=== PATIENT | male | born 1960 | race Caucasian/White ===

== ENCOUNTER → 2019-10-23 14:36 | Outpatient (BNVA) | payer MEDICARE, MEDICAID, SELFPAY | PROVIDERS: Family Provider Internal Medicine; PCP Internal Medicine; Visit Provider Specialist | DX: G40.409 Other generalized epilepsy and epileptic syndromes, not intractable, without status epilepticus (principal); G80.9 Cerebral palsy, unspecified | CPT/HCPCS: 99213 ==

== ENCOUNTER → 2020-04-22 14:15 | Outpatient (BNVA) | payer MEDICARE, MEDICAID, SELFPAY | PROVIDERS: Family Provider Internal Medicine; PCP Internal Medicine; Visit Provider Specialist | DX: G40.909 Epilepsy, unspecified, not intractable, without status epilepticus (principal); G80.9 Cerebral palsy, unspecified; F31.9 Bipolar disorder, unspecified | CPT/HCPCS: 99213 ==

== ENCOUNTER → 2020-11-18 14:13 | Outpatient (BNVA) | payer MEDICARE, MEDICAID, SELFPAY | PROVIDERS: Family Provider Internal Medicine; PCP Internal Medicine; Visit Provider Specialist | DX: G40.909 Epilepsy, unspecified, not intractable, without status epilepticus (principal); G80.9 Cerebral palsy, unspecified; F31.9 Bipolar disorder, unspecified | CPT/HCPCS: 99213 ==

== ENCOUNTER → 2020-12-25 13:10 | Outpatient (BNVA) | payer MEDICARE, MEDICAID, SELFPAY | PROVIDERS: Family Provider Internal Medicine; PCP Internal Medicine; Visit Provider Nurse Practitioner | DX: M79.642 Pain in left hand (principal) | CPT/HCPCS: 73130 ==

== ENCOUNTER → 2021-05-31 09:26 | Outpatient (BNVA) | payer MEDICARE, MEDICAID, SELFPAY | PROVIDERS: Family Provider Internal Medicine; PCP Internal Medicine; Visit Provider Specialist | DX: G40.409 Other generalized epilepsy and epileptic syndromes, not intractable, without status epilepticus (principal); F31.9 Bipolar disorder, unspecified; G80.9 Cerebral palsy, unspecified | CPT/HCPCS: 99213; 99214 ==

== ENCOUNTER → 2021-11-23 09:31 | Outpatient (BNVA) | payer MEDICARE, MEDICAID, SELFPAY | PROVIDERS: Family Provider Internal Medicine; PCP Internal Medicine; Visit Provider Specialist | DX: G40.909 Epilepsy, unspecified, not intractable, without status epilepticus (principal); G80.9 Cerebral palsy, unspecified; F31.9 Bipolar disorder, unspecified | CPT/HCPCS: 99213; 99214 ==

== ENCOUNTER → 2022-05-16 09:51 | Outpatient (BNVA) | payer MEDICARE, MEDICAID, SELFPAY | PROVIDERS: Family Provider Internal Medicine; Visit Provider Specialist | DX: G40.109 Localization-related (focal) (partial) symptomatic epilepsy and epileptic syndromes with simple partial seizures, not intractable, without status epilepticus (principal); G80.9 Cerebral palsy, unspecified; F31.9 Bipolar disorder, unspecified; F42.9 Obsessive-compulsive disorder, unspecified | CPT/HCPCS: 99214 ==

== ENCOUNTER 2022-05-24 08:29 | Outpatient (CLI) | payer MEDICARE, MEDICAID, SELFPAY ==
[2022-05-24 08:38] VITALS: BP 116/74; PULSE 94; RESP 16; TEMP 37.7; O2SAT 99
--- NOTE | 2022-05-24 08:44 | ECG_ITS ---
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 [id number]
[2022-05-24 09:13] LABS: Glucose Point of Care 194 mg/dL (70-110)
--- NOTE | 2022-05-24 09:23 | W.ED.SEIZURE ---
HPI - Seizure General: Chief Complaint: Seizure Stated Complaint: Seizure low blood sugar Time Seen by Provider: 05/24/22 08:44 Source: patient Mode of arrival: ambulatory History of Present Illness: HPI Narrative: 62-year-old male presents emergency room he has a history of seizures. He was given Ativan after a witnessed seizure this morning that lasted a couple of minutes. He was lethargic initially but improved by the time he arrived here he is nearly back to his baseline. Caregiver tried to get a blood sugar on him but they could not obtain 1 they are concerned his blood sugar may have been low he is diabetic he is on Amaryl 4 mg twice a day. Blood glucose here was 194 patient awake alert, at his baseline. No recent medication changes been over a year since he has had a breakthrough seizure. MD complaint: seizure Onset (ago): hour(s) Description of Episode: tonic-clonic movement Witnessed: Yes - by Bystander Trauma: No Seizure History: Yes Place: Home Associated symptoms: Reports confusion (Transient resolved); Deny chest pain, chills, cough, diaphoresis, fever(s), anorexia, malaise, rash, short of breath, syncope or weakness Treatments prior to arrival: benzodiazepines and other (Glucose) Review of Systems Const: Denies: fever(s), chills, fatigue, malaise or diaphoresis ENMT: Denies: throat pain, ear or mastoid pain, nasal discharge or nasal congestion Card: Denies: chest pain, palpitations, irregular heart rhythm or syncope Resp: Denies: dyspnea, productive cough or non-productive cough GI: Denies: abdominal pain, nausea, vomiting, hematemesis, coffee ground emesis, diarrhea, constipation, bloating, hematochezia or melena : Denies: flank pain, dysuria, urinary frequency or urinary urgency Skin/Breast: Denies: rash or pruritus Neuro: Reports: confusion (Transient resolved) PFS ED PFSH: Medical History (Updated 05/24/22 @ 10:54 by Morgan Beach DO) ADD (attention deficit disorder) Bipolar affective disorder Cerebral palsy Diabetes Seizures Social History Smoking and tobacco status: never smoked Alcohol intake: never Physical Exam Const: COMMON NORMALS: no acute distress GENERAL APPEARANCE: cooperative and comfortable ORIENTATION/CONSCIOUSNESS: Yes awake HENMT: COMMON NORMALS: normocephalic, atraumatic and hearing grossly normal bilaterally HEAD & SCALP: normocephalic and atraumatic Resp: COMMON NORMALS: normal respiratory effort, No retractions, No use of accessory muscles and clear to auscultation bilaterally AUSCULTATION: clear to auscultation bilaterally Cardio: COMMON NORMALS: regular rate, regular rhythm and No murmurs present (Cardio) RATE: regular rate RHYTHM: regular rhythm GI: COMMON NORMALS: Soft to palpation and No hepatosplenomegaly present AUSCULTATION: Yes normoactive bowel sounds PALPATION: Yes Soft to palpation, No Tenderness to palpation present (GI), No Guarding due to palpation present (GI) and Yes No hepatosplenomegaly present Extremity: COMMON NORMALS: normal to inspection, capillary refill normal, no clubbing, cyanosis or edema, no calf tenderness and no pedal edema Skin: COMMON NORMALS: no rashes or lesions noted GENERAL SKIN EXAM: no rashes or lesions noted Course Vital Signs: Vital signs: Vital Signs Temperature 99.8 F H 05/24/22 08:38 Pulse Rate 79 05/24/22 10:45 Respiratory Rate 16 05/24/22 08:38 Blood Pressure 116/74 05/24/22 08:38 Pulse Oximetry 95 05/24/22 10:45 Oxygen Delivery Me thod 05/24/22 10:45 MDM - Seizure MDM Narrative Medical decision making narrative: Breakthrough seizure in patient with known history of seizure disorder. No recent medication changes. Lacosamide level done. Refer back to neurology no changes at this time patient initially postictal he recovered from that and is doing well. Additionally did report hypoglycemia prior to EMS arriving. His blood sugars been stable here usually with a sulfonylurea but they have we have extended hypoglycemic episode with recurrent lows. He has not had that here. Because the risk of triggering another seizure would recommend that he cut down to the Amaryl once daily. Follow-up with his primary care doctor regarding continuing at that dose. Lab Data 05/24/22 09:35 05/24/22 09:35 Labs: Laboratory Results WBC 8.7 10^3/uL (4.0-10.0) 05/24/22 09:35 RBC 4.53 10^6/uL (4.1-5.3) 05/24/22 09:35 Hgb 13.1 g/dL (11.7-16.6) 05/24/22 09:35 Hct 39.5 % (42.0-52.0) L 05/24/22 09:35 MCV 87.2 fl (80-94) 05/24/22 09:35 MCH 28.9 pg (28.0-34.0) 05/24/22 09:35 MCHC 33.2 g/dL (30.0-36.0) 05/24/22 09:35 RDW 13.1 % (12.1-15.1) 05/24/22 09:35 Plt Count 192 10^3/cmm (130-400) 05/24/22 09:35 MPV 10.0 fL (7.4-10.4) 05/24/22 09:35 Neut % (Auto) 87.1 % 05/24/22 09:35 Lymph % (Auto) 4.6 % 05/24/22 09:35 Morrison % (Auto) 7.2 % 05/24/22 09:35 Eos % (Auto) 0.3 % 05/24/22 09:35 Baso % (Auto) 0.5 % 05/24/22 09:35 Neut # (Auto) 7.57 10^3/uL (1.8-7.7) 05/24/22 09:35 Lymph # (Auto) 0.4 10^3/uL (0.8-4.8) L 05/24/22 09:35 Morrison # (Auto) 0.6 10^3/uL (0.2-0.9) 05/24/22 09:35 Eos # (Auto) 0.0 10^3/uL (0.0-0.8) 05/24/22 09:35 Baso # (Auto) 0.0 10^3/uL (0.0-0.1) 05/24/22 09:35 Nucleated RBC % (auto) 0 % 05/24/22 09:35 Nucleated RBCs # 0.0 /100WBC 05/24/22 09:35 Sodium 140 mmol/L (136-145) 05/24/22 09:35 Potassium 4.0 mmol/L (3.5-5.1) 05/24/22 09:35 Chloride 100 mmol/L (98-107) 05/24/22 09:35 Carbon Dioxide 28 mmol/L (22-29) 05/24/22 09:35 Anion Gap 16.0 (5-19) 05/24/22 09:35 BUN 12 mg/dL (8-23) 05/24/22 09:35 Creatinine 0.7 mg/dL (0.7-1.2) 05/24/22 09:35 GFR Calculation 113.9 mL/min (90-130) 05/24/22 09:35 Glucose 184 mg/dL (65-115) H 05/24/22 09:35 POC Glucose 157 mg/dL (70-110) H 05/24/22 10:40 Calculated Osmolality 295 mOsm/kg (285-295) 05/24/22 09:35 Calcium 9.5 mg/dL (8.5-10.5) 05/24/22 09:35 Urine Color Yellow (Yellow) 05/24/22 10:10 Urine Appearance Clear (CLEAR) 05/24/22 10:10 Urine pH 8 (5-7) H 05/24/22 10:10 Ur Specific [place] 1.010 (1.005-1.030) 05/24/22 10:10 Urine Protein Neg (Negative) 05/24/22 10:10 Urine Glucose (UA) Norm (Normal) 05/24/22 10:10 Urine Ketones Negative (Negative) 05/24/22 10:10 Urine Blood Neg (Negative) 05/24/22 10:10 Urine Nitrate Negative (Negative) 05/24/22 10:10 Urine Bilirubin Neg (Negative) 05/24/22 10:10 Prot Sulfosalicylic Acd Negative (Negative) 05/24/22 10:10 Urine Urobilinogen Norm mg/dL (Negative) 05/24/22 10:10 Ur Leukocyte Esterase Negative (Negative) 05/24/22 10:10 Discharge Plan Discharge Patient Disposition: Home Clinical Impression: Seizures Condition: Stable Prescriptions: Changed glimepiride 4 mg tablet 4 mg PO DAILY Qty: 30 0RF Rx Instructions: 4 mg orally; No Action multivitamin Capsule 1 cap PO DAILY acetaminophen [Tylenol] 325 mg capsule 650 mg PO QID PRN (Reason: Pain) diphenhydramine HCl [Benadryl] 25 mg capsule 25 mg PO TID PRN (Reason: Allergy Symptoms) calcium carbonate [Oyster Shell Calcium] 500 mg calcium (1,250 mg) tablet 500 mg PO DAILY paroxetine HCl [Paxil] 30 mg tablet 30 mg PO DAILY Qty: 30 5RF omeprazole 20 mg capsule,delayed release(DR/EC) 20 mg PO DAILY Qty: 30 5RF ondansetron HCl [Zofran] 4 mg tablet 4 mg PO Q8H PRN (Reason: nausea and vomiting) Qty: 30 3RF alum-mag hydroxide-simeth [Giana-Lanta] 200-200-20 mg/5 mL suspension 10 ml PO Q6H PRN (Reason: indigestion) Qty: 3000 3RF guaifenesin [Adult Tussin Chest Congestion] 100 mg/5 mL liquid 200 mg PO Q4H PRN (Reason: cough) Qty: 473 0RF Nizoral A-D 1 % shampoo 1 applic topical .four times weekly Qty: 200 3RF loratadine 10 mg tablet 10 mg PO DAILY Qty: 90 3RF magnesium hydroxide [Milk of Magnesia] 400 mg/5 mL suspension See Rx Instructions PO .COMPLEX PRN (Reason: constipation) Qty: 473 5RF Rx Instructions: 30ML PO on 4th day if no BM in 3 days. Call nurse on 5th day. carbamide peroxide [Debrox] 6.5 % drops See Rx Instructions EAR-BOTH .COMPLEX Qty: 15 5RF Rx Instructions: Fill each ear canal daily x 4 days per month; (DME) True Metrix Glucose Test Strip Strip See Rx Instructions .ROUTE .MEDSUPPLY Qty: 100 3RF Rx Instructions: As directed to test blood sugar daily (DME) lancets [TRUEplus Lancets] 30 gauge misc See Rx Instructions .ROUTE .MEDSUPPLY Qty: 100 5RF Rx Instructions: As directed to test blood sugar daily lorazepam [Ativan] 1 mg tablet 1 mg PO Q4H PRN (Reason: agitation) Qty: 20 3RF Vimpat 200 mg tablet 200 mg PO BID Qty: 60 5RF lorazepam [Ativan] 0.5 mg tablet 0.5 mg PO DAILY PRN (Reason: seizure activity) Qty: 90 0RF trazodone 50 mg tablet See Rx Instructions .ROUTE .COMPLEX Qty: 30 5RF Dose Instruction: TAKE 1/2 TABLET BY MOUTH AT BEDTIME Rx Instructions: TAKE 1/2 TABLET BY MOUTH AT BEDTIME polyethylene glycol 3350 [Miralax] 17 gram/dose powder 17 g PO DAILY Qty: 510 3RF Januvia 100 mg tablet See Rx Instructions .ROUTE .COMPLEX Qty: 30 5RF Dose Instruction: TAKE ONE TABLET BY MOUTH EVERY DAY Rx Instructions: TAKE ONE TABLET BY MOUTH EVERY DAY olanzapine 10 mg tablet See Rx Instructions .ROUTE .COMPLEX Qty: 30 5RF Dose Instruction: TAKE 1/2 TABLET BY MOUTH TWICE DAILY Rx Instructions: TAKE 1/2 TABLET BY MOUTH TWICE DAILY Depakote 250 mg Tablet,Delayed Release (Dr/Ec) 250 mg PO BID Discharge Orders: Discharge ED (Routine); Ordered 05/24/22 Ordered By: Morgan Beach Referrals: Eduin Elias MD [Primary Care Provider] - Patient Instructions: Opioid Safety, Pain Management Activity Restrictions/Additional Instructions: You were seen for a seizure this morning. The report was that your blood sugar was low in outpatient setting was normal while here and remained stable. Recommend that you decrease your Amaryl to 1 tablet daily. Follow-up with your primary care doc within the next 2 to 3 weeks to reevaluate. Follow-up with Dr. Shepard regarding her seizures. A lacosamide level was done here in the emergency room. No recommendation for change in medications Dr. Shepard will address this issue. 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
[2022-05-24 09:53] LABS: Basophils % 0.5 %; Eosinophils % 0.3 %; Hematocrit 39.5 % (42.0-52.0); Hemoglobin 13.1 g/dL (11.7-16.6); Lymphocytes # 0.4 10^3/uL (0.8-4.8); Lymphocytes % 4.6 %; Mean Corpuscular HGB Conc 33.2 g/dL (30.0-36.0); Mean Corpuscular Hemoglobin 28.9 pg (28.0-34.0); Mean Corpuscular Volume 87.2 fl (80-94); Monocytes # 0.6 10^3/uL (0.2-0.9); Monocytes % 7.2 %; Neutrophils # 7.57 10^3/uL (1.8-7.7); Neutrophils % 87.1 %; Nucleated Red Blood Cells % 0 %; Platelet Count 192 10^3/cmm (130-400); Red Blood Count 4.53 10^6/uL (4.1-5.3); Red Cell Distribution Width 13.1 % (12.1-15.1); White Blood Count 8.7 10^3/uL (4.0-10.0)
[2022-05-24 10:13] LABS: Add Urine Microscopic? NO; Charge for UA Resulting for Rev
[2022-05-24 10:21] LABS: Blood Urea Nitrogen 12 mg/dL (8-23); Calcium 9.5 mg/dL (8.5-10.5); Carbon Dioxide 28 mmol/L (22-29); Chloride 100 mmol/L (98-107); Glomerular Filtration Rate 113.9 mL/min (90-130); Glucose 184 mg/dL (65-115); Osmolality Calculated 295 mOsm/kg (285-295); Sodium 140 mmol/L (136-145)
[2022-05-24 10:24] VITALS: PULSE 77; O2SAT 97
[2022-05-24 10:31] LABS: Bilirubin Urine Neg (Negative); Blood Urine Neg (Negative); Glucose Urine UA Norm (Normal); Ketones Urine Negative (Negative); Leukocyte Esterase Urine Negative (Negative); Nitrate Urine Negative (Negative); Protein Urine Neg (Negative); Sulfosalicylic Acid Urine Negative (Negative); Urine Appearance Clear (CLEAR); Urine Color Yellow (Yellow); Urobilinogen Urine Norm (Negative); pH Urine 8 (5-7)
[2022-05-24 10:42] LABS: Glucose Point of Care 157 mg/dL (70-110)
[2022-05-24 10:45] VITALS: PULSE 79; O2SAT 95
[2022-05-27 09:14] LABS: Lacosamie (Vimpat) 7.6 mcg/mL
--- NOTE | 2022-07-24 13:57 | XRR_ITS ---
PROCEDURE INFORMATION: Exam: XR Right Hip Exam date and time: 07/24/2022 1:59 PM Age: 62 years old Clinical indication: Injury or trauma; Fall; Blunt trauma (contusions or hematomas); Right; Hip; Additional info: Ground level fall and pain TECHNIQUE: Imaging protocol: Radiologic exam of the Right hip. Views: 1 view hip with pelvis when performed. COMPARISON: No relevant prior studies available. FINDINGS: Bones/joints: Intertrochanteric right hip fracture with foreshortening. Soft tissues: Unremarkable. XR/XR hip RT 2-3V wo/w pel* [id number] IMPRESSION: Intertrochanteric right hip fracture with foreshortening.
--- NOTE | 2022-07-24 13:57 | XRR_ITS ---
PROCEDURE INFORMATION: Exam: XR Right Femur Exam date and time: 07/24/2022 1:59 PM Age: 62 years old Clinical indication: Injury or trauma; Fall; Blunt trauma; Thigh or upper leg; Right; Additional info: Ground level fall and pain TECHNIQUE: Imaging protocol: Radiologic exam of the Right femur. Views: 2 views. COMPARISON: No relevant prior studies available. FINDINGS: Bones/joints: Intertrochanteric right hip fracture with foreshortening. The rest of the femur is intact. Soft tissues: Unremarkable. XR/XR femur RT min 2V* [id number] IMPRESSION: Intertrochanteric right hip fracture with foreshortening.
--- NOTE | 2022-07-24 13:57 | XRR_ITS ---
PROCEDURE INFORMATION: Exam: XR Right Tibia and Fibula Exam date and time: 07/24/2022 1:59 PM Age: 62 years old Clinical indication: Injury or trauma; Fall; Blunt trauma; Lower leg; Right; Additional info: Ground level fall and pain TECHNIQUE: Imaging protocol: Radiologic exam of the Right tibia and fibula. Views: 2 views. COMPARISON: No relevant prior studies available. FINDINGS: Bones/joints: Tibia and fibula are intact. Negative for fracture. Soft tissues: Normal. XR/XR tibia fibula RT 2V [id number] IMPRESSION: No acute findings.
== END 2022-07-24 13:24 | disposition home or self-care (01) ==
LOC: ER 10:54 → RAD 07-24 13:31
PROVIDERS: Emergency Provider Family Medicine; PCP Internal Medicine; Visit Provider Nurse Practitioner Family
DX: R56.9 Unspecified convulsions (principal); G80.9 Cerebral palsy, unspecified; E11.9 Type 2 diabetes mellitus without complications; W19.XXXA Unspecified fall, initial encounter; S72.091A Other fracture of head and neck of right femur, initial encounter for closed fracture
CPT/HCPCS: 36415; 36416; 73502; 73552; 73590; 80048; 80299; 81003; 82962; 85025; 93005; 99284

== ENCOUNTER 2022-07-24 15:45 | Inpatient (IN) | payer MEDICARE, MEDICAID, SELFPAY ==
--- NOTE | 2022-07-24 15:47 | XRR_ITS ---
PROCEDURE INFORMATION: Exam: XR Chest Exam date and time: 07/24/2022 4:24 PM Age: 62 years old Clinical indication: Injury or trauma; Fall; Blunt trauma (contusions or hematomas) TECHNIQUE: Imaging protocol: Radiologic exam of the chest. Views: 1 view. COMPARISON: No relevant prior studies available. FINDINGS: Lungs: Lungs are clear. Pleural spaces: There is no pleural effusion or pneumothorax. Heart/Mediastinum: Cardiomediastinal contours are unremarkable. Bones/joints: Bones are unremarkable. XR/XR chest 1V portable [id number] IMPRESSION: No acute findings.
[2022-07-24 15:48] VITALS: BMI 19.2
--- NOTE | 2022-07-24 16:00 | ED_ITS ---
HPI - Extremity Problem General: Chief complaint: Extremity Injury, Lower Stated complaint: Right hip pain Time Seen by Provider: 07/24/22 15:48 Source: family Mode of arrival: wheelchair Limitations: physical limitation History of Present Illness: 62-year-old male has a history of intellectual delay he lives in a prison he states that he was standing up from the bathroom and tripped on his pants and fell onto his right side he had right hip pain they took him to urgent care they had x-rays done that showed a right hip fracture. Denies any other injuries at this time. Review of Systems General: Reports: ROS unobtainable due to mental status PFS ED PFSH: Medical History (Updated 07/24/22 @ 16:04 by Caren Norman MD) ADD (attention deficit disorder) Bipolar affective disorder Cerebral palsy Diabetes Seizures Social History Smoking and tobacco status: never smoked Alcohol intake: never Physical Exam Const: COMMON NORMALS: negative for patient oriented x3 GENERAL APPEARANCE: patient mechanically ventilated HENMT: COMMON NORMALS: normocephalic and atraumatic HEAD & SCALP: normocephalic and atraumatic Eye: COMMON NORMALS: conjunctivae normal CONJUNCTIVA: Yes conjunctivae normal Neck/C-Spine: COMMON NORMALS: supple Chest: COMMONS NORMALS: normal inspection of the chest and normal palpation of entire chest wall Resp: COMMON NORMALS: normal respiratory effort Cardio: COMMON NORMALS: regular rate RATE: regular rate GI: INSPECTION: Yes normal to inspection Extremity: NARRATIVE EXTREMITY EXAM: Tenderness over right hip distal pulses intact Neuro: COMMON NORMALS: negative for patient oriented x3 Psych: COMMON NORMALS: cooperative Skin: COMMON NORMALS: no rashes or lesions noted GENERAL SKIN EXAM: no rashes or lesions noted MDM - Extremity (Nontraumatic) Medical Decision Making Patient presents here with right hip fracture from a fall he had no other known injuries he is at his baseline here spoke to hospitalist along with orthopedist and will admit. Discharge Plan Discharge Patient Disposition: Admitted As Inpatient Clinical Impression: Fracture of hip Condition: Stable Prescriptions: No Action multivitamin Capsule 1 cap PO DAILY acetaminophen [Tylenol] 325 mg capsule 650 mg PO QID PRN (Reason: Pain) omeprazole 20 mg capsule,delayed release(DR/EC) 20 mg PO DAILY Qty: 30 5RF glimepiride 4 mg tablet 4 mg PO DAILY Qty: 30 5RF Rx Instructions: 4 mg orally; alum-mag hydroxide-simeth [Giana-Lanta] 200-200-20 mg/5 mL suspension 10 ml PO Q6H PRN (Reason: indigestion) Qty: 3000 3RF guaifenesin [Adult Tussin Chest Congestion] 100 mg/5 mL liquid 200 mg PO Q4H PRN (Reason: cough) Qty: 473 0RF magnesium hydroxide [Milk of Magnesia] 400 mg/5 mL suspension See Rx Instructions PO .COMPLEX PRN (Reason: constipation) Qty: 473 5RF Rx Instructions: 30ML PO on 4th day if no BM in 3 days. Call nurse on 5th day. trazodone 50 mg tablet See Rx Instructions .ROUTE .COMPLEX Qty: 30 5RF Dose Instruction: TAKE 1/2 TABLET BY MOUTH AT BEDTIME Rx Instructions: TAKE 1/2 TABLET BY MOUTH AT BEDTIME Januvia 100 mg tablet See Rx Instructions .ROUTE .COMPLEX Qty: 30 5RF Dose Instruction: TAKE ONE TABLET BY MOUTH EVERY DAY Rx Instructions: TAKE ONE TABLET BY MOUTH EVERY DAY olanzapine 10 mg tablet See Rx Instructions .ROUTE .COMPLEX Qty: 30 5RF Dose Instruction: TAKE 1/2 TABLET BY MOUTH TWICE DAILY Rx Instructions: TAKE 1/2 TABLET BY MOUTH TWICE DAILY paroxetine HCl 30 mg tablet See Rx Instructions .ROUTE .COMPLEX Qty: 30 5RF Dose Instruction: TAKE ONE TABLET BY MOUTH DAILY Rx Instructions: TAKE ONE TABLET BY MOUTH DAILY Depakote 250 mg tablet,delayed release (DR/EC) 250 mg PO BID Qty: 60 11RF (DME) True Metrix Glucose Test Strip Strip See Rx Instructions .ROUTE .COMPLEX Qty: 100 5RF Dose Instruction: USE TO test blood sugar ONCE DAILY DIRECTED Rx Instructions: USE TO test blood sugar ONCE DAILY DIRECTED (DME) lancets [TRUEplus Lancets] 30 gauge misc See Rx Instructions .ROUTE .COMPLEX Qty: 100 5RF Dose Instruction: USE TO test blood sugar ONCE DAILY Rx Instructions: USE TO test blood sugar ONCE DAILY polyethylene glycol 3350 17 gram/dose powder See Rx Instructions .ROUTE .COMPLEX Qty: 510 5RF Dose Instruction: FILL CAP TO LINE (17 GRAMS), MIX IN 8 OUNCES OF LIQUID AND DRINK BY MOUTH ONCE DAILY Rx Instructions: FILL CAP TO LINE (17 GRAMS), MIX IN 8 OUNCES OF LIQUID AND DRINK BY MOUTH ONCE DAILY loratadine 10 mg tablet See Rx Instructions .ROUTE .COMPLEX Qty: 90 3RF Dose Instruction: TAKE ONE TABLET BY MOUTH EVERY DAY Rx Instructions: TAKE ONE TABLET BY MOUTH EVERY DAY Ear Wax Removal Drops 6.5 % drops See Rx Instructions .ROUTE .COMPLEX Qty: 15 5RF Dose Instruction: Fill each ear canal daily for 4 days per month; Rx Instructions: Fill each ear canal daily for 4 days per month; diphenhydramine HCl [Allergy Relief(diphenhydramin)] 25 mg tablet See Rx Instructions .ROUTE .COMPLEX Qty: 90 5RF Dose Instruction: TAKE ONE TABLET BY MOUTH EVERY 8 HOURS NEEDED FOR CONGESTION Rx Instructions: TAKE ONE TABLET BY MOUTH EVERY 8 HOURS NEEDED FOR CONGESTION ketoconazole 2 % shampoo See Rx Instructions .ROUTE .COMPLEX Qty: 200 3RF Dose Instruction: APPLY topically four times WEEKLY Rx Instructions: APPLY topically four times WEEKLY ondansetron 4 mg tablet,disintegrating See Rx Instructions .ROUTE .COMPLEX Qty: 30 5RF Dose Instruction: DISSOLVE ONE TABLET BY MOUTH NEEDED FOR NAUSEA AND VOMITING Rx Instructions: DISSOLVE ONE TABLET BY MOUTH NEEDED FOR NAUSEA AND VOMITING alcohol swabs Pads, Medicated See Rx Instructions .ROUTE .COMPLEX Qty: 100 5RF Dose Instruction: USE ONE pad topically daily DIRECTED Rx Instructions: USE ONE pad topically daily DIRECTED glucose 4 gram tablet,chewable See Rx Instructions .ROUTE .COMPLEX Qty: 50 0RF Dose Instruction: USE DIRECTED PER package directions Rx Instructions: USE DIRECTED PER package directions Vimpat 200 mg tablet 200 mg PO BID Qty: 60 5RF lorazepam 0.5 mg tablet 0.5 mg PO BID PRN (Reason: seizures) Qty: 40 3RF calcium carbonate-vitamin D3 [Oyster Shell Calcium-Vit D3] 500 mg-5 mcg (200 unit) tablet See Rx Instructions .ROUTE .COMPLEX Qty: 30 5RF Dose Instruction: TAKE ONE TABLET BY MOUTH EVERY DAY FOR SUPPLEMENT Rx Instructions: TAKE ONE TABLET BY MOUTH EVERY DAY FOR SUPPLEMENT fluticasone propionate 50 mcg/actuation spray,suspension See Rx Instructions .ROUTE .COMPLEX Qty: 16 0RF Dose Instruction: USE ONE SPRAY IN EACH NOSTRIL EVERY DAY NEEDED FOR nasal congestion Rx Instructions: USE ONE SPRAY IN EACH NOSTRIL EVERY DAY NEEDED FOR nasal congestion Sentry 18-400 mg-mcg tablet See Rx Instructions .ROUTE .COMPLEX Qty: 30 0RF Dose Instruction: TAKE ONE TABLET BY MOUTH EVERY DAY FOR supplement Rx Instructions: TAKE ONE TABLET BY MOUTH EVERY DAY FOR supplement Referrals: Bernard Gonzalez DO [Primary Care Provider] - Coding Level of Care Code ED Broadcast Maintenance Engineer for g Dorothy
--- NOTE | 2022-07-24 16:02 | ECG_ITS ---
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 Measurements Intervals [place] Rate: 97 P: 84 WI: 202 QRS: 77 QRSD: 100 T: 70 QT: 316 QTc: 402 Interpretive Statements SINUS RHYTHM INCOMPLETE RIGHT BUNDLE BRANCH BLOCK [90+ ms QRS DURATION, TERMINAL R IN V1/V2, 40+ ms S IN I/aVL/V4/V5/V6] Compared to ECG 05/24/2022 10:06:23 First degree AV block no longer present Electronically Signed On 07-25-2022 8:53:26 SEED CORN MANAGER PRODUCTION by Carlos Escalera M.D. [id number]
[2022-07-24] MEDS: morphine 4 mg/mL SDV 1 mL IVP (16:07)
[2022-07-24] MEDS: ondansetron 2 mg/ML SDV 2 mL 4 MG IVP (16:07)
[2022-07-24 16:12] LABS: Basophils % 0.3 %; Hematocrit 33.6 % (42.0-52.0); Hemoglobin 11.1 g/dL (11.7-16.6); Lymphocytes # 0.4 10^3/uL (0.8-4.8); Lymphocytes % 2.5 %; Mean Corpuscular Hemoglobin 28.5 pg (28.0-34.0); Mean Corpuscular Volume 86.2 fl (80-94); Mean Platelet Volume 10.2 fL (7.4-10.4); Monocytes # 0.6 10^3/uL (0.2-0.9); Monocytes % 4.3 %; Neutrophils # 13.54 10^3/uL (1.8-7.7); Neutrophils % 92.5 %; Nucleated Red Blood Cells % 0 %; Platelet Count 284 10^3/cmm (130-400); Red Cell Distribution Width 13.7 % (12.1-15.1); White Blood Count 14.6 10^3/uL (4.0-10.0)
[2022-07-24 16:25] LABS: INR 1.01 (0.8-1.2)
[2022-07-24 16:34] LABS: Alanine Aminotransferase 13 U/L (0-41); Albumin Level 4.3 g/dL (3.5-5.2); Alkaline Phosphatase 71 U/L (40-130); Aspartate Amino Transferase 17 U/L (0-40); Blood Urea Nitrogen 15 mg/dL (8-23); Calcium 9.1 mg/dL (8.5-10.5); Carbon Dioxide 26 mmol/L (22-29); Chloride 89 mmol/L (98-107); Glomerular Filtration Rate 97.6 mL/min (90-130); Glucose 302 mg/dL (65-115); Osmolality Calculated 276 mOsm/kg (285-295); Sodium 127 mmol/L (136-145); Total Bilirubin 0.2 mg/dL (0.15-1.2); Total Protein 7.3 g/dL (6.6-8.7)
--- NOTE | 2022-07-24 16:34 | P.HP_ITS ---
Providers/Chief Complaint Primary Care Provider: Bernard Gonzalez DO Chief Complaint: Right hip pain History of Present Illness Leandra Sorto is a 62 year old male with history of intellectual disability, seizures, diabetes, presented to the hospital after sustaining a fall. As per the caregiver patient soiled himself in the asked him to change his pants, patient wanted to stay independent and get up on his own in order to change his pants however he lost his balance and landed on his hips He did not lose consciousness, no chest pain, nausea, vomiting no recent fever. He eats mechanical soft diet, diabetic diet. He is on oral antihyperglycemic agents, he takes Vimpat and Depakote daily and antipsychotics. I have reviewed medications he is full code Sister is at the bedside I have reviewed his home medications, caregiver is also present in the room who provided me the history Sister also present in the room to assist me I will add Vimpat, Depakote, antipsychotics, patient also takes Xanax 1 mg every 4 hours on as-needed basis Review of Systems General: Reports: ROS unobtainable due to medical condition Medications/Allergies Home Medications Medication Instructions Recorded Confirmed Last Taken Type acetaminophen 325 mg capsule 650 mg PO QID PRN Pain 10/02/19 07/24/22 Unknown History (Tylenol) multivitamin 1 cap PO DAILY 10/02/19 07/24/22 05/23/22 History aluminum-mag hydroxide-simethicone 10 ml PO Q6H PRN indigestion 06/21/21 07/24/22 Unknown Rx 200 mg-200 mg-20 mg/5 mL oral susp #3,000 mL (Giana-Lanta) guaifenesin 100 mg/5 mL oral 200 mg (10 mL) PO Q4H PRN cough 06/21/21 07/24/22 Unknown Rx liquid (Adult Tussin Chest #473 mL Congestion) magnesium hydroxide 400 mg/5 mL See Rx Instructions PO .COMPLEX 07/29/21 07/24/22 Unknown Rx oral suspension (Milk of Magnesia) PRN constipation #473 mL omeprazole 20 mg capsule,delayed 20 mg PO DAILY #30 caps 11/23/21 07/24/22 05/23/22 Rx release trazodone 50 mg tablet See Rx Instructions .Route 02/07/22 07/24/22 05/23/22 Rx .COMPLEX #30 tabs olanzapine 10 mg tablet See Rx Instructions .Route 05/17/22 07/24/22 05/23/22 Rx .COMPLEX #30 tabs sitagliptin phosphate 100 mg See Rx Instructions .Route 05/17/22 07/24/22 05/23/22 Rx tablet (Januvia) .COMPLEX #30 tabs paroxetine HCl 30 mg tablet See Rx Instructions .Route 05/24/22 07/24/22 Unknown Rx .COMPLEX #30 tabs glimepiride 4 mg tablet 4 mg PO DAILY #30 tabs 05/25/22 07/24/22 Unknown Rx divalproex 250 mg tablet,delayed 250 mg PO BID #60 tabs 06/14/22 07/24/22 Unknown Rx release (Depakote) alcohol swabs See Rx Instructions .Route 06/16/22 07/24/22 Unknown Rx .COMPLEX #100 ea blood sugar diagnostic (True #100 ea 06/16/22 07/24/22 Unknown Rx Metrix Glucose Test Strip) carbamide peroxide 6.5 % ear drops See Rx Instructions .Route 06/16/22 07/24/22 Unknown Rx (Ear Wax Removal Drops) .COMPLEX #15 mL diphenhydramine HCl 25 mg tablet See Rx Instructions .Route 06/16/22 07/24/22 Unknown Rx (Allergy Relief (diphenhydramine)) .COMPLEX #90 tabs ketoconazole 2 % shampoo See Rx Instructions .Route 06/16/22 07/24/22 Unknown Rx .COMPLEX #200 mL lancets 30 gauge (TRUEplus Lancets) ##100 06/16/22 07/24/22 Unknown Rx loratadine 10 mg tablet See Rx Instructions .Route 06/16/22 07/24/22 Unknown Rx .COMPLEX #90 tabs ondansetron 4 mg disintegrating See Rx Instructions .Route 06/16/22 07/24/22 Unknown Rx tablet .COMPLEX #30 tabs polyethylene glycol 3350 17 See Rx Instructions .Route 06/16/22 07/24/22 Unknown Rx gram/dose oral powder .COMPLEX #510 grams glucose 4 gram chewable tablet See Rx Instructions .Route 06/28/22 07/24/22 Unknown Rx .COMPLEX #50 ea lacosamide 200 mg tablet (Vimpat) 200 mg PO BID #60 tabs 06/29/22 07/24/22 Unknown Rx lorazepam 0.5 mg tablet 0.5 mg PO BID PRN seizures #40 tabs 06/30/22 07/24/22 Unknown Rx calcium carbonate 500 mg-vitamin See Rx Instructions .Route 07/05/22 07/24/22 Unknown Rx D3 5 mcg (200 unit) tablet (Oyster .COMPLEX #30 tabs Shell Calcium-Vitamin D3) fluticasone propionate 50 See Rx Instructions .Route 07/07/22 07/24/22 Unknown Rx mcg/actuation nasal .COMPLEX #16 grams spray,suspension multivitamin-ferrous See Rx Instructions .Route 07/20/22 07/24/22 Unknown Rx fumarate-folic acid 18 mg-400 mcg .COMPLEX #30 tabs tablet (Sentry) Allergies Allergy/AdvReac Type Severity Reaction Status Date / Time carbamazepine [From Tegretol] Allergy Unknown Verified 06/16/22 11:12 gabapentin [From Neurontin] Allergy Unknown Verified 06/16/22 11:12 haloperidol [From Haldol] Allergy Unknown Verified 06/16/22 11:12 levothyroxine sodium Allergy Unknown Verified 06/16/22 11:12 [From Levoxyl] Penicillins Allergy Unknown Verified 06/16/22 11:12 PFSH Acute PFSH: Medical History ADD (attention deficit disorder) Bipolar affective disorder Cerebral palsy Diabetes Seizures TBI (traumatic brain injury) Surgical History History of colonoscopy 12/11/2012 - NORMAL Social History Smoking and tobacco status: never smoked Alcohol intake: never Vitals/I&O/Wt Weight last 48 hrs Weight 57.425 kg Physical Exam Narrative: Patient is euvolemic Awake and alert A only oriented to himself Intellectually challenged Family at the bedside Abdomen soft Patient is complaining of pain to the family Doing well on room air No we will try to wheezing No active chest pain Neuro exam is limited Spastic paresis of extremities Data 07/24/22 16:00 07/24/22 16:00 A&P Assessment and plan (1) Fracture of hip: Qualifiers: Encounter type: initial encounter Fracture type: closed Laterality: right Qualified Code(s): S72.001A - Fracture of unspecified part of neck of right femur, initial encounter for closed fracture (2) Diabetes type 2, uncontrolled: Qualifiers: Glycemic state: with hyperglycemia Qualified Code(s): E11.65 - Type 2 diabetes mellitus with hyperglycemia (3) Temporal lobe epilepsy: (4) Cerebral palsy: Qualifiers: Cerebral palsy type: unspecified type Qualified Code(s): G80.9 - Cerebral palsy, unspecified (5) ADD (attention deficit disorder): (6) Bipolar affective disorder: (7) Seizures: (8) Diabetes: Qualifiers: Diabetes mellitus type: type 2 Diabetes mellitus [facility] insulin use: without [facility] use Diabetes mellitus complication status: without complication Qualified Code(s): E11.9 - Type 2 diabetes mellitus without complications Plan Hip fracture Surgery in the morning N.p.o. after midnight No need of cardiac work-up He ambulates on his own however does have gait assist He eats mechanical soft diet, diabetic diet He is full code History of seizures take Vimpat and Depakote He also takes antipsychotics Full code N.p.o. after midnight Continue IV fluid hydration Place Ocampo catheter Dilaudid for analgesia Attestations Medical Necessity Statement*: Anticipating more than 2 midnights Coding Level of Care Code 53215 Diagnoses Fracture of hip S72.001A Encounter type: initial encounter Fracture type: closed Laterality: right Diabetes type 2, uncontrolled E11.65 Glycemic state: with hyperglycemia Temporal lobe epilepsy G40.109 Cerebral palsy G80.9 Cerebral palsy type: unspecified type ADD (attention deficit disorder) F98.8 Bipolar affective disorder F31.9 Seizures R56.9 Diabetes E11.9 Diabetes mellitus type: type 2 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
[2022-07-24 16:41] LABS: Anion Gap 16.1 (5-19)
[2022-07-24 16:42] LABS: Potassium 4.1 mmol/L (3.5-5.1)
[2022-07-24 17:07] VITALS: BP 124/68; PULSE 99; O2SAT 96
[2022-07-24 18:20] VITALS: BMI 19.8
[2022-07-24 18:50] LABS: Vitamin B12 970 pg/mL (232-1245)
[2022-07-24 20:00] VITALS: BP 101/64; PULSE 91; RESP 16; TEMP 36.9; O2SAT 94
--- NOTE | 2022-07-24 20:18 | PC.NURSE ---
173 Patient recieved from ED accompained per his niece and Staff from [facility] in [place]
[2022-07-24 20:50] VITALS: RESP 16
[2022-07-24] MEDS: quetiapine 25 mg Tablet PO (20:50)
[2022-07-24] MEDS: OLANZapine 10 mg TABLET 5 MG PO (20:50)
[2022-07-24] MEDS: morphine IR 15 mg Tablet PO (20:50)
[2022-07-24] MEDS: sodium chloride 0.9% 1,000 ML 75 ML IV (20:51)
[2022-07-24 23:20] VITALS: O2SAT 95
[2022-07-25] VITALS (93 sets, daily range): BP systolic 65–124; BP diastolic 43–78; PULSE 90–145; RESP 7–27; TEMP 36.4–39; O2SAT 82–100
[2022-07-25 04:13] LABS: Basophils % 0.3 %; Eosinophils % 0.5 %; Hematocrit 25.2 % (42.0-52.0); Hemoglobin 8.4 g/dL (11.7-16.6); Lymphocytes # 0.9 10^3/uL (0.8-4.8); Lymphocytes % 13.8 %; Mean Corpuscular HGB Conc 33.3 g/dL (30.0-36.0); Mean Corpuscular Hemoglobin 28.4 pg (28.0-34.0); Mean Corpuscular Volume 85.1 fl (80-94); Mean Platelet Volume 10.1 fL (7.4-10.4); Monocytes % 14.4 %; Neutrophils # 4.71 10^3/uL (1.8-7.7); Neutrophils % 70.7 %; Nucleated Red Blood Cells % 0 %; Platelet Count 212 10^3/cmm (130-400); Red Blood Count 2.96 10^6/uL (4.1-5.3); Red Cell Distribution Width 13.5 % (12.1-15.1); White Blood Count 6.7 10^3/uL (4.0-10.0)
[2022-07-25 04:35] LABS: Blood Urea Nitrogen 15 mg/dL (8-23); Calcium 8.9 mg/dL (8.5-10.5); Carbon Dioxide 28 mmol/L (22-29); Chloride 91 mmol/L (98-107); Glomerular Filtration Rate 113.9 mL/min (90-130); Glucose 201 mg/dL (65-115); Magnesium 1.7 mg/dL (1.7-2.3); Osmolality Calculated 271 mOsm/kg (285-295); Phosphorus 3.1 mg/dL (2.5-4.5); Sodium 127 mmol/L (136-145)
[2022-07-25] MEDS: HYDROmorphone 1 mg/mL INJ 1 mL 0.4 MG IVP ×2 (05:13→21:00)
[2022-07-25] MEDS: ondansetron 2 mg/ML SDV 2 mL 4 MG IVP (05:13)
--- NOTE | 2022-07-25 06:46 | PM.CONSULT ---
Providers/Reason For Consult Consulting Physician/Specialty*: Orthopedics Reason for Consult*: Right hip pain Attending Physician: June Severino MD Primary Care Provider: Bernard Gonzalez DO History of Present Illness History of Present Illness Leandra Sorto is a 62 year old male with history of cerebral palsy, history of seizures, diabetes. Caregiver, who was present in the room during examination states that he soiled himself and in the attempts to clean himself became tangled in his pants fell sustained injury to his right hip. Presented to the emergency room where x-rays confirmed a right hip fracture. He was admitted for more definitive care. Denies any loss of consciousness. Reports right hip pain movement making it much worse is constant sharp stabbing in nature. Has not found much to help relieve his symptoms other than medication and rest. Denies any back or neck pain denies any arm or shoulder or elbow pain denies any wrist pain. An extensive review of the patient's past medical history, surgical history, allergies, medications, family history, social history, and review of systems was completed Review of Systems General: Reports: ROS unobtainable due to medical condition Medications/Allergies Home Medications Medication Instructions Recorded Confirmed Last Taken Type acetaminophen 325 mg capsule 650 mg PO Q6H PRN Pain 10/02/19 07/24/22 Unknown History (Tylenol) multivitamin 1 cap PO DAILY 10/02/19 07/24/22 07/24/22 08:00 History aluminum-mag hydroxide-simethicone 10 ml PO Q6H PRN indigestion 06/21/21 07/24/22 Unknown Rx 200 mg-200 mg-20 mg/5 mL oral susp #3,000 mL (Giana-Lanta) guaifenesin 100 mg/5 mL oral 200 mg (10 mL) PO Q4H PRN cough 06/21/21 07/24/22 Unknown Rx liquid (Adult Tussin Chest #473 mL Congestion) magnesium hydroxide 400 mg/5 mL See Rx Instructions PO .COMPLEX 07/29/21 07/24/22 Unknown Rx oral suspension (Milk of Magnesia) PRN constipation #473 mL omeprazole 20 mg capsule,delayed 20 mg PO DAILY #30 caps 11/23/21 07/24/22 07/24/22 08:00 Rx release trazodone 50 mg tablet See Rx Instructions .Route 02/07/22 07/24/22 07/23/22 21:00 Rx .COMPLEX #30 tabs sitagliptin phosphate 100 mg See Rx Instructions .Route 05/17/22 07/24/22 07/24/22 08:00 Rx tablet (Januvia) .COMPLEX #30 tabs paroxetine HCl 30 mg tablet See Rx Instructions .Route 05/24/22 07/24/22 07/24/22 08:00 Rx .COMPLEX #30 tabs glimepiride 4 mg tablet 4 mg PO DAILY #30 tabs 05/25/22 07/24/22 07/24/22 08:00 Rx divalproex 250 mg tablet,delayed 250 mg PO BID #60 tabs 06/14/22 07/24/22 07/24/22 08:00 Rx release (Depakote) alcohol swabs See Rx Instructions .Route 06/16/22 07/24/22 Unknown Rx .COMPLEX #100 ea blood sugar diagnostic (True #100 ea 06/16/22 07/24/22 Unknown Rx Metrix Glucose Test Strip) diphenhydramine HCl 25 mg tablet See Rx Instructions .Route 06/16/22 07/24/22 Unknown Rx (Allergy Relief (diphenhydramine)) .COMPLEX #90 tabs ketoconazole 2 % shampoo See Rx Instructions .Route 06/16/22 07/24/22 07/24/22 08:00 Rx .COMPLEX #200 mL lancets 30 gauge (TRUEplus Lancets) ##100 06/16/22 07/24/22 Unknown Rx loratadine 10 mg tablet See Rx Instructions .Route 06/16/22 07/24/22 07/24/22 08:00 Rx .COMPLEX #90 tabs polyethylene glycol 3350 17 See Rx Instructions .Route 06/16/22 07/24/22 07/24/22 08:00 Rx gram/dose oral powder .COMPLEX #510 grams glucose 4 gram chewable tablet See Rx Instructions .Route 06/28/22 07/24/22 Unknown Rx .COMPLEX #50 ea lacosamide 200 mg tablet (Vimpat) 200 mg PO BID #60 tabs 06/29/22 07/24/22 07/24/22 08:00 Rx calcium carbonate 500 mg-vitamin See Rx Instructions .Route 07/05/22 07/24/22 07/24/22 08:00 Rx D3 5 mcg (200 unit) tablet (Oyster .COMPLEX #30 tabs Shell Calcium-Vitamin D3) multivitamin-ferrous See Rx Instructions .Route 07/20/22 07/24/22 07/24/22 08:00 Rx fumarate-folic acid 18 mg-400 mcg .COMPLEX #30 tabs tablet (Sentry) lorazepam 1 mg tablet 1 mg PO DAILY PRN Seizures 07/24/22 07/24/22 Unknown History lorazepam 1 mg tablet 1 mg PO Q4H PRN Agitation 07/24/22 07/24/22 Unknown History olanzapine 5 mg tablet (Zyprexa) 5 mg PO BID 07/24/22 07/24/22 07/24/22 08:00 History sitagliptin phosphate 100 mg 100 mg PO DAILY 07/24/22 07/24/22 07/24/22 08:00 History tablet (Januvia) Allergies Allergy/AdvReac Type Severity Reaction Status Date / Time carbamazepine [From Tegretol] Allergy Unknown Verified 06/16/22 11:12 gabapentin [From Neurontin] Allergy Unknown Verified 06/16/22 11:12 haloperidol [From Haldol] Allergy Unknown Verified 06/16/22 11:12 levothyroxine sodium Allergy Unknown Verified 06/16/22 11:12 [From Levoxyl] Penicillins Allergy Unknown Verified 06/16/22 11:12 Current Medications Generic Name Dose Route Start Last Admin Trade Name Freq PRN Reason Stop Dose Admin Hydromorphone HCl 0.4 mg 07/24/22 17:38 07/25/22 05:13 Hydromorphone 1 Mg/Ml Inj 1 Ml IVP 0.4 mg Q4H PRN Administration pain Sodium Chloride 1,000 mls @ 75 mls/hr 07/24/22 17:38 07/24/22 20:51 Sodium Chloride 0.9% IV 75 mls/hr .[id number] PAULO Administration Morphine Sulfate 15 mg 07/24/22 17:38 07/24/22 20:50 Morphine Ir 15 Mg Tablet PO 15 mg Q6H PRN Administration pAIN Olanzapine 5 mg 07/24/22 20:00 07/24/22 20:50 Olanzapine 10 Mg Tablet PO 5 mg BID PAULO Administration Ondansetron HCl 4 mg 07/24/22 17:38 07/25/22 05:13 Ondansetron 2 Mg/Ml Sdv 2 Ml IVP 4 mg Q6H PRN Administration NAUSEA AND VOMITING PFSH Acute PFSH: Medical History ADD (attention deficit disorder) Bipolar affective disorder Cerebral palsy Diabetes Seizures TBI (traumatic brain injury) Surgical History History of colonoscopy 12/11/2012 - NORMAL Social History Smoking and tobacco status: never smoked Alcohol intake: never Vitals/I&O/Wt Last Vital Signs Temp 99.4 F 07/25/22 04:00 Pulse 93 07/25/22 04:00 Resp 15 07/25/22 05:13 BP 93/58 07/25/22 04:00 Pulse Ox 93 07/25/22 04:00 O2 Del Method 07/25/22 04:00 07/24/22 07/24/22 07/25/22 14:59 22:59 06:59 Output Total 800 / 800 Balance -800 / -800 Weight last 48 hrs Weight 126 lb 6 oz Weight 126 lb 9.6 oz Physical Exam Narrative: Patient is alert oriented no apparent distress. Makes eye contact. Is able to communicate. Has palpable pain over the right hip he is in the left lateral recumbent position has a positive logroll on the right. He is able to wiggle his toes are warm to the touch with good cap refill. Dorsalis pedis posterior tibial pulses are palpable. Calves are supple. No palpable left hip pain about the knee or ankle. No palpable low low back thoracic or neck pain. No palpable shoulder elbow or wrist pain bilaterally. Good sensation light touch in both upper extremities hands warm good cap refill radial pulses are palpable. HENMT: COMMON NORMALS: normocephalic and atraumatic HEAD & SCALP: normocephalic and atraumatic Resp: COMMON NORMALS: normal respiratory effort Cardio: COMMON NORMALS: regular rate and regular rhythm RATE: regular rate RHYTHM: regular rhythm GI: COMMON NORMALS: Soft to palpation and non-tender PALPATION: Yes Soft to palpation : COMMON NORMALS: Yes no CVA tenderness BLADDER/KIDNEY EXAM: Yes no CVA tenderness Back/Pelvis: COMMON NORMALS: no CVA tenderness Psych: COMMON NORMALS: mental status grossly normal and cooperative Urinary Catheter Management: Ocampo: Cath Placed During This Visit: yes Reason for Continuing Indwelling Catheter: Perioperative Use in Selected Surgeries Urinary Catheter Date of Insertion: 07/24/22 Urinary Catheter Time of Insertion: 21:00 Data 07/25/22 03:59 07/25/22 03:59 A&P Assessment and plan (1) Intertrochanteric fracture of right hip: Discussed the operative procedure with the patient and the caregiver present. The sister who is power of laser beam trim operator is told that she was going to be here at some point today. I encouraged the caregiver to call her to get her to the hospital to help with signing of the consent. We will keep him n.p.o. Discussed with the nurses that to he will be going to surgery at some point today for intertrochanteric hip nailing to the right hip. Discussed this with Dr. Ponce agrees above-stated plan. More than 50% of the time spent with the patient today involved coordination of care, counseling and discussion of conservative versus surgical treatment options. Total amount of time spent with the patient was 35 minutes. (2) Cerebral palsy: Qualifiers: Cerebral palsy type: unspecified type Qualified Code(s): G80.9 - Cerebral palsy, unspecified Coding Level of Care Code Acute Code for [facility] Fwd Diagnoses Intertrochanteric fracture of right hip S72.141A Cerebral palsy G80.9 Cerebral palsy type: unspecified type Time Spent (min) 35
[2022-07-25] MEDS: OLANZapine 10 mg TABLET 5 MG PO (08:54)
[2022-07-25] MEDS: HYDROmorphone 1 mg/mL INJ 1 mL 0.5 MG IVP (10:32)
[2022-07-25 10:33] LABS: Glucose Point of Care 257 mg/dL (70-110)
[2022-07-25] MEDS: sodium chloride 0.9% 1,000 ML 30 ML IV (10:33)
--- NOTE | 2022-07-25 10:39 | W.PM.OPSUD ---
Surgery/Procedure H&P Update DATE OF PROCEDURE: July 25, 2022 DATE H&P PERFORMED: 07/25/22 H&P UPDATE INFORMATION: I have reviewed H&P completed within last 30 days, I have examined patient prior to procedure and No changes to prior documentation PREOP DIAGNOSIS: Right intertrochanteric hip fracture, cerebral palsy PLANNED PROCEDURE: Operation Date: 07/25/22 15:30 Proposed Procedures p Trochanteric Femoral Nail(Right) - Glen Ponce DO
--- NOTE | 2022-07-25 11:30 | ANES.PREANE2 ---
Pre-Anesthetic Assessment Height/Weight: Height 1.7 m Weight 57.323 kg Temp Pulse Resp BP Pulse Ox O2 Del Method 98.9 F 100 16 109/59 91 07/25/22 10:09 07/25/22 10:09 07/25/22 10:32 07/25/22 10:09 07/25/22 10:09 07/25/22 10:09 Preop Diagnosis: Right intertrochanteric hip fracture, cerebral palsy Operation Date: 07/25/22 15:30 Proposed Procedures p Trochanteric Femoral Nail(Right) - Glen Ponce, DO Familial anesthetic complications: none Was Beta Maggie taken within 24 hours: N/A Was Clonidine taken within 24 hours: N/A Last intake: Intake Last Liquid Date 07/24/22 Last Liquid Time 21:00 Last Solid Date 07/24/22 Last Solid Time 21:00 Social No alcohol and No tobacco Exam alert, oriented x 3, clear to auscultation bilaterally and regular rate & rhythm Airway Submandibular: within normal limits Cervical ROM: within normal limits Mallampati: Class II Dentition: chipped Comments: Comments: poor dentition GI Gastroesophageal Reflux Disease Metabolic Diabetes Mellitus Neuropsych Anxiety, Bipolar, Depression and Seizure CP, developmental delay Anesthetic Plan ASA status: 3 Anesthesia: General Medications/Allergies Home Medications Medication Instructions Recorded Confirmed Last Taken Type acetaminophen 325 mg capsule 650 mg PO Q6H PRN Pain 10/02/19 07/24/22 Unknown History (Tylenol) multivitamin 1 cap PO DAILY 10/02/19 07/24/22 07/24/22 08:00 History aluminum-mag hydroxide-simethicone 10 ml PO Q6H PRN indigestion 06/21/21 07/24/22 Unknown Rx 200 mg-200 mg-20 mg/5 mL oral susp #3,000 mL (Giana-Lanta) guaifenesin 100 mg/5 mL oral 200 mg (10 mL) PO Q4H PRN cough 06/21/21 07/24/22 Unknown Rx liquid (Adult Tussin Chest #473 mL Congestion) magnesium hydroxide 400 mg/5 mL See Rx Instructions PO .COMPLEX 07/29/21 07/24/22 Unknown Rx oral suspension (Milk of Magnesia) PRN constipation #473 mL omeprazole 20 mg capsule,delayed 20 mg PO DAILY #30 caps 11/23/21 07/24/22 07/24/22 08:00 Rx release trazodone 50 mg tablet See Rx Instructions .Route 02/07/22 07/24/22 07/23/22 21:00 Rx .COMPLEX #30 tabs sitagliptin phosphate 100 mg See Rx Instructions .Route 05/17/22 07/24/22 07/24/22 08:00 Rx tablet (Januvia) .COMPLEX #30 tabs paroxetine HCl 30 mg tablet See Rx Instructions .Route 05/24/22 07/24/22 07/24/22 08:00 Rx .COMPLEX #30 tabs glimepiride 4 mg tablet 4 mg PO DAILY #30 tabs 05/25/22 07/24/22 07/24/22 08:00 Rx divalproex 250 mg tablet,delayed 250 mg PO BID #60 tabs 06/14/22 07/24/22 07/24/22 08:00 Rx release (Depakote) alcohol swabs See Rx Instructions .Route 06/16/22 07/24/22 Unknown Rx .COMPLEX #100 ea blood sugar diagnostic (True #100 ea 06/16/22 07/24/22 Unknown Rx Metrix Glucose Test Strip) diphenhydramine HCl 25 mg tablet See Rx Instructions .Route 06/16/22 07/24/22 Unknown Rx (Allergy Relief (diphenhydramine)) .COMPLEX #90 tabs ketoconazole 2 % shampoo See Rx Instructions .Route 06/16/22 07/24/22 07/24/22 08:00 Rx .COMPLEX #200 mL lancets 30 gauge (TRUEplus Lancets) ##100 06/16/22 07/24/22 Unknown Rx loratadine 10 mg tablet See Rx Instructions .Route 06/16/22 07/24/22 07/24/22 08:00 Rx .COMPLEX #90 tabs polyethylene glycol 3350 17 See Rx Instructions .Route 06/16/22 07/24/22 07/24/22 08:00 Rx gram/dose oral powder .COMPLEX #510 grams glucose 4 gram chewable tablet See Rx Instructions .Route 06/28/22 07/24/22 Unknown Rx .COMPLEX #50 ea lacosamide 200 mg tablet (Vimpat) 200 mg PO BID #60 tabs 06/29/22 07/24/22 07/24/22 08:00 Rx calcium carbonate 500 mg-vitamin See Rx Instructions .Route 07/05/22 07/24/22 07/24/22 08:00 Rx D3 5 mcg (200 unit) tablet (Oyster .COMPLEX #30 tabs Shell Calcium-Vitamin D3) multivitamin-ferrous See Rx Instructions .Route 07/20/22 07/24/22 07/24/22 08:00 Rx fumarate-folic acid 18 mg-400 mcg .COMPLEX #30 tabs tablet (Sentry) lorazepam 1 mg tablet 1 mg PO DAILY PRN Seizures 07/24/22 07/24/22 Unknown History lorazepam 1 mg tablet 1 mg PO Q4H PRN Agitation 07/24/22 07/24/22 Unknown History olanzapine 5 mg tablet (Zyprexa) 5 mg PO BID 07/24/22 07/24/22 07/24/22 08:00 History sitagliptin phosphate 100 mg 100 mg PO DAILY 07/24/22 07/24/22 07/24/22 08:00 History tablet (Januvia) Allergies Allergy/AdvReac Type Severity Reaction Status Date / Time carbamazepine [From Tegretol] Allergy Unknown Verified 06/16/22 11:12 gabapentin [From Neurontin] Allergy Unknown Verified 06/16/22 11:12 haloperidol [From Haldol] Allergy Unknown Verified 06/16/22 11:12 levothyroxine sodium Allergy Unknown Verified 06/16/22 11:12 [From Levoxyl] Penicillins Allergy Unknown Verified 06/16/22 11:12 Current Medications Generic Name Dose Route Start Last Admin Trade Name Freq PRN Reason Stop Dose Admin Divalproex Sodium 250 mg 07/25/22 09:00 07/25/22 08:[address] 250 Mg Tablet PO Not Given BID PAULO Hydromorphone HCl 0.4 mg 07/24/22 17:38 07/25/22 05:13 Hydromorphone 1 Mg/Ml Inj 1 Ml IVP 0.4 mg Q4H PRN Administration pain Hydromorphone HCl 0.5 mg 07/25/22 10:09 07/25/22 10:32 Hydromorphone 1 Mg/Ml Inj 1 Ml IVP 0.5 mg ONCE PRN Administration For preop pain/anxiety Sodium Chloride 1,000 mls @ 75 mls/hr 07/24/22 17:38 07/24/22 20:51 Sodium Chloride 0.9% IV 75 mls/hr .[id number] PAULO Administration Sodium Chloride 1,000 mls @ 30 mls/hr 07/25/22 10:15 07/25/22 10:33 Sodium Chloride 0.9% IV 07/26/22 10:14 30 mls/hr .Q24H PAULO Administration Lacosamide 200 mg 07/25/22 09:00 07/25/22 08:52 Lacosamide 50 Mg Tablet PO Not Given BID PAULO Morphine Sulfate 15 mg 07/24/22 17:38 07/24/22 20:50 Morphine Ir 15 Mg Tablet PO 15 mg Q6H PRN Administration pAIN Olanzapine 5 mg 07/24/22 20:00 07/25/22 08:54 Olanzapine 10 Mg Tablet PO 5 mg BID PAULO Administration Ondansetron HCl 4 mg 07/24/22 17:38 07/25/22 05:13 Ondansetron 2 Mg/Ml Sdv 2 Ml IVP 4 mg Q6H PRN Administration NAUSEA AND VOMITING Senna/Docusate Sodium 1 tab 07/25/22 09:00 07/25/22 08:52 Sennosides-Docusate Tablet PO Not Given DAILY PAULO PFSH Anesthesia Medical History ADD (attention deficit disorder) Bipolar affective disorder Cerebral palsy Diabetes Seizures TBI (traumatic brain injury) Surgical History History of colonoscopy 12/11/2012 - NORMAL Social History Smoking and tobacco status: never smoked Alcohol intake: never Data Anesthesia 07/25/22 03:59 07/25/22 03:59 Short CBC 07/24/22 07/25/22 Range/Units 16:00 03:59 WBC 14.6 H 6.7 (4.0-10.0) 10^3/uL Hgb 11.1 L 8.4 L (11.7-16.6) g/dL Hct 33.6 L 25.2 L (42.0-52.0) % MCV 86.2 85.1 (80-94) fl Plt Count 284 212 (130-400) 10^3/cmm Neut % (Auto) 92.5 70.7 % Neut # (Auto) 13.54 H 4.71 (1.8-7.7) 10^3/uL BMP 07/24/22 07/25/22 16:00 03:59 Sodium 127 L 127 L Potassium 4.1 4.0 Chloride 89 L 91 L Carbon Dioxide 26 28 BUN 15 15 Creatinine 0.8 0.7 Glucose 302 H 201 H Calcium 9.1 8.9 Liver Function 07/24/22 Range/Units 16:00 Total Bilirubin 0.2 (0.15-1.2) mg/dL AST 17 (0-40) U/L ALT 13 (0-41) U/L Alkaline Phosphatase 71 (40-130) U/L Albumin 4.3 (3.5-5.2) g/dL Coags 07/24/22 16:00 PT 13.60 INR 1.01 Cardiac Studies: No Data to Display
--- NOTE | 2022-07-25 11:56 | PC.CHAP ---
Pastoral Care Encounter/Spiritual Assessment Type of Contact [] Declined personal property appraiser visit [] Patient/Family/Request visit [] Outpatient visit [] Follow-up visit [] Physician referral [] Code/Alert [x] Routine visit [] Staff referral [] Actively dying [] Patient sleeping [] Family support [] [x] Out of room [] Palliative care [] [] Receiving care in room [] Pre-surgical visit [] Trauma [] Long length of stay [] ICU visit [] Other: Relational/Emotional Strength [] Patient feels connected with others/family/visitors/staff [] Distress [] Loneliness/isolation [] Abandonment Spirituality of Patient [] Person of Camille [] Attends Latter-Day of their Camille [] Believes in Prayer [] Reads Bible or Restorationist materials [] There are Spiritual issues to be addressed Cephalometric Analyst Interventions [] Prayer [] Active listening [] Non-anxious presence [] Spiritual/emotional support [] Crisis/trauma care [] Spiritual counseling [] Bereavement support [] Provided bereavement packet [] Provided Bible/devotional materials [] Provided toy/stuffed animal, coloring book to patient or family member [] Provided Communion [] Anointing/[place] [] Salvation [] Completed spiritual assessment [] Other: Impact on Illness or Injury [] Angry [] Fearful [] Anxious [] Often cries [] Exhaustion [] Unable to work [] Unable to attend scientology [] Unable to walk/stand [] Unable to read [] Unable to drive [] Unable to eat/drink [] Unable to sleep [] Unable to be with family [] Patient intubated [] Other: Summary Time spent with patient
[2022-07-25] MEDS: clindamycin 900 MG/50 ML PREMIX 100 MG IV (12:02)
--- NOTE | 2022-07-25 12:09 | PM.PN ---
Subjective Subjective: This morning patient is going for surgical intervention No overnight events Patient is calm Ocampo cath draining clear urine Vitals/I&O/Wt Last Vital Signs Temp 98.9 F 07/25/22 10:09 Pulse 100 07/25/22 10:09 Resp 16 07/25/22 10:32 BP 109/59 07/25/22 10:09 Pulse Ox 91 07/25/22 10:09 O2 Del Method 07/25/22 10:09 07/24/22 07/25/22 07/25/22 22:59 06:59 14:59 Output Total 800 / 800 Balance -800 / -800 Weight last 48 hrs Weight 57.323 kg Weight 57.425 kg Physical Exam Narrative: Patient is laying supine Active distress Ocampo cath draining dilute urine Abdomen soft S1, S2 Currently on room air Neuro exam is limited Family is at the bedside Urinary Catheter Management: Ocampo: Cath Placed During This Visit: yes Reason for Continuing Indwelling Catheter: Perioperative Use in Selected Surgeries Urinary Catheter Date of Insertion: 07/24/22 Urinary Catheter Time of Insertion: 21:00 Data 07/25/22 03:59 07/25/22 03:59 A&P Assessment and plan (1) Intertrochanteric fracture of right hip: (2) Fracture of hip: Qualifiers: Encounter type: initial encounter Fracture type: closed Laterality: right Qualified Code(s): S72.001A - Fracture of unspecified part of neck of right femur, initial encounter for closed fracture (3) Diabetes type 2, uncontrolled: Qualifiers: Glycemic state: with hyperglycemia Qualified Code(s): E11.65 - Type 2 diabetes mellitus with hyperglycemia (4) Secondarily generalized seizures: (5) Cerebral palsy: Qualifiers: Cerebral palsy type: unspecified type Qualified Code(s): G80.9 - Cerebral palsy, unspecified (6) Bipolar affective disorder: (7) Seizures: Plan Intertrochanteric hip fracture Going for surgical intervention Patient might need rehab depending on his physical therapy assessment after the surgery We will put him on mechanical soft consistent carb diet after surgery Start DVT prophylaxis 4 hours after the procedure Continue on seizure medications No overnight events Pain control with opioids Ocampo catheter will stay in for now Family at the bedside Full code Updated machine adjuster leader case trim, spoke with the family at the bedside Attestations Medical Necessity Statement*: Continue medical management Coding Level of Care Code 22117 Diagnoses Intertrochanteric fracture of right hip S72.141A Fracture of hip S72.001A Encounter type: initial encounter Fracture type: closed Laterality: right Diabetes type 2, uncontrolled E11.65 Glycemic state: with hyperglycemia Secondarily generalized seizures Cerebral palsy G80.9 Cerebral palsy type: unspecified type Bipolar affective disorder F31.9 Seizures R56.9
--- NOTE | 2022-07-25 12:54 | P.OP_ITS ---
Operative Report Date of procedure: July 25, 2022 Pre-op diagnosis: Preop Diagnosis Right intertrochanteric hip fracture, cerebral palsy Post-op diagnosis: same Procedure done: 1. Right intramedullary hip nail Surgeon: Glen Ponce Air Traffic Controller: Duke Lopes Air Traffic Controller: The surgical services asst, Duke Lopes, PAC was needed for his expertise with fracture care. He was important and necessary throughout the procedure to complete in a safe and timely manner. He assisted with patient positioning prepping and draping tissue retraction suctioning of the operative field protection of the critical structures and tissue closure Estimated blood loss (mL): 25 Procedure: 1. Right intramedullary hip nail Patient was brought to the operative suite after undergoing anesthesia all areas impingement were well-padded. Patient was placed on the Seney table fracture was reduced with traction and internal rotation. C-arm imaging confirmed this. Patient was then prepped and draped normal sterile fashion. Skin incision made at the tip the greater trochanter. The starting pin was inserted open reamer was inserted and then the gamma nail was inserted. The wire was passed up into the center center position of the femoral head through the nail. The screw path was drilled. And 105 mm screw was placed up into the femoral head. And locked into position. And then the distal locking screw of the nail was locked into position. AP lateral fluoroscopy ensured the fracture and hardware in appropriate position. Wounds were irrigated closed with Vicryl and seb. Sterile dressings were applied and patient was transferred to the PACU in stable condition.
--- NOTE | 2022-07-25 12:55 | XR_ITS ---
WS: [id number] Right hip, C-arm fluoroscopy views, 07/25/2022 Clinical Data: OR PICS Comparison: Right hip, 07/24/2022 Findings: Internal fixation of the intertrochanteric fracture right hip with an oblique femoral neck screw and a proximal right intramedullary tracey is seen. Dr. Ponce performed the internal fixation XR/XR hip RT 1V wo/w pel [id number] Impression: Internal fixation of intertrochanteric fracture of the right hip.
[2022-07-25 14:44] LABS: Glucose Point of Care 237 mg/dL (70-110)
[2022-07-25] MEDS: sodium chloride 0.9% 1,000 ML 100 ML IV (14:49)
--- NOTE | 2022-07-25 15:14 | XRR_ITS ---
PROCEDURE INFORMATION: Exam: XR Chest Exam date and time: 07/25/2022 3:17 PM Age: 62 years old Clinical indication: Other: Hypoxia TECHNIQUE: Imaging protocol: Radiologic exam of the chest. Views: 1 view. COMPARISON: CR XR chest 1V portable [id number] 07/24/2022 4:24 PM FINDINGS: Lungs: Curvilinear right basilar scarring. Retrocardiac opacity noted. Pleural spaces: Unremarkable. No pleural effusion. No pneumothorax. Heart/Mediastinum: Unremarkable. No cardiomegaly. Bones/joints: Unremarkable. XR/XR chest 1V portable [id number] IMPRESSION: Retrocardiac opacity which may reflect infiltrate/pneumonia or atelectasis.
--- NOTE | 2022-07-25 16:33 | ECG_ITS ---
[facility] Test Date: 2022-07-25 Pat Name: Leandra Sorto Department: Room: 256 Gender: Male Transfer Driver: : 1960 Requested By: June Severino Order Number: [id number] Wilkinson MD: Carlos Escalera M.D. Measurements Intervals [place] Rate: 141 P: -71 WI: 146 QRS: 46 QRSD: 94 T: 61 QT: 289 QTc: 443 Interpretive Statements SINUS TACHYCARDIA MODERATE ST DEPRESSION [0.05+ mV ST DEPRESSION] Compared to ECG 07/24/2022 16:02:27 ST (T wave) deviation now present Sinus rhythm no longer present Incomplete right bundle-branch block no longer present Electronically Signed On 07-25-2022 17:45:58 MARINE MACHINIST by Carlos Escalera M.D. [id number]
[2022-07-25] MEDS: ketorolac 30 mg/mL INJ IVP (16:44)
[2022-07-25] MEDS: dilTIAZem 5 mg/mL SDV 5 mL IVP (17:04)
[2022-07-25] MEDS: FUROsemide 10 mg/mL SDV 2mL 20 MG IVP (17:05)
[2022-07-25] MEDS: acetaminophen 500 mg Tablet PO ×2 (17:28→21:01)
[2022-07-25] MEDS: divalproex DR 250 mg Tablet PO (17:29)
[2022-07-25] MEDS: lacosamide 50 mg Tablet 200 MG PO (17:29)
[2022-07-25] MEDS: piperacillin-tazobactam 3.375 GM in sodium chloride 0.9% (plus) 50 ML IV (17:33)
[2022-07-25 17:46] LABS: Glucose Point of Care 299 mg/dL (70-110)
[2022-07-25] MEDS: insulin lispro 100 unit/1 mL SUBCUT (17:49)
[2022-07-25 18:13] LABS: D Dimer 5.43 ug/mIFEU (0-0.59)
--- NOTE | 2022-07-25 18:31 | PC.NURSE ---
Patient returned from surgery in the late afternoon, bp soft and on 2LNC with remaining VSS. About an hour later patients respiratory needs changed, patient awake and alert and this nurse educated patient to cough and deep breath and use IS. Patient sang Justin Capellan for us to help decrease oxygen needs and increase pulse ox, HR elevated as well. Patient then placed on non-rebreather as physician placed orders. At which point patient became hypotensive and remained tachycardic and developed a fever. See chart for VS. Caregivers at bedside and updated guardian via phone. Physician then placed orders for ICU transfer.
--- NOTE | 2022-07-25 18:32 | USCV_ITS ---
Leandra Sorto Age: 62 Gender: M : 1960 Exam Date: 07/25/2022 19:11 Ordering Phys: June Severino MD Technologist: BARBARA Exam Location: [facility] Indication: hypoxia s/p RIGHT hip surgery. No history of DVT. HISTORY: hypoxia s/p RIGHT hip surgery. No history of DVT. PROCEDURES: Venous duplex imaging was performed in bilateral lower extremities. The following venous structures were evaluated: common femoral vein, profunda vein, proximal portion of the greater saphenous vein, superficial femoral vein, and the popliteal vein. In addition, the posterior tibial veins were evaluated. FINDINGS: Normal 2-D Doppler and augmentation and compressibility throughout the lower extremity venous structures. Additional imaging through the proximal calf veins also reveals no thrombus. Limited evaluation of the greater saphenous vein is patent with no thrombus. CONCLUSIONS No DVT bilateral lower extremities. Dr. Viry Rivera DO (Electronically Signed) Final Date: 26 July 2022 07:46 S
--- NOTE | 2022-07-25 18:32 | CTR_ITS ---
PROCEDURE INFORMATION: Exam: CTA Chest With Contrast Exam date and time: 07/25/2022 11:22 PM Age: 62 years old Clinical indication: Abnormal findings; Abnormal lab test; Other: Na; Abnormal diagnostic tests; Elevated d-dimer; Shortness of breath; Prior surgery; Surgery type: RT hip; Patient HX: SOB with d dimer of 5.43. Prominent bowel gas pattern on kub xray. ; Additional info: Hypoxia/abd pain TECHNIQUE: Imaging protocol: Computed tomographic angiography of the chest with contrast. 3D rendering (Not supervised by radiologist): MIP and/or 3D reconstructed images were created by the technologist. Radiation optimization: All CT scans at this facility use at least one of these dose optimization techniques: automated exposure control; mA and/or kV adjustment per patient size (includes targeted exams where dose is matched to clinical indication); or iterative reconstruction. Contrast material: OMNI 350; Contrast volume: 125 ml; Contrast route: INTRAVENOUS (IV); Other protocol: This patient has received 0 known CTs and 0 known cardiac nuclear medicine studies in the 12 months prior to the current study. COMPARISON: CR XR chest 1V portable [id number] 07/25/2022 3:17 PM RADIATION DOSE METRICS: Total DLP (mGy-cm): 1003.19 COMPARISON MORE: CTA Chest-Pulmonary Em 02/01/2013 10:39 PM FINDINGS: Pulmonary arteries: There is no evidence of filling defects within the pulmonary arterial circulation to suggest pulmonary embolism. Aorta: There is no thoracic aortic aneurysm or dissection. Lungs: There is consolidation with air bronchograms in the dependent portions of the left lower lobe and also posterior medially in the right lower lobe worrisome for bilateral pneumonia. There are calcified granulomas in both lungs. 6 mm nodule right upper lobe image number 107 of series 16.For patients at low risk (minimal or absent history of smoking and of other known risk factors), recommend CT Chest at 6-12 months, then consider CT Chest at 18-24 months. For patients at high risk (history of smoking or of other known risk factors), recommend CT Chest at 6-12 months, then CT Chest at 18-24 months. (Reference: Juan David) Pleural spaces: Unremarkable. No pneumothorax. No pleural effusion. Heart: Unremarkable. No cardiomegaly. No pericardial effusion. Lymph nodes: There is some calcified hilar lymph nodes in keeping with old granulomatous disease. There is no evidence of lymphadenopathy. Bones/joints: Unremarkable. No acute fracture. Soft tissues: Unremarkable. REFERENCES: Juan David Schofield et al. Guidelines for Management of Incidental Pulmonary Nodules Detected on CT Images: From the Fleischner Society 2017. Radiology. 2017;284(1):228-243. PROCEDURE INFORMATION: Exam: CT Abdomen And Pelvis With Contrast Exam date and time: 07/25/2022 11:22 PM Age: 62 years old Clinical indication: Abnormal findings; Abnormal lab test; Other: Na; Abnormal diagnostic tests; Elevated d-dimer; Shortness of breath; Prior surgery; Surgery type: RT hip; Patient HX: SOB with d dimer of 5.43. Prominent bowel gas pattern on kub xray. ; Additional info: Hypoxia/abd pain TECHNIQUE: Imaging protocol: Computed tomography of the abdomen and pelvis with contrast. Radiation optimization: All CT scans at this facility use at least one of these dose optimization techniques: automated exposure control; mA and/or kV adjustment per patient size (includes targeted exams where dose is matched to clinical indication); or iterative reconstruction. Contrast material: OMNI 350; Contrast volume: 125 ml; Contrast route: INTRAVENOUS (IV); Other protocol: This patient has received 0 known CTs and 0 known cardiac nuclear medicine studies in the 12 months prior to the current study. COMPARISON: CR (ABDOMEN, ) 07/25/2022 10:32 PM RADIATION DOSE METRICS: Total DLP (mGy-cm): 1003.19 FINDINGS: Limitations: Study somewhat limited due to streak artifact created by the patient being scanned with the arms at the sides. Liver: There is a tiny fatty lesion in the liver such as a small lipoma on image 13 series 10 and 4 mm hypodensity inferior right lobe of the liver likely benign cyst but too small to definitively characterize by this CT scan. Gallbladder and bile ducts: Multiple calcified gallstones are present. Pancreas: The pancreas is normal. Spleen: The spleen is normal. Adrenal glands: The adrenal glands are normal. Kidneys and ureters: 4.7 cm benign simple cyst upper pole left kidney. There is a 5 mm cortical hypodensity in each kidney most likely small benign simple cysts but too small to definitively characterize by this CT scan. Stomach and bowel: There is no evidence of intestinal obstruction. Appendix: A normal appendix is identified. Intraperitoneal space: There is no evidence of free intraperitoneal fluid. Vasculature: The aorta is normal. There is no evidence of an abdominal aortic aneurysm. Lymph nodes: There is no evidence of lymphadenopathy. Urinary bladder: There is diffuse thickening of the urinary bladder wall which could be due to a combination of limited distention of the bladder and muscular hypertrophy of the bladder wall. Please correlate for any clinical signs or symptoms of urinary tract infection. There is a Ocampo catheter within the urinary bladder. Reproductive: The prostate demonstrates moderate nonspecific enlargement. The seminal vesicles are normal. Bones/joints: There is recent right femoral neck fracture post internal fixation with metallic hardware. Soft tissues: Unremarkable. CT/CT angio chest w abd pel w con IMPRESSION: 1. Bilateral lower lobe pneumonia. 2. No evidence of pulmonary embolism. IMPRESSION: 1. No acute findings in the abdomen or pelvis. 2. Thickened urinary bladder wall. Please correlate for any clinical signs or symptoms of urinary tract infection. COMMENTS: Consistent with the [place] [employer]'s Incidental Findings Committee white paper (J Am Lashawn Radiol 2018): Any incidental renal lesion less than 1 cm or classified as too small to characterize, or any incidental cystic renal lesion characterized as simple-appearing, is likely benign. No follow-up imaging is recommended for these lesions per consensus recommendations based on imaging criteria.
[2022-07-25 18:40] LABS: Basophils % 0.2 %; Hematocrit 23.1 % (42.0-52.0); Hemoglobin 7.7 g/dL (11.7-16.6); Lymphocytes # 0.3 10^3/uL (0.8-4.8); Lymphocytes % 5.6 %; Mean Corpuscular HGB Conc 33.3 g/dL (30.0-36.0); Mean Corpuscular Hemoglobin 28.3 pg (28.0-34.0); Mean Corpuscular Volume 84.9 fl (80-94); Mean Platelet Volume 9.8 fL (7.4-10.4); Monocytes # 0.3 10^3/uL (0.2-0.9); Monocytes % 7.1 %; Neutrophils # 4.01 10^3/uL (1.8-7.7); Neutrophils % 86.9 %; Nucleated Red Blood Cells % 0 %; Platelet Count 173 10^3/cmm (130-400); Red Blood Count 2.72 10^6/uL (4.1-5.3); Red Cell Distribution Width 13.7 % (12.1-15.1); White Blood Count 4.6 10^3/uL (4.0-10.0)
[2022-07-25 18:54] LABS: Lactic Sepsis W/Reflex 2.2 mmol/L (0.5-2.2)
[2022-07-25 19:05] LABS: Slide Review Slide Review Perform
[2022-07-25] MEDS: aztreonam 2,000 MG in sodium chloride 0.9% (plus) 100 ML 200 MG IV (19:30)
[2022-07-25] MEDS: sodium chloride 0.9% 1,000 ML 75 ML IV (19:45)
[2022-07-25 20:15] LABS: Reflex Lactate Order REFLEX LACTIC ORDERD
[2022-07-25] MEDS: vancomycin 1,000 MG in sodium chloride 0.9% 250 ML 250 MG IV (20:58)
[2022-07-25] MEDS: enoxaparin 60 mg/0.6 mL Syringe SUBCUT (20:58)
--- NOTE | 2022-07-25 22:24 | XRR_ITS ---
PROCEDURE INFORMATION: Exam: XR Abdomen Exam date and time: 07/25/2022 10:32 PM Age: 62 years old Clinical indication: Abdominal pain; Additional info: Vomiting, abnormal chest xray revealing stomach air TECHNIQUE: Imaging protocol: Radiologic exam of the abdomen. Views: Frontal supine view of the abdomen. 1 View. COMPARISON: CR XR chest 1V portable [id number] 07/25/2022 3:17 PM FINDINGS: Limitations: Study is limited by portable technique. Gastrointestinal tract: There is nonspecific bowel gas pattern with increased large and small bowel gas in a nonobstructive pattern. Postsurgical changes in the right hip are partly included on this exam. Bones/joints: See Gastrointestinal tract finding. XR/XR KUB portable [id number] IMPRESSION: Nonspecific bowel gas pattern
[2022-07-25] MEDS: iohexol 350 mg/mL 500 mL Btl (per mL) IV (23:33)
[2022-07-26] VITALS (274 sets, daily range): BP systolic 69–138; BP diastolic 41–86; PULSE 83–126; RESP 7–33; TEMP 37.4–38.9; O2SAT 87–100
[2022-07-26 01:18] LABS: Hematocrit 23.9 % (42.0-52.0); Hemoglobin 7.9 g/dL (11.7-16.6); Mean Corpuscular HGB Conc 33.1 g/dL (30.0-36.0); Mean Corpuscular Hemoglobin 28.5 pg (28.0-34.0); Mean Corpuscular Volume 86.3 fl (80-94); Mean Platelet Volume 9.9 fL (7.4-10.4); Platelet Count 205 10^3/cmm (130-400); Red Blood Count 2.77 10^6/uL (4.1-5.3); Red Cell Distribution Width 13.7 % (12.1-15.1); White Blood Count 8.1 10^3/uL (4.0-10.0)
[2022-07-26 01:35] LABS: Anion Gap 13.5 (5-19); Blood Urea Nitrogen 20 mg/dL (8-23); Calcium 8.2 mg/dL (8.5-10.5); Carbon Dioxide 25 mmol/L (22-29); Chloride 95 mmol/L (98-107); Glomerular Filtration Rate 85.2 mL/min (90-130); Glucose 160 mg/dL (65-115); Osmolality Calculated 274 mOsm/kg (285-295); Potassium 4.5 mmol/L (3.5-5.1); Sodium 129 mmol/L (136-145)
[2022-07-26 02:18] LABS: Absolute Segmented Neutrophil 3.8 10/cmm (1.6-7.1); Band Neutrophils Absolute 1.9 10^3/cmm (0.0-1.2); Lymphocytes 21 %; Monocytes Absolute 0.7 10^3/cmm (0.1-0.6); Segmented Neutrophils 47 %; Total Cells Counted 100 (0-100)
[2022-07-26 02:20] LABS: Eosinophils 0 %
[2022-07-26 02:43] LABS: Absolute Neutrophil 5.7 10^3/cmm (1.4-6.5); Lymphocytes Absolute 1.7 10^3/cmm (1.2-3.4); Platelet Estimate Normal (Normal)
[2022-07-26] MEDS: HYDROcodone-acetaminophen 5-325 mg Tablet PO ×2 (02:51→19:29)
[2022-07-26] MEDS: aztreonam 2,000 MG in sodium chloride 0.9% (plus) 100 ML 200 MG IV ×2 (05:17→17:15)
--- NOTE | 2022-07-26 05:58 | P.PN_ITS ---
Subjective Subjective: Bilateral pneumonia evident on the imaging Febrile events noted overnight No leukocytosis, lactic acid is normal Urine output 1 L Positive fluid balance No signs of PE Concern for cystitis request UA Patient on 6 L nasal cannula Levophed being titrated off Chest x-ray showing bilateral pneumonia CT abdomen pelvis report showing pneumonia as well no signs of PE Vitals/I&O/Wt Last Vital Signs Temp 99.4 F 07/26/22 02:10 Pulse 86 07/26/22 05:54 Resp 17 07/26/22 05:05 BP 105/61 07/26/22 05:05 Pulse Ox 100 07/26/22 05:05 O2 Del Method 07/25/22 18:37 O2 Flow Rate 6 07/25/22 18:37 07/25/22 07/25/22 07/26/22 14:59 22:59 06:59 Intake Total 1100 / 1100 1040.875 / 2140.875 274.32 / 2415.195 Output Total 260 / 260 Balance 840 / 840 1040.875 / 1880.875 274.32 / 2155.195 Weight last 48 hrs Weight 57.323 kg Weight 57.425 kg Physical Exam Narrative: Patient on 6 L Bilateral breath sounds with rhonchi and physical breathing Abdomen soft Ocampo catheter draining urine Neuro exam is limited S1, S2 Sinus rhythm Sinus tachycardia improving Abdomen soft Surgical site without any active oozing Urinary Catheter Management: Ocampo: Cath Placed During This Visit: yes Reason for Continuing Indwelling Catheter: Perioperative Use in Selected Surgeries Urinary Catheter Date of Insertion: 07/24/22 Urinary Catheter Time of Insertion: 21:00 Data 07/26/22 01:12 07/26/22 01:12 Micro: Microbiology 07/25/22 18:27 Blood Culture - Preliminary Blood SPECIMEN COLLECTED 07/25/22 18:20 Blood Culture - Preliminary Blood SPECIMEN COLLECTED A&P Assessment and plan (1) Intertrochanteric fracture of right hip: (2) Diabetes type 2, uncontrolled: Qualifiers: Glycemic state: with hyperglycemia Qualified Code(s): E11.65 - Type 2 diabetes mellitus with hyperglycemia (3) Temporal lobe epilepsy: (4) Cerebral palsy: Qualifiers: Cerebral palsy type: unspecified type Qualified Code(s): G80.9 - Cerebral palsy, unspecified (5) Seizures: (6) Diabetes: Qualifiers: Diabetes mellitus complication status: without complication Diabetes mellitus senior care insulin use: without senior care use Diabetes mellitus type: type 2 Qualified Code(s): E11.9 - Type 2 diabetes mellitus without complications (7) Postoperative sepsis: (8) Hospital-acquired pneumonia: Plan Postop sepsis Septic shock required vasopressors and IV fluids Patient: Broad-spectrum antibiotics Request UA Imaging of lungs showing bilateral pneumonia Levo running at 8 mics High D-dimer most likely related to severe sepsis No signs of PE Sepsis induced atrial flutter currently in sinus rhythm on amiodarone, discontinue amiodarone Currently in sinus tachycardia Postop day 1 Continue IV fluids DVT prophylaxis on board Full code Mechanical soft diet consistent carb We will request another speech therapy Lactic acid is normal Sodium and chloride low No leukocytosis Fever subsided Levophed being weaned off Aggressive bowel regimen Opioids Attestations Medical Necessity Statement*: Continue ICU management Coding Level of Care Code 61436 Diagnoses Intertrochanteric fracture of right hip S72.141A Diabetes type 2, uncontrolled E11.65 Glycemic state: with hyperglycemia Temporal lobe epilepsy G40.109 Cerebral palsy G80.9 Cerebral palsy type: unspecified type Seizures R56.9 Diabetes E11.9 Diabetes mellitus complication status: without complication 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
[2022-07-26] MEDS: clindamycin 600 MG/50 ML PREMIX 100 MG IV (06:00)
--- NOTE | 2022-07-26 07:23 | P.PN_ITS ---
Subjective Subjective: POD 1 Patient evaluated in ICU bed 8. Patient denies any hip pain. Vitals/I&O/Wt Last Vital Signs Temp 99.4 F 07/26/22 02:10 Pulse 89 07/26/22 07:00 Resp 19 H 07/26/22 07:00 BP 94/52 07/26/22 07:00 Pulse Ox 98 07/26/22 07:00 O2 Del Method 07/25/22 18:37 O2 Flow Rate 6 07/25/22 18:37 07/25/22 07/26/22 07/26/22 22:59 06:59 14:59 Intake Total 2810.565 / 3910.565 529.73 / 4440.295 36.068 / 36.068 Output Total 1000 / 1260 Balance 2810.565 / 3650.565 -470.27 / 3180.295 36.068 / 36.068 Weight last 48 hrs Weight 126 lb 6 oz Weight 126 lb 9.6 oz Physical Exam Narrative: Patient is alert and good general appearance. Right Hip incision is clean and dry. There is no signs of erythema or drainage no signs of infection. Good motor strength throughout both lower extremities. Fires in all motor groups. Skin is clear warm, feet are warm with good cap refill in all digits. Normal sensation to light touch. Calves are supple, no medial thigh tenderness, negative Homans' sign. No palpable edema peripherally. Urinary Catheter Management: Ocampo: Cath Placed During This Visit: yes Reason for Continuing Indwelling Catheter: Perioperative Use in Selected Surgeries Urinary Catheter Date of Insertion: 07/24/22 Urinary Catheter Time of Insertion: 21:00 Data 07/26/22 01:12 07/26/22 01:12 Micro: Microbiology 07/25/22 18:27 Blood Culture - Preliminary Blood SPECIMEN COLLECTED 07/25/22 18:20 Blood Culture - Preliminary Blood SPECIMEN COLLECTED A&P Assessment and plan (1) Intertrochanteric fracture of right hip: Hip incision is clean and dry free of any signs of infection. Appears to be lung related due to pneumonia or atelectasis. Physical therapy to evaluate and treat with partial weightbearing to right lower extremity. (2) Hospital-acquired pneumonia: Attestations Medical Necessity Statement*: Defer to medical team Coding Level of Care Code Acute Code for [facility] Fwd Diagnoses Intertrochanteric fracture of right hip S72.141A Hospital-acquired pneumonia J18.9; Y95
[2022-07-26 07:49] LABS: Glucose Point of Care 202 mg/dL (70-110)
[2022-07-26] MEDS: insulin lispro 100 unit/1 mL SUBCUT ×2 (07:51→17:21)
[2022-07-26] MEDS: vancomycin 1,000 MG in sodium chloride 0.9% 250 ML 250 MG IV ×2 (07:52→19:30)
[2022-07-26] MEDS: lacosamide 50 mg Tablet 200 MG PO ×2 (08:07→17:17)
[2022-07-26] MEDS: sennosides-docusate Tablet 1 TAB PO (08:08)
[2022-07-26] MEDS: OLANZapine 10 mg TABLET 5 MG PO ×2 (08:08→17:16)
[2022-07-26] MEDS: divalproex DR 250 mg Tablet PO ×2 (09:45→17:15)
[2022-07-26 09:53] LABS: Bilirubin Urine Neg (Negative); Blood Urine Trace (Negative); Glucose Urine UA 1+ (Normal); Ketones Urine 1+ (Negative); Leukocyte Esterase Urine Negative (Negative); Nitrate Urine Negative (Negative); Protein Urine Trace (Negative); Urine Appearance Clear (CLEAR); Urine Color Yellow (Yellow); Urobilinogen Urine Norm (Negative); pH Urine 5 (5-7)
[2022-07-26 09:54] LABS: Add Urine Culture? No; Add Urine Microscopic? YES; Bacteria Urine TRACE /hpf; Mucus Urine TRACE /hpf; RBC Urine 0-4 /hpf (0-2); WBC Urine 0-4 /hpf (0-5)
[2022-07-26 09:55] LABS: Uric Acid Crystals Urine 0-4 /hpf
[2022-07-26 10:56] LABS: Adenovirus Not Detected (NOT DETECT); Chlamydia Pneumoniae Not Detected (NOT DETECT); Coronavirus 229E,HKU1,NL63,OC4 Not Detected (NOT DETECT); Human Metapneumovirus Not Detected (NOT DETECT); Human Rhinovirus/Enterovirus Detected (NOT DETECT); Influenza A Not Detected (NOT DETECT); Influenza A H1 Not Detected (NOT DETECT); Influenza A H1-2009 Not Detected (NOT DETECT); Influenza A H3 Not Detected (NOT DETECT); Influenza B Not Detected (NOT DETECT); Mycoplasma Pneumoniae Not Detected (NOT DETECT); Parainfluenza Virus Type 1 Not Detected (NOT DETECT); Parainfluenza Virus Type 2 Not Detected (NOT DETECT); Parainfluenza Virus Type 3 Not Detected (NOT DETECT); Parainfluenza Virus Type 4 Not Detected (NOT DETECT); Respiratory Syncytial Virus A Not Detected (NOT DETECT); Respiratory Syncytial Virus B Not Detected (NOT DETECT); SARS-COV-2 Not Detected (NOT DETECT)
[2022-07-26 11:07] LABS: Human Metapneumovirus Not Detected (NOT DETECT); Human Rhinovirus/Enterovirus Detected (NOT DETECT); Results from Genmark
[2022-07-26 11:48] LABS: Glucose Point of Care 128 mg/dL (70-110)
[2022-07-26] MEDS: HYDROmorphone 1 mg/mL INJ 1 mL 0.4 MG IVP (15:42)
[2022-07-26 17:22] LABS: Glucose Point of Care 205 mg/dL (70-110)
[2022-07-26] MEDS: enoxaparin 40 mg/0.4 mL Syringe SUBCUT (18:09)
--- NOTE | 2022-07-26 18:54 | PC.NURSE ---
No acute changes this shift. Levo titrated down to 2 mcg. Continue care
[2022-07-26] MEDS: acetaminophen 500 mg Tablet PO (19:29)
[2022-07-26] MEDS: sodium chloride 0.9% 1,000 ML 75 ML IV (19:47)
[2022-07-27] VITALS (261 sets, daily range): BP systolic 83–141; BP diastolic 39–92; PULSE 76–110; RESP 5–41; TEMP 36.6–38.4; O2SAT 87–100
[2022-07-27 00:14] LABS: Glucose Point of Care 165 mg/dL (70-110)
[2022-07-27] MEDS: HYDROmorphone 1 mg/mL INJ 1 mL 0.4 MG IVP ×2 (01:30→14:12)
[2022-07-27] MEDS: acetaminophen 500 mg Tablet PO ×2 (01:30→19:25)
[2022-07-27] MEDS: aztreonam 2,000 MG in sodium chloride 0.9% (plus) 100 ML 200 MG IV ×2 (04:49→17:50)
[2022-07-27 06:43] LABS: Basophils % 0.4 %; Eosinophils # 0.1 10^3/uL (0.0-0.8); Eosinophils % 0.8 %; Lymphocytes # 1.1 10^3/uL (0.8-4.8); Lymphocytes % 15.3 %; Mean Corpuscular Hemoglobin 28.6 pg (28.0-34.0); Mean Corpuscular Volume 86.7 fl (80-94); Mean Platelet Volume 9.9 fL (7.4-10.4); Monocytes # 0.7 10^3/uL (0.2-0.9); Monocytes % 9.3 %; Neutrophils # 5.39 10^3/uL (1.8-7.7); Neutrophils % 73.7 %; Nucleated Red Blood Cells % 0 %; Platelet Count 144 10^3/cmm (130-400); Red Blood Count 2.03 10^6/uL (4.1-5.3); Red Cell Distribution Width 13.9 % (12.1-15.1); White Blood Count 7.3 10^3/uL (4.0-10.0)
[2022-07-27 07:15] LABS: Blood Urea Nitrogen 11 mg/dL (8-23); Carbon Dioxide 29 mmol/L (22-29); Chloride 100 mmol/L (98-107); Glomerular Filtration Rate 136.1 mL/min (90-130); Glucose 132 mg/dL (65-115); Osmolality Calculated 283 mOsm/kg (285-295); Sodium 136 mmol/L (136-145); Vancomycin Trough 10.4 ug/mL (10-15)
[2022-07-27 07:23] LABS: Hematocrit 17.6 % (42.0-52.0); Hemoglobin 5.8 g/dL (11.7-16.6); Slide Review Slide Review Perform
[2022-07-27] MEDS: vancomycin 1,000 MG in sodium chloride 0.9% 250 ML 250 MG IV (08:07)
[2022-07-27 08:14] LABS: Glucose Point of Care 149 mg/dL (70-110)
[2022-07-27] MEDS: insulin lispro 100 unit/1 mL SUBCUT ×3 (08:22→19:25)
[2022-07-27] MEDS: sennosides-docusate Tablet 1 TAB PO (08:22)
[2022-07-27] MEDS: OLANZapine 10 mg TABLET 5 MG PO ×2 (08:22→17:50)
[2022-07-27] MEDS: divalproex DR 250 mg Tablet PO ×2 (08:22→17:49)
[2022-07-27] MEDS: lacosamide 50 mg Tablet 200 MG PO ×2 (08:23→17:49)
[2022-07-27 08:25] LABS: Iron 13 ug/dL (59-158); Percent Saturation 9.6 % (20-50); Total Iron Binding Capacity 135 mcg/dl; Unsaturated Iron Binding 122 ug/dL (112-347)
[2022-07-27 09:01] LABS: Hematocrit 18.2 % (42.0-52.0); Hemoglobin 5.9 g/dL (11.7-16.6)
--- NOTE | 2022-07-27 09:09 | PC.NURSE ---
Education provided to patient family and roll grinder at bedside regarding roll grinder turning off IV pumps. Particular attention to Levophed drip. Verbalized understanding of teachings.
[2022-07-27] MEDS: sodium chloride 0.9% (100 ml) 100 ML (11:05)
--- NOTE | 2022-07-27 11:17 | P.PN_ITS ---
Subjective Subjective: Patient was eating breakfast Hemoglobin of 5.9 No bowel movement yet Requested FOBT We will give 2 unit PRBC Hemoglobin 5.9 hemodynamically stable on Levophed at 6 mics No overnight events Family is at the bedside Currently on 2 L nasal cannula Vitals/I&O/Wt Last Vital Signs Temp 98.6 F 07/27/22 10:48 Pulse 93 07/27/22 10:48 Resp 16 07/27/22 10:48 BP 112/53 07/27/22 10:48 Pulse Ox 100 07/27/22 10:48 O2 Del Method 07/27/22 09:17 O2 Flow Rate 2 07/27/22 09:17 07/26/22 07/27/22 07/27/22 22:59 06:59 14:59 Intake Total 844 / 2130.068 71.374 / 2201.442 1772.626 / 1772.626 Output Total 1400 / 1400 1750 / 3150 Balance -556 / 730.068 -1678.626 / -770.695 0774.626 / 1772.626 Physical Exam Narrative: Patient is able to answer to some of the questions Much more energetic today as compared to yesterday Abdomen soft No active rhonchi or crackles No signs of edema Right hip area dressing does not seem soaked with blood No active significant swelling Bilateral lower extremities are warm no sign of vascular compromise Currently on 2 L Urinary Catheter Management: Ocampo: Cath Placed During This Visit: yes Reason for Continuing Indwelling Catheter: Accurate Measurement of Urinary Output in Critically Ill Patients Urinary Catheter Date of Insertion: 07/24/22 Urinary Catheter Time of Insertion: 21:00 Data 07/27/22 07:58 07/27/22 06:24 Micro: Microbiology 07/25/22 18:27 Blood Culture - Preliminary Blood NEGATIVE TO DATE 07/25/22 18:20 Blood Culture - Preliminary Blood NEGATIVE TO DATE A&P Assessment and plan (1) Hospital-acquired pneumonia: (2) Postoperative sepsis: (3) Intertrochanteric fracture of right hip: (4) Fracture of hip: Qualifiers: Encounter type: initial encounter Fracture type: closed Laterality: right Qualified Code(s): S72.001A - Fracture of unspecified part of neck of right femur, initial encounter for closed fracture (5) Diabetes type 2, uncontrolled: Qualifiers: Glycemic state: with hyperglycemia Qualified Code(s): E11.65 - Type 2 diabetes mellitus with hyperglycemia (6) Establishing care with new doctor, encounter for: (7) Temporal lobe epilepsy: (8) Secondarily generalized seizures: (9) Cerebral palsy: Qualifiers: Cerebral palsy type: unspecified type Qualified Code(s): G80.9 - Cerebral palsy, unspecified (10) Diabetes: Qualifiers: Diabetes mellitus type: type 2 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 use: without equipment operator intermodal yard use Diabetes mellitus complication status: without complication Qualified Code(s): E11.9 - Type 2 diabetes mellitus without complications (11) Acute on chronic anemia: (12) Iron deficiency anemia: Plan Acute on chronic normocytic anemia Check FOBT Severe iron deficiency anemia We will give 2 unit PRBC start iron supplements Hospital-acquired pneumonia De-escalate antibiotics by tomorrow if cultures remain negative and he remains afebrile Sepsis postoperative: Septic shock: Patient still requiring Levophed which could be secondary to drop in hemoglobin as well Wean off Levophed Hip fracture status post surgical intervention Constipation continue bowel regimen Check FOBT DVT prophylaxis with Lovenox Seizure, anxiety/continue anxiolytics and antipsychotics Continue Vimpat and Depakote DisContinue IV fluids, patient tolerating his soft mechanical diet Most likely he will need rehab at a detention, he still has to work with physical therapy, Attestations Medical Necessity Statement*: Can be transferred to [facility] once we are able to turn off the Levophed Coding Level of Care Code 32320 Diagnoses Hospital-acquired pneumonia J18.9; Y95 Postoperative sepsis T81.44XA Intertrochanteric fracture of right hip S72.141A Fracture of hip S72.001A Encounter type: initial encounter Fracture type: closed Laterality: right Diabetes type 2, uncontrolled E11.65 Glycemic state: with hyperglycemia Establishing care with new doctor, encounter for Z76.89 Temporal lobe epilepsy G40.109 Secondarily generalized seizures Cerebral palsy G80.9 Cerebral palsy type: unspecified type Diabetes E11.9 Diabetes mellitus type: type 2 Diabetes mellitus assisted insulin use: without equipment operator intermodal yard use Diabetes mellitus complication status: without complication Acute on chronic anemia D64.9 Iron deficiency anemia D50.9
[2022-07-27 12:11] LABS: Glucose Point of Care 201 mg/dL (70-110)
--- NOTE | 2022-07-27 14:21 | PC.SOCIAL ---
IMM UPDATED IMM initialed and dated, copy placed in chart and given to patient
--- NOTE | 2022-07-27 15:04 | PM.PN ---
Subjective Subjective: POD 2 Pt resting comfortably. Denies Hip Pain Vitals/I&O/Wt Last Vital Signs Temp 98.7 F 07/27/22 13:48 Pulse 93 07/27/22 13:48 Resp 14 07/27/22 14:12 BP 112/61 07/27/22 13:48 Pulse Ox 96 07/27/22 14:12 O2 Del Method 07/27/22 13:00 O2 Flow Rate 2 07/27/22 09:17 07/27/22 07/27/22 07/27/22 06:59 14:59 22:59 Intake Total 71.374 / 2201.442 2116.626 / 2116.626 Output Total 1750 / 3150 1350 / 1350 Balance -1678.626 / -948.558 766.626 / 766.626 Physical Exam Narrative: Patient is alert and good general appearance.? Right Hip incision is clean and dry.? ? There is no signs of erythema or drainage no signs of infection.? Good motor strength throughout both lower extremities.? Fires in all motor groups.? Skin is clear warm, feet are warm with good cap refill in all digits.? Normal sensation to light touch.? Calves are supple,? no medial thigh tenderness, negative Homans' sign.? No palpable edema peripherally Urinary Catheter Management: Ocampo: Cath Placed During This Visit: yes Reason for Continuing Indwelling Catheter: Accurate Measurement of Urinary Output in Critically Ill Patients Urinary Catheter Date of Insertion: 07/24/22 Urinary Catheter Time of Insertion: 21:00 Data 07/27/22 07:58 07/27/22 06:24 Micro: Microbiology 07/25/22 18:27 Blood Culture - Preliminary Blood NEGATIVE TO DATE 07/25/22 18:20 Blood Culture - Preliminary Blood NEGATIVE TO DATE A&P Assessment and plan (1) Intertrochanteric fracture of right hip: Physical Therapy to Eval. Drsg Change Right Hip. RTC in 2 wks for staple removal. Attestations Medical Necessity Statement*: defer to medical team Coding Level of Care Code Acute Code for Chg Fwd Diagnoses Intertrochanteric fracture of right hip S72.141A
[2022-07-27] MEDS: vancomycin 750 MG in sodium chloride 0.9% 250 ML 250 MG IV ×2 (16:29→23:36)
[2022-07-27 16:54] LABS: Hemoglobin 7.1 g/dL (11.7-16.6)
[2022-07-27 17:07] LABS: Glucose Point of Care 156 mg/dL (70-110)
[2022-07-27] MEDS: FUROsemide 10 mg/mL SDV 2mL 20 MG IVP (17:20)
[2022-07-27] MEDS: sodium chloride 0.9% (100 ml) 100 ML 10 ML (17:30)
[2022-07-27] MEDS: ondansetron 2 mg/ML SDV 2 mL 4 MG IVP (17:47)
--- NOTE | 2022-07-27 18:45 | XRR_ITS ---
PROCEDURE INFORMATION: Exam: XR Chest Exam date and time: 07/27/2022 7:36 PM Age: 62 years old Clinical indication: Fever and other: Increased oxygen; Additional info: Increased oxygen demand and increased temperature TECHNIQUE: Imaging protocol: Radiologic exam of the chest. Views: 1 view. COMPARISON: CR XR chest 1V portable [id number] 07/25/2022 3:17 PM FINDINGS: Tubes, catheters and devices: EKG monitoring leads overlie the thoracic wall. Lungs: There are bibasilar atelectatic changes. There is right lower lobe subsegmental consolidation, worse than on the comparison study. Pleural spaces: No pleural effusion or pneumothorax. Heart/Mediastinum: Normal in size. Bones/joints: No acute fracture is identified. XR/XR chest 1V portable [id number] IMPRESSION: Worsening right lower lobe subsegmental consolidation that may be secondary to atelectasis or in the appropriate clinical setting, pneumonia.
[2022-07-27] MEDS: diphenhydrAMINE 50 mg/mL SDV 1mL 25 MG IVP (18:52)
[2022-07-27] MEDS: dexamethasone 10 mg/mL INJ IVP (18:53)
[2022-07-27] MEDS: enoxaparin 40 mg/0.4 mL Syringe SUBCUT (18:54)
--- NOTE | 2022-07-27 20:04 | PC.NURSE ---
Patient receiving second unit of blood, See TAR for administration documentation. At approximately 1840 patient temperature resulted 101.1. Blood infusion stopped and flushed, Dr. Severino notified and orders received to stop infusion, administer Benadryl, decadron, and obtain a chest x ray. See MAR for administration. Temperature checked again after administration of medications and temperature resulted 101.2. Patient provided with a fan and Tylenol. See MAR. Patient denies any symptoms or discomfort. Charge nurse notified, lab notified, electronic controls repairer supervisor contacted for further assistance with protocol. Protocol followed for potential transfusion reaction. See documentation in TAR.
[2022-07-27] MEDS: HYDROcodone-acetaminophen 5-325 mg Tablet PO (21:08)
[2022-07-27 21:40] LABS: Add Urine Microscopic? NO; Charge for UA Resulting for Rev
[2022-07-27 21:49] LABS: Bilirubin Urine Neg (Negative); Blood Urine Neg (Negative); Glucose Urine UA 2+ (Normal); Ketones Urine 1+ (Negative); Leukocyte Esterase Urine Negative (Negative); Nitrate Urine Negative (Negative); Protein Urine Neg (Negative); Urine Appearance Clear (CLEAR); Urine Color Yellow (Yellow); Urobilinogen Urine Norm (Negative); pH Urine 5 (5-7)
[2022-07-27 22:00] LABS: Glucose Point of Care 272 mg/dL (70-110)
[2022-07-27] MEDS: ALPRAZolam 0.5 mg Tablet 1 MG PO (23:34)
[2022-07-28] VITALS (26 sets, daily range): BP systolic 98–112; BP diastolic 48–67; PULSE 69–100; RESP 7–26; TEMP 36.4–37.3; O2SAT 90–97
[2022-07-28 03:33] LABS: Basophils % 0.2 %; Hemoglobin 6.8 g/dL (11.7-16.6); Lymphocytes # 0.3 10^3/uL (0.8-4.8); Lymphocytes % 5.9 %; Mean Corpuscular HGB Conc 33.8 g/dL (30.0-36.0); Mean Corpuscular Hemoglobin 28.8 pg (28.0-34.0); Mean Corpuscular Volume 85.2 fl (80-94); Mean Platelet Volume 10.1 fL (7.4-10.4); Monocytes # 0.1 10^3/uL (0.2-0.9); Monocytes % 2.6 %; Neutrophils # 4.97 10^3/uL (1.8-7.7); Neutrophils % 90.8 %; Nucleated Red Blood Cells % 0 %; Platelet Count 161 10^3/cmm (130-400); Red Blood Count 2.36 10^6/uL (4.1-5.3); Red Cell Distribution Width 14.2 % (12.1-15.1); White Blood Count 5.5 10^3/uL (4.0-10.0)
[2022-07-28 04:01] LABS: Hematocrit 20.1 % (42.0-52.0)
[2022-07-28 04:07] LABS: Slide Review Slide Review Perform
[2022-07-28] MEDS: aztreonam 2,000 MG in sodium chloride 0.9% (plus) 100 ML 200 MG IV ×2 (05:27→21:44)
[2022-07-28 06:23] LABS: Glucose Point of Care 256 mg/dL (70-110)
[2022-07-28 08:32] LABS: Bilirubin Indirect 0; Ferritin 300 ng/mL (30-400); Lactate Dehydrogenase 179 U/L (135-225); Total Bilirubin 0.2 mg/dL (0.15-1.2)
[2022-07-28] MEDS: insulin lispro 100 unit/1 mL SUBCUT ×3 (09:31→21:43)
[2022-07-28] MEDS: vancomycin 750 MG in sodium chloride 0.9% 250 ML 250 MG IV ×2 (09:32→18:11)
--- NOTE | 2022-07-28 09:40 | PC.NURSE ---
New Orders Received Patient sister reported patient was coughing and turning red upon eating breakfast, informed Dr. Severino who gave orders for speech path eval. Patient made NPO and morning medications held at this time.
[2022-07-28 12:10] LABS: Glucose Point of Care 210 mg/dL (70-110)
--- NOTE | 2022-07-28 16:00 | PC.NURSE ---
Transfer Note Patient transferred to [facility] from ICU via bed. Handoff report given to RYAN Taveras. Patient oriented to environment and equipment. Covering service notified. Orders reviewed and will continue to monitor. Patient caregiver/sister at bedside upon transfer. All patient belongings transferred with patient and placed at bedside.
--- NOTE | 2022-07-28 16:43 | PM.PN ---
Subjective Subjective: Patient will need another speech therapy session right lower lobe pneumonia worsening Febrile events noted He also experienced transfusion related fever and received Decadron and Benadryl yesterday Had to stop his blood transfusion Request another unit of PRBC today We will request autoimmune hemolytic anemia work-up Inadequate response to blood transfusion Check FOBT Iron deficiency anemia anemia Off Levophed Can be transferred to [facility] Tolerating his diet Vitals/I&O/Wt Last Vital Signs Temp 98.6 F 07/28/22 14:59 Pulse 77 07/28/22 15:00 Resp 18 07/28/22 15:00 BP 111/59 07/28/22 15:00 Pulse Ox 95 07/28/22 15:00 O2 Del Method 07/28/22 10:05 O2 Flow Rate 2 07/28/22 10:05 07/28/22 07/28/22 07/28/22 06:59 14:59 22:59 Intake Total 370 / 3716.626 450 / 450 Output Total 780 / 3650 Balance -410 / 66.626 450 / 450 Physical Exam Narrative: Awake and alert Euvolemic Mild rhonchi at the base of the lungs Hemodynamically stable Currently on 3 L Abdomen soft Surgical site without any active oozing or drainage right hip. Dressing without any signs of drainage Lower extremity no swelling No sign of vascular compromise Patient does respond to my questions appropriately Caregiver is at the bedside Able to move his extremities Urinary Catheter Management: Ocampo: Cath Placed During This Visit: yes Reason for Continuing Indwelling Catheter: Accurate Measurement of Urinary Output in Critically Ill Patients Urinary Catheter Date of Insertion: 07/24/22 Urinary Catheter Time of Insertion: 21:00 Data 07/28/22 02:51 07/27/22 06:24 A&P Assessment and plan (1) Iron deficiency anemia: (2) Acute on chronic anemia: (3) Hospital-acquired pneumonia: (4) Postoperative sepsis: (5) Intertrochanteric fracture of right hip: (6) Diabetes type 2, uncontrolled: Qualifiers: Glycemic state: with hyperglycemia Qualified Code(s): E11.65 - Type 2 diabetes mellitus with hyperglycemia (7) Temporal lobe epilepsy: (8) Secondarily generalized seizures: (9) Diabetes: Qualifiers: Diabetes mellitus type: type 2 Diabetes mellitus fpc insulin use: without fpc use Diabetes mellitus complication status: without complication Qualified Code(s): E11.9 - Type 2 diabetes mellitus without complications (10) Cerebral palsy: Qualifiers: Cerebral palsy type: unspecified type Qualified Code(s): G80.9 - Cerebral palsy, unspecified Plan 62 male who presented to the hospital from senior living after sustaining a fall while he was changing his pants when he soiled himself it was a witnessed fall, he was diagnosed with hip fracture s/p surgical intervention developed postoperative sepsis related to aspiration pneumonia/hospital-acquired pneumonia Sepsis related to aspiration pneumonia/hospital-acquired pneumonia Continue broad-spectrum antibiotics Continue speech therapy on daily basis Patient at risk of chronic aspiration Acute on chronic anemia Iron-deficiency anemia Received 1 bag of PRBC when he started spiking fever he was given Decadron and Benadryl, blood transfusion related fever, check for signs of hemolytic anemia Check FOBT Continue iron supplements Hip fracture status post intervention Patient to work with PT he was not able to work with them because he was requiring Levophed, he is able to get out of bed to chair Disposition plan: He will improve to go back to his senior living he mostly will need rehab/placement Dysphagia diet Appreciate speech therapy recommendations History of epilepsy/seizure continue Depakote and Vimpat Constipation: Continue bowel regimen Full code Caregiver updated who is at the bedside Transfusion related reaction: Febrile event received Benadryl and Decadron We will give another unit of blood today Low hemoglobin Rule out hemolytic anemia Attestations Medical Necessity Statement*: Awaiting transfer to rehab Coding Level of Care Code 84735 Diagnoses Iron deficiency anemia D50.9 Acute on chronic anemia D64.9 Hospital-acquired pneumonia J18.9; Y95 Postoperative sepsis T81.44XA Intertrochanteric fracture of right hip S72.141A Diabetes type 2, uncontrolled E11.65 Glycemic state: with hyperglycemia Temporal lobe epilepsy G40.109 Secondarily generalized seizures Diabetes E11.9 Diabetes mellitus type: type 2 Diabetes mellitus fpc insulin use: without fpc use Diabetes mellitus complication status: without complication Cerebral palsy G80.9 Cerebral palsy type: unspecified type
[2022-07-28 16:46] LABS: Glucose Point of Care 166 mg/dL (70-110)
[2022-07-28 20:35] LABS: Hematocrit 23.8 % (42.0-52.0); Hemoglobin 7.8 g/dL (11.7-16.6)
--- NOTE | 2022-07-28 20:47 | PC.NURSE ---
Patient is currently NPO until speech eval in morning. Dr Brunson was notified that patient has Depakote, vimpat, and zyprexa due. Dr Brunson instructed nurse to hold evening dose of all meds. Evening dose of meds will be held. Bed rails have been padded, suction has been set up, and oxygen is available in room. Sister also informed nurse that he came into the emergency department on May 24 for a grand mal seizure and his blood sugar had bottomed out . Patient resting in bed, two side rails up, bed alarm set and call light within reach at this time. Sister/guardian present at bedside.
--- NOTE | 2022-07-28 20:57 | PC.NURSE ---
Sister/guardian requested medication for anxiety/restlessness. Dr Brunson was informed of request. Nurse was instructed by Dr Brunson to give Geodon 5mg IM.
[2022-07-28 21:03] LABS: Glucose Point of Care 175 mg/dL (70-110)
[2022-07-28] MEDS: ziprasidone 20 mg/mL SDV 5 MG IM (21:42)
[2022-07-28] MEDS: enoxaparin 40 mg/0.4 mL Syringe SUBCUT (21:43)
--- NOTE | 2022-07-28 21:51 | PC.NURSE ---
Patient given Geodon IM in left vastus lateralis
[2022-07-29] VITALS (10 sets, daily range): BP systolic 102–116; BP diastolic 62–74; PULSE 63–88; RESP 16–18; TEMP 36.4–37.3; O2SAT 90–98
[2022-07-29] MEDS: vancomycin 750 MG in sodium chloride 0.9% 250 ML 250 MG IV ×4 (01:33→23:15)
[2022-07-29] MEDS: aztreonam 2,000 MG in sodium chloride 0.9% (plus) 100 ML 200 MG IV ×2 (05:39→17:47)
[2022-07-29 06:36] LABS: Glucose Point of Care 121 mg/dL (70-110)
[2022-07-29 07:24] LABS: Basophils % 0.3 %; Eosinophils % 0.5 %; Hematocrit 24.9 % (42.0-52.0); Hemoglobin 8.2 g/dL (11.7-16.6); Lymphocytes # 1.1 10^3/uL (0.8-4.8); Lymphocytes % 18.1 %; Mean Corpuscular HGB Conc 32.9 g/dL (30.0-36.0); Mean Corpuscular Hemoglobin 28.3 pg (28.0-34.0); Mean Corpuscular Volume 85.9 fl (80-94); Mean Platelet Volume 9.4 fL (7.4-10.4); Monocytes # 0.6 10^3/uL (0.2-0.9); Monocytes % 8.9 %; Neutrophils # 4.43 10^3/uL (1.8-7.7); Neutrophils % 70.8 %; Nucleated Red Blood Cells % 0 %; Platelet Count 202 10^3/cmm (130-400); Red Cell Distribution Width 14.4 % (12.1-15.1); White Blood Count 6.3 10^3/uL (4.0-10.0)
[2022-07-29 07:44] LABS: Anion Gap 9.8 (5-19); Blood Urea Nitrogen 23 mg/dL (8-23); Calcium 8.5 mg/dL (8.5-10.5); Carbon Dioxide 29 mmol/L (22-29); Chloride 102 mmol/L (98-107); Glomerular Filtration Rate 136.1 mL/min (90-130); Glucose 123 mg/dL (65-115); Lactate Dehydrogenase 197 U/L (135-225); Osmolality Calculated 289 mOsm/kg (285-295); Potassium 3.8 mmol/L (3.5-5.1); Sodium 137 mmol/L (136-145); Vancomycin Trough 15.6 ug/mL (10-15)
[2022-07-29 08:02] LABS: Vitamin B12 978 pg/mL (232-1245)
--- NOTE | 2022-07-29 10:09 | PC.SOCIAL ---
IMM update IMM updated with Adrienne Acosta (Guardian). Verbalized an understanding. Copy Pg 2 provided. Initialled, dated, timed, and placed in chart.
[2022-07-29] MEDS: lacosamide 50 mg Tablet 200 MG PO (10:58)
[2022-07-29] MEDS: sucralfate 1 gm Tablet PO ×2 (10:59→21:36)
[2022-07-29] MEDS: divalproex DR 250 mg Tablet PO ×2 (10:59→17:49)
[2022-07-29] MEDS: pantoprazole 40 mg SDV IVP ×2 (11:00→21:36)
[2022-07-29] MEDS: OLANZapine 5 mg TABLET PO ×2 (11:00→17:53)
[2022-07-29 11:56] LABS: Glucose Point of Care 146 mg/dL (70-110)
[2022-07-29] MEDS: insulin lispro 100 unit/1 mL SUBCUT (12:26)
[2022-07-29] MEDS: aspirin 81 mg EC Tablet PO (12:26)
--- NOTE | 2022-07-29 16:09 | P.PN_ITS ---
Subjective Subjective: Patient was seen this morning, patient's mother is at bedside, he is alert to person, not to place, not to time, this is his baseline, but he is very happy, he smiles at me, tells me that he wants to get out of bed patient's mom is at bedside, she e tells me that before all this he he would ambulate on his own, he is very motivated, he keeps trying to get up out of bed, I had extensive discussion with patient's mother about his hospitalization, currently concern for acute anemia concerning for slow GI bleed, right now hemoglobin stable status posttransfusion, however will did not have to hold anticoagulation due to concerns for worsening bleed, however this presents a problem given his for hip fracture and relative immobility I certainly think aspirin 81 mg would help with DVT prophylaxis but is not as good as anticoagulation, but I do not think he could tolerate it at this time, there is certainly a risk of DVT, plan is to continue mobilization, SCDs, aspirin 81, monitor hemoglobin she voiced understanding all questions answered agreed to proceed, in addition I spoke to orthopedic service agreed with plan for anticoagulation Vitals/I&O/Wt Last Vital Signs Temp 97.8 F 07/29/22 12:00 Pulse 75 07/29/22 14:00 Resp 18 07/29/22 12:00 BP 106/62 07/29/22 12:00 Pulse Ox 94 07/29/22 08:38 O2 Del Method 07/29/22 08:38 O2 Flow Rate 2 07/28/22 10:05 07/29/22 07/29/22 07/29/22 06:59 14:59 22:59 Intake Total 450 / 1500 730 / 730 Output Total 450 / 450 Balance 0 / 1050 730 / 730 Physical Exam Const: COMMON NORMALS: no acute distress ORIENTATION/CONSCIOUSNESS: Yes awake and Yes oriented to person; not oriented to place and not oriented to time Resp: COMMON NORMALS: normal respiratory effort, No retractions, No use of accessory muscles and clear to auscultation bilaterally AUSCULTATION: clear to auscultation bilaterally Cardio: COMMON NORMALS: regular rate, regular rhythm, S1 normal heart sound present and S2 normal heart sound present RATE: regular rate RHYTHM: regular rhythm HEART SOUNDS: S1 normal heart sound present and S2 normal heart sound present GI: COMMON NORMALS: Normal to inspection, nondistended, normoactive bowel sounds present, non-tender and no masses Extremity: COMMON NORMALS: no pedal edema Neuro: SENSORIUM/ORIENTATION: Yes oriented to person, No oriented to place and No oriented to time Psych: COMMON NORMALS: mental status grossly normal Urinary Catheter Management: Ocampo: Cath Placed During This Visit: yes Reason for Continuing Indwelling Catheter: Other Urinary Catheter Date of Insertion: 07/24/22 Urinary Catheter Time of Insertion: 21:00 Data 07/29/22 07:15 07/29/22 07:15 Micro: Microbiology 07/28/22 16:15 Occult Blood (FIT) - Final Stool - Stool Aspirate A&P Assessment and plan (1) Iron deficiency anemia: (2) Acute on chronic anemia: (3) Hospital-acquired pneumonia: (4) Postoperative sepsis: (5) Intertrochanteric fracture of right hip: (6) Diabetes type 2, uncontrolled: Qualifiers: Glycemic state: with hyperglycemia Qualified Code(s): E11.65 - Type 2 diabetes mellitus with hyperglycemia (7) Temporal lobe epilepsy: (8) Secondarily generalized seizures: (9) Diabetes: Qualifiers: Diabetes mellitus type: type 2 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 use: without group home use Diabetes mellitus complication status: without complication Qualified Code(s): E11.9 - Type 2 diabetes mellitus without complications (10) Cerebral palsy: Qualifiers: Cerebral palsy type: unspecified type Qualified Code(s): G80.9 - Cerebral palsy, unspecified (11) GI bleed: Plan 62 male who presented to the hospital from [place] [facility] after sustaining a fall while he was changing his pants when he soiled himself it was a witnessed fall, he was diagnosed with hip fracture s/p surgical intervention developed postoperative sepsis related to aspiration pneumonia/hospital-acquired pneumonia Slow GI bleed -With evidence of iron deficiency anemia -Status post 2 unit PRBC status -We will give IV Venofer here in the hospital, 1 dose today -With Hemoccult positive stools -Was on anticoagulation, for DVT prophylaxis, currently discontinued -Protonix, Carafate -Monitor hemoglobin Sepsis related to aspiration pneumonia/hospital-acquired pneumonia Continue aztreonam, vancomycin, de-escalate after he is fever free for 48 hours Cultures so far negative Continue speech therapy on daily basis Patient at risk of chronic aspiration Acute on chronic anemia Iron-deficiency anemia Received 1 bag of PRBC when he started spiking fever he was given Decadron and Benadryl, blood transfusion related Hip fracture status post intervention PT OT Aspirin for DVT prophylaxis Disposition plan: Likely will require [facility]ci placement for rehab Dysphagia diet Appreciate speech therapy recommendations History of epilepsy/seizure continue Depakote and Vimpat and lorazepam Continue home paroxetine Continue home Zyprexa 5 twice daily Constipation: Continue bowel regimen Full code Caregiver updated who is at the bedside History of transfusion reaction, monitor Attestations Medical Necessity Statement*: Plan for today monitor hemoglobin, 1 dose IV Venofer, monitor respiratory status patient requires hospitalization for slow GI bleed, sepsis related to aspiration pneumonia, acute on chronic anemia, hip fracture Diagnoses Iron deficiency anemia D50.9 Acute on chronic anemia D64.9 Hospital-acquired pneumonia J18.9; Y95 Postoperative sepsis T81.44XA Intertrochanteric fracture of right hip S72.141A Diabetes type 2, uncontrolled E11.65 Glycemic state: with hyperglycemia Temporal lobe epilepsy G40.109 Secondarily generalized seizures Diabetes E11.9 Diabetes mellitus type: type 2 Diabetes mellitus group home insulin use: without group home use Diabetes mellitus complication status: without complication Cerebral palsy G80.9 Cerebral palsy type: unspecified type GI bleed K92.2
[2022-07-29] MEDS: iron sucrose 200 MG in sodium chloride 0.9% (100 ml) 100 ML 220 MG IV (16:41)
[2022-07-29 17:56] LABS: Glucose Point of Care 124 mg/dL (70-110)
[2022-07-29] MEDS: trazodone 50 mg Tablet 25 MG PO (21:36)
[2022-07-30] VITALS (10 sets, daily range): BP systolic 101–124; BP diastolic 53–69; PULSE 70–90; RESP 15–20; TEMP 36.6–37.6; O2SAT 90–97
[2022-07-30 05:23] LABS: Hematocrit 24.2 % (42.0-52.0); Mean Corpuscular HGB Conc 33.1 g/dL (30.0-36.0); Mean Corpuscular Volume 87.7 fl (80-94); Mean Platelet Volume 9.6 fL (7.4-10.4); Platelet Count 333 10^3/cmm (130-400); Red Blood Count 2.76 10^6/uL (4.1-5.3); Red Cell Distribution Width 14.5 % (12.1-15.1); White Blood Count 7.4 10^3/uL (4.0-10.0)
[2022-07-30 05:45] LABS: Anion Gap 10.5 (5-19); Blood Urea Nitrogen 14 mg/dL (8-23); Carbon Dioxide 25 mmol/L (22-29); Chloride 100 mmol/L (98-107); Glomerular Filtration Rate 136.1 mL/min (90-130); Glucose 148 mg/dL (65-115); Osmolality Calculated 277 mOsm/kg (285-295); Potassium 3.5 mmol/L (3.5-5.1); Sodium 132 mmol/L (136-145)
[2022-07-30] MEDS: aztreonam 2,000 MG in sodium chloride 0.9% (plus) 100 ML 200 MG IV (05:51)
[2022-07-30 06:30] LABS: Slide Review Slide Review Perform
[2022-07-30 06:34] LABS: Absolute Segmented Neutrophil 4.3 10/cmm (1.6-7.1); Band Neutrophils Absolute 0.5 10^3/cmm (0.0-1.2); Basophils Absolute 0.1 10^3/cmm (0.0-0.2); Eosinophils 1 %; Lymphocytes 18 %; Lymphocytes Absolute 1.5 10^3/cmm (1.2-3.4); Monocytes Absolute 0.8 10^3/cmm (0.1-0.6); Segmented Neutrophils 58 %; Total Cells Counted 100 (0-100)
[2022-07-30 06:35] LABS: Absolute Neutrophil 4.8 10^3/cmm (1.4-6.5); Anisocytosis 1+; Macrocytosis Trace; Platelet Estimate Normal (Normal)
[2022-07-30] MEDS: vancomycin 750 MG in sodium chloride 0.9% 250 ML 250 MG IV (10:19)
[2022-07-30] MEDS: lacosamide 50 mg Tablet 200 MG PO ×2 (10:28→22:17)
[2022-07-30] MEDS: OLANZapine 5 mg TABLET PO ×2 (10:29→18:52)
[2022-07-30] MEDS: sucralfate 1 gm Tablet PO ×2 (10:29→22:17)
[2022-07-30] MEDS: divalproex DR 250 mg Tablet PO ×2 (10:29→18:55)
[2022-07-30] MEDS: aspirin 81 mg EC Tablet PO (10:30)
[2022-07-30] MEDS: sennosides-docusate Tablet 1 TAB PO (10:33)
[2022-07-30] MEDS: PARoxetine 20 mg Tablet 30 MG PO (10:33)
[2022-07-30] MEDS: pantoprazole 40 mg SDV IVP ×2 (10:36→22:17)
[2022-07-30 11:19] LABS: Glucose Point of Care 175 mg/dL (70-110)
[2022-07-30] MEDS: insulin lispro 100 unit/1 mL SUBCUT ×2 (13:06→18:50)
--- NOTE | 2022-07-30 14:07 | P.PN_ITS ---
Subjective Subjective: Patient was seen this morning, nursing staff at bedside, no acute issues overnight, he is happy, smiling, he has 2 pictures in his hands of his mom's grandmother, denies any chest pain, no shortness of breath Vitals/I&O/Wt Last Vital Signs Temp 97.8 F 07/30/22 12:00 Pulse 70 07/30/22 12:00 Resp 15 07/30/22 12:00 BP 112/69 07/30/22 12:00 Pulse Ox 95 07/30/22 12:00 O2 Del Method 07/30/22 12:00 O2 Flow Rate 2 07/28/22 10:05 07/29/22 07/30/22 07/30/22 22:59 06:59 14:59 Intake Total 1440 / 2170 350 / 2520 360 / 360 Output Total 500 / 500 Balance 1440 / 2170 -150 / 2020 360 / 360 Physical Exam Const: COMMON NORMALS: no acute distress ORIENTATION/CONSCIOUSNESS: Yes awake and Yes oriented to person; not oriented to place and not oriented to time Resp: COMMON NORMALS: normal respiratory effort, No retractions, No use of accessory muscles and clear to auscultation bilaterally AUSCULTATION: clear to auscultation bilaterally Cardio: COMMON NORMALS: regular rate, regular rhythm, S1 normal heart sound present and S2 normal heart sound present RATE: regular rate RHYTHM: regular rhythm HEART SOUNDS: S1 normal heart sound present and S2 normal heart sound present GI: COMMON NORMALS: Normal to inspection, nondistended, normoactive bowel sounds present and non-tender Extremity: COMMON NORMALS: no pedal edema Neuro: SENSORIUM/ORIENTATION: Yes oriented to person, No oriented to place and No oriented to time Urinary Catheter Management: Ocampo: Cath Placed During This Visit: yes Reason for Continuing Indwelling Catheter: Other Urinary Catheter Date of Insertion: 07/24/22 Urinary Catheter Time of Insertion: 21:00 Data 07/30/22 04:53 07/30/22 04:53 A&P Assessment and plan (1) Iron deficiency anemia: (2) Acute on chronic anemia: (3) Hospital-acquired pneumonia: (4) Postoperative sepsis: (5) Intertrochanteric fracture of right hip: (6) Diabetes type 2, uncontrolled: Qualifiers: Glycemic state: with hyperglycemia Qualified Code(s): E11.65 - Type 2 diabetes mellitus with hyperglycemia (7) Temporal lobe epilepsy: (8) Secondarily generalized seizures: (9) Diabetes: Qualifiers: Diabetes mellitus type: type 2 Diabetes mellitus care home insulin use: without care home use Diabetes mellitus complication status: without complication Qualified Code(s): E11.9 - Type 2 diabetes mellitus without complications (10) Cerebral palsy: Qualifiers: Cerebral palsy type: unspecified type Qualified Code(s): G80.9 - Cerebral palsy, unspecified (11) GI bleed: Plan 62 male who presented to the hospital from long term after sustaining a fall while he was changing his pants when he soiled himself it was a witnessed fall, he was diagnosed with hip fracture s/p surgical intervention developed postoperative sepsis related to aspiration pneumonia/hospital-acquired pneumonia Slow GI bleed, hemoglobin 8.0, hemodynamic stable -With evidence of iron deficiency anemia -Status post 2 unit PRBC status -We will give IV Venofer here in the hospital, 1 dose today -With Hemoccult positive stools -Was on anticoagulation, for DVT prophylaxis, currently discontinued -Protonix, Carafate -Monitor hemoglobin Sepsis related to aspiration pneumonia/hospital-acquired pneumonia De-escalate antibiotics to doxycycline Cultures so far negative Continue speech therapy on daily basis Patient at risk of chronic aspiration Acute on chronic anemia Iron-deficiency anemia Received 1 bag of PRBC when he started spiking fever he was given Decadron and Benadryl, blood transfusion related Hip fracture status post intervention PT OT Aspirin for DVT prophylaxis Disposition plan: Likely will require custodial placement for rehab Dysphagia diet Appreciate speech therapy recommendations History of epilepsy/seizure continue Depakote and Vimpat and lorazepam Continue home paroxetine Continue home Zyprexa 5 twice daily Constipation: Continue bowel regimen Full code Caregiver updated who is at the bedside History of transfusion reaction, monitor Attestations Medical Necessity Statement*: Patient requires hospitalization due to concerns for slow GI bleed, sepsis, pneumonia, hip fracture Diagnoses Iron deficiency anemia D50.9 Acute on chronic anemia D64.9 Hospital-acquired pneumonia J18.9; Y95 Postoperative sepsis T81.44XA Intertrochanteric fracture of right hip S72.141A Diabetes type 2, uncontrolled E11.65 Glycemic state: with hyperglycemia Temporal lobe epilepsy G40.109 Secondarily generalized seizures Diabetes E11.9 Diabetes mellitus type: type 2 Diabetes mellitus terminologist insulin use: without care home use Diabetes mellitus complication status: without complication Cerebral palsy G80.9 Cerebral palsy type: unspecified type GI bleed K92.2
[2022-07-30 17:12] LABS: Glucose Point of Care 175 mg/dL (70-110)
[2022-07-30] MEDS: doxycycline 100 mg Tablet PO (18:52)
[2022-07-30] MEDS: trazodone 50 mg Tablet 25 MG PO (22:17)
[2022-07-31] VITALS (10 sets, daily range): BP systolic 93–125; BP diastolic 45–67; PULSE 78–93; RESP 16–22; TEMP 36.7–37.8; O2SAT 89–95
[2022-07-31 05:39] LABS: Basophils % 0.5 %; Eosinophils # 0.3 10^3/uL (0.0-0.8); Eosinophils % 4.2 %; Hematocrit 26.7 % (42.0-52.0); Hemoglobin 8.5 g/dL (11.7-16.6); Lymphocytes # 1.2 10^3/uL (0.8-4.8); Lymphocytes % 15.8 %; Mean Corpuscular HGB Conc 31.8 g/dL (30.0-36.0); Mean Corpuscular Hemoglobin 28.2 pg (28.0-34.0); Mean Corpuscular Volume 88.7 fl (80-94); Mean Platelet Volume 9.1 fL (7.4-10.4); Monocytes # 0.8 10^3/uL (0.2-0.9); Monocytes % 10.3 %; Neutrophils # 4.47 10^3/uL (1.8-7.7); Neutrophils % 60.1 %; Nucleated Red Blood Cells % 0 %; Platelet Count 363 10^3/cmm (130-400); Red Blood Count 3.01 10^6/uL (4.1-5.3); Red Cell Distribution Width 14.6 % (12.1-15.1); White Blood Count 7.5 10^3/uL (4.0-10.0)
[2022-07-31 05:53] LABS: Anion Gap 10.8 (5-19); Blood Urea Nitrogen 12 mg/dL (8-23); Calcium 8.1 mg/dL (8.5-10.5); Carbon Dioxide 25 mmol/L (22-29); Chloride 101 mmol/L (98-107); Glomerular Filtration Rate 167.9 mL/min (90-130); Glucose 167 mg/dL (65-115); Osmolality Calculated 280 mOsm/kg (285-295); Potassium 3.8 mmol/L (3.5-5.1); Sodium 133 mmol/L (136-145)
[2022-07-31 06:46] LABS: Slide Review Slide Review Perform
[2022-07-31 09:04] LABS: Glucose Point of Care 167 mg/dL (70-110)
[2022-07-31] MEDS: sennosides-docusate Tablet 1 TAB PO (10:17)
[2022-07-31] MEDS: aspirin 81 mg EC Tablet PO (10:18)
[2022-07-31] MEDS: OLANZapine 5 mg TABLET PO ×2 (10:18→17:47)
[2022-07-31] MEDS: doxycycline 100 mg Tablet PO ×2 (10:19→17:47)
[2022-07-31] MEDS: PARoxetine 20 mg Tablet 30 MG PO (10:19)
[2022-07-31] MEDS: lacosamide 50 mg Tablet 200 MG PO ×2 (11:07→20:02)
[2022-07-31] MEDS: pantoprazole 40 mg SDV IVP ×2 (11:07→22:19)
[2022-07-31] MEDS: divalproex DR 250 mg Tablet PO ×2 (11:08→17:47)
[2022-07-31] MEDS: sucralfate 1 gm Tablet PO ×2 (11:08→22:19)
--- NOTE | 2022-07-31 11:25 | PC.SOCIAL ---
IMM update Imm updated with Adrienne, patient's sister. Copy of page 2 left at bedside. Adrienne verbalized understanding. Copy in chart initialed, dated and timed.
[2022-07-31 11:29] LABS: Glucose Point of Care 207 mg/dL (70-110)
[2022-07-31] MEDS: insulin lispro 100 unit/1 mL SUBCUT ×2 (12:57→17:47)
--- NOTE | 2022-07-31 13:55 | P.PN_ITS ---
Subjective Subjective: Patient was seen this morning, he is resting comfortably in bed, still working with physical therapy, still requires 1 person assist, keeping Ocampo catheter in place as patient does not know how to urinate into urinal, and high risk of repeated falls and for recurrent trips to the bathroom Vitals/I&O/Wt Last Vital Signs Temp 98.4 F 07/31/22 12:00 Pulse 93 07/31/22 12:00 Resp 18 07/31/22 12:00 BP 93/53 07/31/22 12:00 Pulse Ox 94 07/31/22 12:00 O2 Del Method 07/31/22 12:00 O2 Flow Rate 2 07/28/22 10:05 07/30/22 07/31/22 07/31/22 22:59 06:59 14:59 Intake Total 970 / 1330 120 / 120 Output Total 1999 1750 / 1750 Balance -1030 / -670 -1630 / -1630 Physical Exam Const: COMMON NORMALS: no acute distress ORIENTATION/CONSCIOUSNESS: Yes awake and Yes oriented to person; not oriented to place and not oriented to time Resp: COMMON NORMALS: normal respiratory effort, No retractions, No use of accessory muscles and clear to auscultation bilaterally AUSCULTATION: clear to auscultation bilaterally Cardio: COMMON NORMALS: regular rate, regular rhythm, S1 normal heart sound present and S2 normal heart sound present RATE: regular rate RHYTHM: regular rhythm HEART SOUNDS: S1 normal heart sound present and S2 normal heart sound present GI: COMMON NORMALS: Normal to inspection, nondistended, normoactive bowel sounds present and non-tender Extremity: COMMON NORMALS: no pedal edema Neuro: SENSORIUM/ORIENTATION: Yes oriented to person, No oriented to place and No oriented to time Urinary Catheter Management: Ocampo: Cath Placed During This Visit: yes Reason for Continuing Indwelling Catheter: Other Urinary Catheter Date of Insertion: 07/24/22 Urinary Catheter Time of Insertion: 21:00 Data 07/31/22 05:12 07/31/22 05:12 Micro: Microbiology 07/25/22 18:27 Blood Culture - Final Blood NO GROWTH AFTER 5 DAYS 07/25/22 18:20 Blood Culture - Final Blood NO GROWTH AFTER 5 DAYS A&P Assessment and plan (1) Iron deficiency anemia: (2) Acute on chronic anemia: (3) Hospital-acquired pneumonia: (4) Postoperative sepsis: (5) Intertrochanteric fracture of right hip: (6) Diabetes type 2, uncontrolled: Qualifiers: Glycemic state: with hyperglycemia Qualified Code(s): E11.65 - Type 2 diabetes mellitus with hyperglycemia (7) Temporal lobe epilepsy: (8) Secondarily generalized seizures: (9) Diabetes: Qualifiers: Diabetes mellitus type: type 2 Diabetes mellitus long-term insulin use: without long-term use Diabetes mellitus complication status: without complication Qualified Code(s): E11.9 - Type 2 diabetes mellitus without complications (10) Cerebral palsy: Qualifiers: Cerebral palsy type: unspecified type Qualified Code(s): G80.9 - Cerebral palsy, unspecified (11) GI bleed: Plan 62 male who presented to the hospital from [facility] after sustaining a fall while he was changing his pants when he soiled himself it was a witnessed fall, he was diagnosed with hip fracture s/p surgical intervention developed postoperative sepsis related to aspiration pneumonia/hospital-acquired pneumonia Slow GI bleed, hemoglobin 8.5 hemodynamic stable -With evidence of iron deficiency anemia -Status post 2 unit PRBC status -Status post 1 dose of IV Venofer -With Hemoccult positive stools -Was on anticoagulation, for DVT prophylaxis, currently discontinued -Protonix, Carafate -Monitor hemoglobin Sepsis related to aspiration pneumonia/hospital-acquired pneumonia De-escalate antibiotics to doxycycline Cultures so far negative Continue speech therapy on daily basis Patient at risk of chronic aspiration Acute on chronic anemia Iron-deficiency anemia Received 1 bag of PRBC when he started spiking fever he was given Decadron and Benadryl, blood transfusion related Hip fracture status post intervention PT OT Aspirin for DVT prophylaxis Keeping Ocampo catheter in place, as he cannot urinate into urinal due to behavioral reasons, he is too unsteady and high risk for falls currently after his hip replacement, we will potentially remove an intact for his Disposition plan: Likely will require [facility] placement for rehab Dysphagia diet Appreciate speech therapy recommendations History of epilepsy/seizure continue Depakote and Vimpat and lorazepam Continue home paroxetine Continue home Zyprexa 5 twice daily Constipation: Continue bowel regimen Full code Caregiver updated who is at the bedside History of transfusion reaction, monitor Attestations Medical Necessity Statement*: Patient requires hospitalization for hip fra cture awaiting nursing placement with GI bleed, hemoglobin 8.5 monitoring, Ocampo catheter in place, aspiration for pneumonia Diagnoses Iron deficiency anemia D50.9 Acute on chronic anemia D64.9 Hospital-acquired pneumonia J18.9; Y95 Postoperative sepsis T81.44XA Intertrochanteric fracture of right hip S72.141A Diabetes type 2, uncontrolled E11.65 Glycemic state: with hyperglycemia Temporal lobe epilepsy G40.109 Secondarily generalized seizures Diabetes E11.9 Diabetes mellitus type: type 2 Diabetes mellitus termite control representative insulin use: without termite control representative use Diabetes mellitus complication status: without complication Cerebral palsy G80.9 Cerebral palsy type: unspecified type GI bleed K92.2
[2022-07-31 17:03] LABS: Glucose Point of Care 184 mg/dL (70-110)
[2022-07-31] MEDS: trazodone 50 mg Tablet 25 MG PO (20:02)
[2022-07-31 21:36] LABS: Glucose Point of Care 175 mg/dL (70-110)
[2022-08-01] VITALS (8 sets, daily range): BP systolic 95–146; BP diastolic 50–75; PULSE 73–81; RESP 18–20; TEMP 36.8–37.4; O2SAT 90–94
[2022-08-01 04:21] LABS: Basophils # 0.1 10^3/uL (0.0-0.1); Basophils % 0.6 %; Eosinophils # 0.4 10^3/uL (0.0-0.8); Hematocrit 28.7 % (42.0-52.0); Hemoglobin 9.1 g/dL (11.7-16.6); Lymphocytes # 1.3 10^3/uL (0.8-4.8); Lymphocytes % 15.7 %; Mean Corpuscular HGB Conc 31.7 g/dL (30.0-36.0); Mean Corpuscular Hemoglobin 28.8 pg (28.0-34.0); Mean Corpuscular Volume 90.8 fl (80-94); Mean Platelet Volume 9.2 fL (7.4-10.4); Monocytes # 0.7 10^3/uL (0.2-0.9); Monocytes % 8.4 %; Neutrophils # 4.75 10^3/uL (1.8-7.7); Nucleated Red Blood Cells % 0 %; Platelet Count 433 10^3/cmm (130-400); Red Blood Count 3.16 10^6/uL (4.1-5.3); Red Cell Distribution Width 15.3 % (12.1-15.1); White Blood Count 8.1 10^3/uL (4.0-10.0)
[2022-08-01 04:48] LABS: Anion Gap 13.2 (5-19); Blood Urea Nitrogen 17 mg/dL (8-23); Calcium 8.4 mg/dL (8.5-10.5); Carbon Dioxide 25 mmol/L (22-29); Chloride 103 mmol/L (98-107); Glomerular Filtration Rate 136.1 mL/min (90-130); Glucose 224 mg/dL (65-115); Osmolality Calculated 293 mOsm/kg (285-295); Potassium 4.2 mmol/L (3.5-5.1); Sodium 137 mmol/L (136-145)
[2022-08-01 05:17] LABS: Slide Review Slide Review Perform
[2022-08-01 07:41] LABS: Glucose Point of Care 182 mg/dL (70-110)
[2022-08-01] MEDS: pantoprazole 40 mg SDV IVP ×2 (08:23→22:53)
[2022-08-01] MEDS: insulin lispro 100 unit/1 mL SUBCUT ×3 (08:23→17:48)
[2022-08-01] MEDS: divalproex DR 250 mg Tablet PO ×2 (08:23→17:48)
[2022-08-01] MEDS: doxycycline 100 mg Tablet PO ×2 (08:23→17:48)
[2022-08-01] MEDS: OLANZapine 5 mg TABLET PO ×2 (08:24→17:48)
[2022-08-01] MEDS: aspirin 81 mg EC Tablet PO (08:24)
[2022-08-01] MEDS: sucralfate 1 gm Tablet PO ×2 (08:24→22:53)
[2022-08-01] MEDS: sennosides-docusate Tablet 1 TAB PO (08:24)
[2022-08-01] MEDS: PARoxetine 20 mg Tablet 30 MG PO (08:24)
[2022-08-01 11:52] LABS: Glucose Point of Care 211 mg/dL (70-110)
--- NOTE | 2022-08-01 15:41 | P.PN_ITS ---
Subjective Subjective: Patient was seen this morning, sitting up in a chair, he has no complaints, according to nursing staff and physical therapy he requires extensive assistance with getting up and using the bathroom or ambulating, as he does not urinate into urinal, and he does not have the habit of urinating in bed, will have to keep his Ocampo catheter in place, has a high risk of recurrent fall and fracture if he gets up and use the bathroom on his own Vitals/I&O/Wt Last Vital Signs Temp 98.2 F 08/01/22 15:20 Pulse 73 08/01/22 15:20 Resp 18 08/01/22 15:20 BP 134/72 08/01/22 15:20 Pulse Ox 93 08/01/22 15:20 O2 Del Method 08/01/22 15:20 O2 Flow Rate 2 07/28/22 10:05 08/01/22 08/01/22 08/01/22 06:59 14:59 22:59 Intake Total 720 / 720 Output Total 500 / 3000 Balance -500 / -1680 720 / 720 Physical Exam Const: COMMON NORMALS: no acute distress ORIENTATION/CONSCIOUSNESS: Yes awake and Yes oriented to person Resp: COMMON NORMALS: normal respiratory effort, No retractions, No use of accessory muscles and clear to auscultation bilaterally AUSCULTATION: clear to auscultation bilaterally Cardio: COMMON NORMALS: regular rate, regular rhythm, S1 normal heart sound present and S2 normal heart sound present RATE: regular rate RHYTHM: regular rhythm HEART SOUNDS: S1 normal heart sound present and S2 normal heart sound present GI: COMMON NORMALS: Normal to inspection, nondistended, normoactive bowel sounds present and non-tender Extremity: COMMON NORMALS: no pedal edema Neuro: SENSORIUM/ORIENTATION: Yes oriented to person Urinary Catheter Management: Ocampo: Cath Placed During This Visit: yes Reason for Continuing Indwelling Catheter: Other Urinary Catheter Date of Insertion: 07/24/22 Urinary Catheter Time of Insertion: 21:00 Data 08/01/22 03:40 08/01/22 03:40 A&P Assessment and plan (1) Iron deficiency anemia: (2) Acute on chronic anemia: (3) Hospital-acquired pneumonia: (4) Postoperative sepsis: (5) Intertrochanteric fracture of right hip: (6) Diabetes type 2, uncontrolled: Qualifiers: Glycemic state: with hyperglycemia Qualified Code(s): E11.65 - Type 2 diabetes mellitus with hyperglycemia (7) Temporal lobe epilepsy: (8) Secondarily generalized seizures: (9) Diabetes: Qualifiers: Diabetes mellitus type: type 2 Diabetes mellitus intermediate insulin use: without intermediate use Diabetes mellitus complication status: without complication Qualified Code(s): E11.9 - Type 2 diabetes mellitus without complications (10) Cerebral palsy: Qualifiers: Cerebral palsy type: unspecified type Qualified Code(s): G80.9 - Cerebral palsy, unspecified (11) GI bleed: Plan 62 male who [facility] the hospital from [facility] after sustaining a fall while he was changing his pants when he soiled himself it was a witnessed fall, he was diagnosed with hip fracture s/p surgical intervention developed postoperative sepsis related to aspiration pneumonia/hospital-acquired pneumonia Slow GI bleed, hemoglobin 9.1 hemodynamic stable -With evidence of iron deficiency anemia -Status post 2 unit PRBC status -Status post 1 dose of IV Venofer -With Hemoccult positive stools -Was on anticoagulation, for DVT prophylaxis, currently discontinued -Protonix, Carafate -Monitor hemoglobin Sepsis related to aspiration pneumonia/hospital-acquired pneumonia De-escalate antibiotics to doxycycline Cultures so far negative Continue speech therapy on daily basis Patient at risk of chronic aspiration Acute on chronic anemia Iron-deficiency anemia Received 1 bag of PRBC when he started spiking fever he was given Decadron and Benadryl, blood transfusion related Hip fracture status post intervention PT OT Aspirin for DVT prophylaxis Keeping Ocampo catheter in place, as he cannot urinate into urinal due to behavioral reasons, he is too unsteady and high risk for falls currently after his hip replacement, we will potentially remove an intact for his Disposition plan: Likely will require half-way placement for rehab Dysphagia diet Appreciate speech therapy recommendations History of epilepsy/seizure continue Depakote and Vimpat and lorazepam Continue home paroxetine Continue home Zyprexa 5 twice daily Constipation: Continue bowel regimen Full code Caregiver updated who is at the bedside History of transfusion reaction, monitor Attestations Medical Necessity Statement*: Patient requires hospital for hip fracture, iron deficiency anemia Diagnoses Iron deficiency anemia D50.9 Acute on chronic anemia D64.9 Hospital-acquired pneumonia J18.9; Y95 Postoperative sepsis T81.44XA Intertrochanteric fracture of right hip S72.141A Diabetes type 2, uncontrolled E11.65 Glycemic state: with hyperglycemia Temporal lobe epilepsy G40.109 Secondarily generalized seizures Diabetes E11.9 Diabetes mellitus type: type 2 Diabetes mellitus intermediate insulin use: without terminologist use Diabetes mellitus complication status: without complication Cerebral palsy G80.9 Cerebral palsy type: unspecified type GI bleed K92.2
[2022-08-01 17:22] LABS: Glucose Point of Care 180 mg/dL (70-110)
[2022-08-01 21:36] LABS: Glucose Point of Care 261 mg/dL (70-110)
[2022-08-01] MEDS: trazodone 50 mg Tablet 25 MG PO (22:53)
[2022-08-01] MEDS: lacosamide 50 mg Tablet 200 MG PO (22:53)
[2022-08-02] VITALS (7 sets, daily range): BP systolic 97–123; BP diastolic 55–76; PULSE 69–85; RESP 16–18; TEMP 36.4–36.9; O2SAT 92–98
[2022-08-02 06:36] LABS: Glucose Point of Care 216 mg/dL (70-110)
[2022-08-02] MEDS: insulin lispro 100 unit/1 mL SUBCUT (09:03)
[2022-08-02] MEDS: divalproex DR 250 mg Tablet PO (09:33)
[2022-08-02] MEDS: doxycycline 100 mg Tablet PO (09:34)
[2022-08-02] MEDS: OLANZapine 5 mg TABLET PO (09:34)
[2022-08-02] MEDS: PARoxetine 20 mg Tablet 30 MG PO (09:34)
[2022-08-02] MEDS: sennosides-docusate Tablet 1 TAB PO (09:35)
[2022-08-02] MEDS: aspirin 81 mg EC Tablet PO (09:35)
[2022-08-02] MEDS: sucralfate 1 gm Tablet PO (09:39)
[2022-08-02] MEDS: pantoprazole 40 mg SDV IVP (10:30)
[2022-08-02 11:42] LABS: Glucose Point of Care 128 mg/dL (70-110)
--- NOTE | 2022-08-02 12:11 | PM.DCS ---
Discharge Providers Date of Admission: 07/24/22 16:01 Date of Discharge: August 02, 2022 Attending Provider at Admission: June Severino MD Attending Provider at Discharge: Salomon Salgado MD Primary Care Provider: Bernard Gonzalez DO Diagnoses at Discharge Discharge Diagnosis (1) Iron deficiency anemia: Status: Acute (2) Acute on chronic anemia: Status: Acute (3) Hospital-acquired pneumonia: Status: Acute (4) Postoperative sepsis: Status: Acute (5) Intertrochanteric fracture of right hip: Status: Acute (6) Diabetes type 2, uncontrolled: Status: Acute Qualifiers: Glycemic state: with hyperglycemia Qualified Code(s): E11.65 - Type 2 diabetes mellitus with hyperglycemia (7) Temporal lobe epilepsy: Status: Acute (8) Secondarily generalized seizures: Status: Acute (9) Diabetes: Status: Acute Qualifiers: Diabetes mellitus type: type 2 Diabetes mellitus long-term insulin use: without 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 As per the caregiver patient soiled himself in the asked him to change his pants, patient wanted to stay independent and get up on his own in order to change his pants however he lost his balance and landed on his hips He did not lose consciousness, no chest pain, nausea, vomiting no recent fever.? He eats mechanical soft diet, diabetic diet.? He is on oral antihyperglycemic agents, he takes Vimpat and Depakote daily and antipsychotics.? I have reviewed medications he is full code Patient was admitted to [facility] for hip fracture, status post intervention, discharged to long-term, with outpatient physical therapy, and aspirin for DVT prophylaxis Patient developed a slow GI bleed during his hospitalization, requiring 2 units PRBC, 1 dose IV Venofer, hemodynamically stable, hemoglobin stable. Was on anticoagulation for DVT prophylaxis, discontinued, maintain on Protonix, Carafate on discharge. Monitor hemoglobin through outpatient physician, follow-up with general surgery in 1 month for consideration of EGD and colonoscopy. If you were to have any recurrent bloody or black stools go to emergency room. In terms of DVT prophylaxis, had a discussion with patient's caregiver and long-term about his risk of developing DVTs, as we cannot anticoagulate him given his slow GI bleed, he does have a risk of developing DVTs, I have nonetheless discharged him on aspirin which we will help to some degree, but he still has a risk, thus continue to do daily mobility He also developed sepsis related to aspiration pneumonia, hospital-acquired pneumonia, received broad-spectrum antibiotic therapy, clinically improved, completed antibiotic therapy as inpatient Physical Exam Const: COMMON NORMALS: no acute distress Resp: COMMON NORMALS: normal respiratory effort, No retractions, No use of accessory muscles and clear to auscultation bilaterally AUSCULTATION: clear to auscultation bilaterally Cardio: COMMON NORMALS: regular rate, regular rhythm, S1 normal heart sound present and S2 normal heart sound present RATE: regular rate RHYTHM: regular rhythm HEART SOUNDS: S1 normal heart sound present and S2 normal heart sound present GI: COMMON NORMALS: Normal to inspection, nondistended, normoactive bowel sounds present and non-tender Extremity: COMMON NORMALS: no pedal edema Urinary Catheter Management: Ocampo: Cath Placed During This Visit: yes Reason for Continuing Indwelling Catheter: Other Urinary Catheter Date of Insertion: 07/24/22 Urinary Catheter Time of Insertion: 21:00 Discharge Data Studies Completed and Pending Completed Studies During Hospitalization Category Date Time Status CT angio chest w abd pel w con Routine Cat Scan 07/25/22 18:32 Completed CXRP [XR chest 1V portable [id number]] Stat Exams 07/25/22 15:14 Completed XR KUB portable [id number] Urgent Exams 07/25/22 22:24 Completed XR chest 1V portable [id number] Routine Exams 07/27/22 18:45 Completed XR chest 1V portable [id number] Stat Exams 07/24/22 15:47 Completed XR hip RT 1V wo/[place] [id number] Routine Exams 07/25/22 12:55 [place] [id number] Routine Ultrasound 07/25/22 18:32 Completed Radiology Impressions Hip X-Ray 07/25/22 12:55 Impression: Internal fixation of intertrochanteric fracture of the right hip. Chest/Abdomen/Pelvis CT 07/25/22 18:32 IMPRESSION: 1. Bilateral lower lobe pneumonia. 2. No evidence of pulmonary embolism. IMPRESSION: 1. No acute findings in the abdomen or pelvis. 2. Thickened urinary bladder wall. Please correlate for any clinical signs or symptoms of urinary tract infection. COMMENTS: Consistent with the [employer]'s Incidental Findings Committee white paper (J Am Lashawn Radiol 2018): Any incidental renal lesion less than 1 cm or classified as too small to characterize, or any incidental cystic renal lesion characterized as simple-appearing, is likely benign. No follow-up imaging is recommended for these lesions per consensus recommendations based on imaging criteria. KUB X-Ray 07/25/22 22:24 IMPRESSION: Nonspecific bowel gas pattern Chest X-Ray 07/27/22 18:45 IMPRESSION: Worsening right lower lobe subsegmental consolidation that may be secondary to atelectasis or in the appropriate clinical setting, pneumonia. Laboratory Results WBC 8.1 10^3/uL (4.0-10.0) 08/01/22 03:40 RBC 3.16 10^6/uL (4.1-5.3) L 08/01/22 03:40 Hgb 9.1 g/dL (11.7-16.6) L 08/01/22 03:40 Hct 28.7 % (42.0-52.0) L 08/01/22 03:40 MCV 90.8 fl (80-94) 08/01/22 03:40 MCH 28.8 pg (28.0-34.0) 08/01/22 03:40 MCHC 31.7 g/dL (30.0-36.0) 08/01/22 03:40 RDW 15.3 % (12.1-15.1) H 08/01/22 03:40 Plt Count 433 10^3/cmm (130-400) H 08/01/22 03:40 MPV 9.2 fL (7.4-10.4) 08/01/22 03:40 Neut % (Auto) 59.0 % 08/01/22 03:40 Lymph % (Auto) 15.7 % 08/01/22 03:40 [place] % (Auto) 8.4 % 08/01/22 03:40 Eos % (Auto) 5.0 % 08/01/22 03:40 Baso % (Auto) 0.6 % 08/01/22 03:40 Neut # (Auto) 4.75 10^3/uL (1.8-7.7) 08/01/22 03:40 Lymph # (Auto) 1.3 10^3/uL (0.8-4.8) 08/01/22 03:40 [place] # (Auto) 0.7 10^3/uL (0.2-0.9) 08/01/22 03:40 Eos # (Auto) 0.4 10^3/uL (0.0-0.8) 08/01/22 03:40 Baso # (Auto) 0.1 10^3/uL (0.0-0.1) 08/01/22 03:40 Nucleated RBC % (auto) 0 % 08/01/22 03:40 Total Counted 100 (0-100) 07/30/22 04:53 Atypical Lymphs % 2.0 % (0-5) 07/30/22 04:53 Absolute Neutrophils 4.8 10^3/cmm (1.4-6.5) 07/30/22 04:53 Segmented Neutrophils 58 % 07/30/22 04:53 Abs Segm Neuts (Man) 4.3 10/cmm (1.6-7.1) 07/30/22 04:53 Band Neutrophils 7.0 % 07/30/22 04:53 Abs Band Neuts (Man) 0.5 10^3/cmm (0.0-1.2) 07/30/22 04:53 Absolute Lymphocytes 1.5 10^3/cmm (1.2-3.4) 07/30/22 04:53 Lymphocytes (Manual) 18 % 07/30/22 04:53 Monocytes (Manual) 11.0 % 07/30/22 04:53 Absolute Monocytes 0.8 10^3/cmm (0.1-0.6) H 07/30/22 04:53 Eosinophils (Manual) 1 % 07/30/22 04:53 Absolute Eosinophils 0.0 10^3/cmm (0.0-0.7) 07/30/22 04:53 Basophils (Manual) 1.0 % 07/30/22 04:53 Absolute Basophils 0.1 10^3/cmm (0.0-0.2) 07/30/22 04:53 Metamyelocytes 2.0 % 07/30/22 04:53 Nucleated RBCs 1.0 /100WBC (0-1) 07/30/22 04:53 Nucleated RBCs # 0.0 /100WBC 08/01/22 03:40 Platelet Estimate Normal (Normal) 07/30/22 04:53 Anisocytosis 1+ H 07/30/22 04:53 Macrocytosis Trace 07/30/22 04:53 Haptoglobin 178.0 mg/L (30-200) 07/26/22 01:12 PT 13.60 SECONDS (12.1-14.9) 07/24/22 16:00 INR 1.01 (0.8-1.2) 07/24/22 16:00 D-Dimer 5.43 ug/mIFEU (0-0.59) H 07/25/22 17:42 Sodium 137 mmol/L (136-145) 08/01/22 03:40 Potassium 4.2 mmol/L (3.5-5.1) 08/01/22 03:40 Chloride 103 mmol/L (98-107) 08/01/22 03:40 Carbon Dioxide 25 mmol/L (22-29) 08/01/22 03:40 Anion Gap 13.2 (5-19) 08/01/22 03:40 BUN 17 mg/dL (8-23) 08/01/22 03:40 Creatinine 0.6 mg/dL (0.7-1.2) L 08/01/22 03:40 GFR Calculation 136.1 mL/min (90-130) H 08/01/22 03:40 Glucose 224 mg/dL (65-115) H 08/01/22 03:40 POC Glucose 128 mg/dL (70-110) H 08/02/22 11:39 Calculated Osmolality 293 mOsm/kg (285-295) 08/01/22 03:40 Lactic Acid 2.2 mmol/L (0.5-2.2) 07/25/22 18:20 Lactic Acid (Sepsis) 2.0 mmol/L (0.5-2.2) 07/25/22 20:33 Calcium 8.4 mg/dL (8.5-10.5) L 08/01/22 03:40 Phosphorus 3.1 mg/dL (2.5-4.5) 07/25/22 03:59 Magnesium 1.7 mg/dL (1.7-2.3) 07/25/22 03:59 Iron 13 ug/dL (59-158) L 07/27/22 07:58 TIBC 135 mcg/dl 07/27/22 07:58 % Saturation 9.6 % (20-50) L 07/27/22 07:58 Unsat Iron Binding 122 ug/dL (112-347) 07/27/22 07:58 Ferritin 300 ng/mL (30-400) 07/26/22 01:12 Total Bilirubin 0.2 mg/dL (0.15-1.2) 07/26/22 01:12 Direct Bilirubin 0.20 mg/dL (0.00-0.30) 07/26/22 01:12 Indirect Bilirubin 0 07/26/22 01:12 AST 17 U/L (0-40) 07/24/22 16:00 ALT 13 U/L (0-41) 07/24/22 16:00 Alkaline Phosphatase 71 U/L (40-130) 07/24/22 16:00 Lactate Dehydrogenase 197 U/L (135-225) 07/29/22 07:15 Total Protein 7.3 g/dL (6.6-8.7) 07/24/22 16:00 Albumin 4.3 g/dL (3.5-5.2) 07/24/22 16:00 Globulin 3.0 g/dL (1.3-4.6) 07/24/22 16:00 Vitamin B12 978 pg/mL (232-1245) 07/29/22 07:15 Urine Color Yellow (Yellow) 07/27/22 21:15 Urine Appearance Clear (CLEAR) 07/27/22 21:15 Urine pH 5 (5-7) 07/27/22 21:15 Ur Specific [place] 1.020 (1.005-1.030) 07/27/22 21:15 Urine Protein Neg (Negative) 07/27/22 21:15 Urine Glucose (UA) 2+ (Normal) H 07/27/22 21:15 Urine Ketones 1+ (Negative) H 07/27/22 21:15 Urine Blood Neg (Negative) 07/27/22 21:15 Urine Nitrate Negative (Negative) 07/27/22 21:15 Urine Bilirubin Neg (Negative) 07/27/22 21:15 Urine Urobilinogen Norm mg/dL (Negative) 07/27/22 21:15 Ur Leukocyte Esterase Negative (Negative) 07/27/22 21:15 Urine RBC 0-4 /hpf (0-2) H 07/26/22 08:02 Urine WBC 0-4 /hpf (0-5) H 07/26/22 08:02 Ur Squamous Epith Cells None /hpf (0-5) 07/26/22 08:02 Uric Acid Crystals 0-4 /hpf 07/26/22 08:02 Amorphous Sediment Not Reportable 07/26/22 08:02 Urine Bacteria Trace /hpf (NONE) 07/26/22 08:02 Urine Mucus Trace /hpf 07/26/22 08:02 Vancomycin Trough 15.6 ug/mL (10-15) H 07/29/22 07:15 Coronavirus 229E (PCR) Not detected (NOT DETECT) 07/26/22 08:30 Human Metapneumovir PCR Not detected (NOT DETECT) 07/26/22 11:06 Entero/Rhino (PCR) Detected (NOT DETECT) A 07/26/22 11:06 SARS-CoV-2 (PCR) Not detected (NOT DETECT) 07/26/22 08:30 Blood Type A Positive 07/27/22 07:58 Rho(D) Type Positive 07/27/22 07:58 Antibody Screen Negative 07/27/22 07:58 ELISHA, Poly Interpret Negative 07/28/22 02:51 Crossmatch See Detail 07/27/22 07:58 Reaction Clerical Check No discrepancy 07/27/22 20:40 Pre-Trans Blood Type Ap 07/27/22 20:40 Pre-Trans Urine RBC Yes 07/27/22 20:40 Post-Trans Blood Type A Positive 07/27/22 20:40 Post-Tx Visible Hemolys No hemolysis 07/27/22 20:40 Post-Trans ELISHA Negative 07/27/22 20:40 Vitals Last Vital Signs Temp 97.6 F 08/02/22 11:32 Pulse 85 08/02/22 11:32 Resp 16 08/02/22 11:32 BP 109/71 08/02/22 11:32 Pulse Ox 95 08/02/22 11:32 O2 Del Method 08/02/22 11:32 O2 Flow Rate 2 07/28/22 10:05 Discharge Plan Discharge Patient Disposition: Xfer Intermediate Care Fac Condition: Stable Prescriptions: New hydrocodone-acetaminophen 5-325 mg tablet 1 tab PO BID PRN (Reason: pain) 7 Days Qty: 14 0RF sucralfate 1 gram Tablet 1 g PO Q12H 30 Days Qty: 60 0RF aspirin 81 mg Tablet,Delayed Release (Dr/Ec) 81 mg PO DAILY 30 Days Qty: 30 0RF pantoprazole [Protonix] 40 mg tablet,delayed release (DR/EC) 40 mg PO BID 30 Days Qty: 60 0RF Continued multivitamin Capsule 1 cap PO DAILY acetaminophen [Tylenol] 325 mg capsule 650 mg PO Q6H PRN (Reason: Pain) alum-mag hydroxide-simeth [Giana-Lanta] 200-200-20 mg/5 mL suspension 10 ml PO Q6H PRN (Reason: indigestion) Qty: 3000 3RF guaifenesin [Adult Tussin Chest Congestion] 100 mg/5 mL liquid 200 mg PO Q4H PRN (Reason: cough) Qty: 473 0RF magnesium hydroxide [Milk of Magnesia] 400 mg/5 mL suspension See Rx Instructions PO .COMPLEX PRN (Reason: constipation) Qty: 473 5RF Rx Instructions: 30ML PO on 4th day if no BM in 3 days. Call nurse on 5th day. trazodone 50 mg tablet See Rx Instructions .ROUTE .COMPLEX Qty: 30 5RF Dose Instruction: TAKE 1/2 TABLET BY MOUTH AT BEDTIME Rx Instructions: TAKE 1/2 TABLET BY MOUTH AT BEDTIME paroxetine HCl 30 mg tablet See Rx Instructions .ROUTE .COMPLEX Qty: 30 5RF Dose Instruction: TAKE ONE TABLET BY MOUTH DAILY Rx Instructions: TAKE ONE TABLET BY MOUTH DAILY Depakote 250 mg tablet,delayed release (DR/EC) 250 mg PO BID Qty: 60 11RF (DME) True Metrix Glucose Test Strip Strip See Rx Instructions .ROUTE .COMPLEX Qty: 100 5RF Dose Instruction: USE TO test blood sugar ONCE DAILY DIRECTED Rx Instructions: USE TO test blood sugar ONCE DAILY DIRECTED (DME) lancets [TRUEplus Lancets] 30 gauge misc See Rx Instructions .ROUTE .COMPLEX Qty: 100 5RF Dose Instruction: USE TO test blood sugar ONCE DAILY Rx Instructions: USE TO test blood sugar ONCE DAILY polyethylene glycol 3350 17 gram/dose powder See Rx Instructions .ROUTE .COMPLEX Qty: 510 5RF Dose Instruction: FILL CAP TO LINE (17 GRAMS), MIX IN 8 OUNCES OF LIQUID AND DRINK BY MOUTH ONCE DAILY Rx Instructions: FILL CAP TO LINE (17 GRAMS), MIX IN 8 OUNCES OF LIQUID AND DRINK BY MOUTH ONCE DAILY loratadine 10 mg tablet See Rx Instructions .ROUTE .COMPLEX Qty: 90 3RF Dose Instruction: TAKE ONE TABLET BY MOUTH EVERY DAY Rx Instructions: TAKE ONE TABLET BY MOUTH EVERY DAY diphenhydramine HCl [Allergy Relief(diphenhydramin)] 25 mg tablet See Rx Instructions .ROUTE .COMPLEX Qty: 90 5RF Dose Instruction: TAKE ONE TABLET BY MOUTH EVERY 8 HOURS NEEDED FOR CONGESTION Rx Instructions: TAKE ONE TABLET BY MOUTH EVERY 8 HOURS NEEDED FOR CONGESTION ketoconazole 2 % shampoo See Rx Instructions .ROUTE .COMPLEX Qty: 200 3RF Dose Instruction: APPLY topically four times WEEKLY Rx Instructions: APPLY topically four times WEEKLY alcohol swabs Pads, Medicated See Rx Instructions .ROUTE .COMPLEX Qty: 100 5RF Dose Instruction: USE ONE pad topically daily DIRECTED Rx Instructions: USE ONE pad topically daily DIRECTED glucose 4 gram tablet,chewable See Rx Instructions .ROUTE .COMPLEX Qty: 50 0RF Dose Instruction: USE DIRECTED PER package directions Rx Instructions: USE DIRECTED PER package directions Vimpat 200 mg tablet 200 mg PO BID Qty: 60 5RF calcium carbonate-vitamin D3 [Oyster Shell Calcium-Vit D3] 500 mg-5 mcg (200 unit) tablet See Rx Instructions .ROUTE .COMPLEX Qty: 30 5RF Dose Instruction: TAKE ONE TABLET BY MOUTH EVERY DAY FOR SUPPLEMENT Rx Instructions: TAKE ONE TABLET BY MOUTH EVERY DAY FOR SUPPLEMENT [place] 18-400 mg-mcg tablet See Rx Instructions .ROUTE .COMPLEX Qty: 30 0RF Dose Instruction: TAKE ONE TABLET BY MOUTH EVERY DAY FOR supplement Rx Instructions: TAKE ONE TABLET BY MOUTH EVERY DAY FOR supplement Zyprexa 5 mg Tablet 5 mg PO BID lorazepam 1 mg Tablet 1 mg PO Q4H PRN (Reason: Agitation) lorazepam 1 mg Tablet 1 mg PO DAILY PRN (Reason: Seizures) Rx Instructions: SEIZURES Januvia 100 mg Tablet 100 mg PO DAILY Changed glimepiride 4 mg tablet 2 mg PO DAILY Qty: 30 5RF Rx Instructions: 4 mg orally; Discontinued omeprazole 20 mg capsule,delayed release(DR/EC) 20 mg PO DAILY Qty: 30 5RF Januvia 100 mg tablet See Rx Instructions .ROUTE .COMPLEX Qty: 30 5RF Dose Instruction: TAKE ONE TABLET BY MOUTH EVERY DAY Rx Instructions: TAKE ONE TABLET BY MOUTH EVERY DAY Discharge Orders: Discharge Order (Routine); Ordered 08/02/22 Ordered By: Salomon Salgado Referrals: Bernard Gonzalez DO [Primary Care Provider] - 1-3 days Tarik Carter DO [Physician] - 1 week Glen Ponce DO [Physician] - 2 weeks Discharge Diet: As Directed Discharge Activity: Use walker/crutches as instructed Patient Instructions: Hydrocodone (By mouth) Activity Restrictions/Additional Instructions: -Please use hydrocodone sparingly for pain, monitor for respiratory depression, if so call 911 -Please see primary care for recheck hemoglobin in 1 week -Referral to general surgery for consideration of EGD and colonoscopy You are being discharged from the hospital today during which time you have been under the care of Dr Ponce. You had a Right hip fracture. You were treated for this injury with IM nail. You may resume you normal diet (including any special diets as directed by your primary doctor) as well as your home medications. You should follow up with you primary doctor if you have any questions regarding medication you took prior to your stay in the hospital. You may take your pain medication as prescribed. After the first few days, take your pain medication as needed. Do not drive or drink alcohol while taking your pain medication. Your injury may increase your risk of developing a blood clot,or DVT, in your arm or leg. This could potentially dislodge and travel to your lungs and become a life threatening condition called apulmonary embolus,or PE. You have been prescribed eliquis to be taken to prevent this. Frequent movement of the legs will also help prevent this from occurring. If you develop any new or worsening cough, chestpain, bloody sputum or shortness of breath, call 911 or go to the EmergencyRoom. Always keep your surgical incision/dressing clean and dry. If you experience increasing pain at your incision site, redness, swelling, increasing discharge, foul odors, or fevers (greater than 100.4), night sweats or chills you should call the office at the above number. If you feel this is an emergency you should be evaluated in the Emergency Department of a nearby hospital. Orthopedic Patient Instructions Summary: Weight Bearing: PWB right LE Activity: as tolerated. Diet: regular. Wound Care: Keep dressing clean and dry. Change as needed Anticoagulation: aspirin Pain Medication: Take only as needed. Ice, rest and elevation will be of great benefit. Please plan to follow-up wlth Dr Ponce in 2 weeks. You will need to call the clinic [phone] to schedule. Do not hesitate to call the office with any questions or concerns. Discharge Attestations Time Spent in Discharge Care*: greater than 30 min Quality Metrics Clinical Quality Measures [ No reported AMI, CVA or VTE this stay] Coding Level of Care Code 55907 Total time (in minutes) for Discharge: 40 Diagnoses Iron deficiency anemia D50.9 Acute on chronic anemia D64.9 Hospital-acquired pneumonia J18.9; Y95 Postoperative sepsis T81.44XA Intertrochanteric fracture of right hip S72.141A Diabetes type 2, uncontrolled E11.65 Glycemic state: with hyperglycemia Temporal lobe epilepsy G40.109 Secondarily generalized seizures Diabetes E11.9 Diabetes mellitus type: type 2 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
--- NOTE | 2022-08-02 17:03 | PC.SOCIAL ---
IMM UPDATED IMM dated and initialed and copy given to patient and copy placed in chart.
== END 2022-08-02 17:18 | disposition home health service (06) | DRG 480 ==
LOC: ER 16:04 → MEDSURG 16:45 → ICU 07-25 17:49 → MEDSURG 07-28 15:49
PROVIDERS: Internal Medicine Hematology & Oncology; Orthopaedic Surgery; Admitting Provider Internal Medicine; Emergency Provider Emergency Medicine; PCP Family Medicine; Visit Provider Family Medicine
PROC: 0QH636Z Insertion of Intramedullary Internal Fixation Device into Right Upper Femur, Percutaneous Approach (ICD-10-PCS; CPT 27245; principal; 2022-07-25 15:30)
DX: S72.141A Displaced intertrochanteric fracture of right femur, initial encounter for closed fracture (principal); J69.0 Pneumonitis due to inhalation of food and vomit; R65.21 Severe sepsis with septic shock; G40.802 Other epilepsy, not intractable, without status epilepticus; J95.89 Other postprocedural complications and disorders of respiratory system, not elsewhere classified; K92.2 Gastrointestinal hemorrhage, unspecified; T81.44XA Sepsis following a procedure, initial encounter; I48.92 Unspecified atrial flutter; W01.0XXA Fall on same level from slipping, tripping and stumbling without subsequent striking against object, initial encounter; F79 Unspecified intellectual disabilities; E11.65 Type 2 diabetes mellitus with hyperglycemia; Y95 Nosocomial condition; Z79.84 Long term (current) use of oral hypoglycemic drugs; F31.9 Bipolar disorder, unspecified; G80.9 Cerebral palsy, unspecified; Z87.820 Personal history of traumatic brain injury; K59.00 Constipation, unspecified; R13.10 Dysphagia, unspecified; T80.89XA Other complications following infusion, transfusion and therapeutic injection, initial encounter; R50.9 Fever, unspecified; Z79.899 Other long term (current) drug therapy; D50.0 Iron deficiency anemia secondary to blood loss (chronic); Z91.81 History of falling; Y84.8 Other medical procedures as the cause of abnormal reaction of the patient, or of later complication, without mention of misadventure at the time of the procedure
CPT/HCPCS: 36415; 36416; 36430; 51702; 71045; 71275; 73501; 73502; 73552; 73590; 74018; 74177; 76000; 80048; 80053; 80202; 80503; 81001; 81003; 82247; 82248; 82274; 82607; 82728; 82962; 83010; 83540; 83550; 83605; 83615; 83735; 84100; 85007; 85014; 85018; 85025; 85378; 85610; 86850; 86880; 86900; 86920; 87040; 87635; 87801; 92523; 92526; 92610; 93005; 93970; 94664; 96372; 96374; 96375; 97110; 97116; 97161; 97167; 97530; 97535; 99285; C1713; C1776; C9113; J1100; J1170; J1200; J1650; J1756; J1815; J1885; J1940; J2270; J2370; J2405; J2543; J2704; J3010; J3370; J3486; J3490; J7030; J7050; J7060; P9016; Q9967

== ENCOUNTER → 2022-08-11 13:07 | Outpatient (BNVA) | payer MEDICARE, MEDICAID, SELFPAY | PROVIDERS: PCP Family Medicine; Visit Provider Physician Assistant | DX: S72.141A Displaced intertrochanteric fracture of right femur, initial encounter for closed fracture (principal); M79.18 Myalgia, other site; Z98.890 Other specified postprocedural states; X58.XXXA Exposure to other specified factors, initial encounter | CPT/HCPCS: 73502; 99024 ==

== ENCOUNTER 2022-08-22 14:41 | Outpatient (CLI) | payer MEDICARE, MEDICAID, SELFPAY ==
--- NOTE | 2022-08-22 15:00 | US_ITS ---
WS: [id number] ULTRASOUND SOFT TISSUES LEFT gluteal region. HISTORY: ABNORMAL MUSCLE MASS TO LEFT GLUTEAL MUSCLE COMPARISON: None available. TECHNIQUE: 2-D and color Doppler imaging is submitted. There is a very small superficial hypoechoic region in the area of clinical concern. There is no ulce rated tract or ulceration. The area of mild decreased echogenicity measures 9 x 4 mm. Probably a sup erficial area of folliculitis or dermatitis. US/US soft tissue/extremity 03803 IMPRESSION: Very minimal superficial soft tissue edema. No abscess.
== END 2022-08-22 14:42 | disposition home or self-care (01) ==
LOC: RAD 14:46
PROVIDERS: PCP Family Medicine; Visit Provider Physician Assistant
DX: S76.012A Strain of muscle, fascia and tendon of left hip, initial encounter (principal); X58.XXXA Exposure to other specified factors, initial encounter; R60.0 Localized edema
CPT/HCPCS: 76882

== ENCOUNTER → 2022-08-23 10:26 | Outpatient (BNVA) | payer MEDICARE, MEDICAID, SELFPAY | PROVIDERS: PCP Family Medicine; Visit Provider Surgery | DX: K92.2 Gastrointestinal hemorrhage, unspecified (principal) | CPT/HCPCS: 99203 ==

== ENCOUNTER → 2022-08-30 08:45 | Outpatient (BNVA) | payer MEDICARE, MEDICAID, SELFPAY | PROVIDERS: PCP Family Medicine; Visit Provider Physician Assistant | DX: S72.001A Fracture of unspecified part of neck of right femur, initial encounter for closed fracture (principal); X58.XXXA Exposure to other specified factors, initial encounter | CPT/HCPCS: 99024 ==

== ENCOUNTER 2022-09-28 08:03 | Day surgery (SDC) | payer MEDICARE, MEDICAID, SELFPAY ==
[2022-09-26 08:53] VITALS: BMI 20.3
[2022-09-28 08:54] VITALS: BP 117/75; PULSE 78; RESP 18; TEMP 36.2; O2SAT 100
[2022-09-28] MEDS: sodium chloride 0.9% 1,000 ML 30 ML IV (08:58)
--- NOTE | 2022-09-28 09:47 | P.ANESASSM_ITS ---
Pre-Anesthetic Assessment Height/Weight: Height 1.7 m Weight 58.967 kg Temp Pulse Resp BP Pulse Ox O2 Del Method 97.1 F L 78 18 117/75 100 Room Air 09/28/22 08:54 09/28/22 08:54 09/28/22 08:54 09/28/22 08:54 09/28/22 08:54 09/28/22 08:54 Preop Diagnosis: anemia, gi hemorrhage Operation Date: 09/28/22 09:30 Proposed Procedures p 41950 egd, [id number] colon(Not Applicable) - Tarik Carter DO s Colonoscopy(Not Applicable) - Tarik Carter DO Last intake: Intake Last Liquid Date 09/27/22 Last Liquid Time 18:00 Last Solid Date 09/26/22 Last Solid Time 17:30 Social No alcohol and No tobacco Exam alert, clear to auscultation bilaterally and regular rate & rhythm baseline CP and MR Airway Submandibular: within normal limits Cervical ROM: within normal limits Mallampati: Class II Comments: Comments: poor dentition History/ROS No significant history except as noted and No significant complaints Pulmonary None reported CV/HEM None reported None reported Hepatic None reported GI gi hemorrhage, gerd Metabolic Diabetes Mellitus [facility] None reported Neuropsych Bipolar and Seizure ADD, CP, MR, dee of state Anesthetic Plan ASA status: 3 Anesthesia: Anesthesia Evaluation and MAC Other Pertinent Information hx aspiration with anesthesia. had GA with LMA in 07/2022 uneventfully. Medications/Allergies Home Medications Medication Instructions Recorded Confirmed Last Taken Type acetaminophen 325 mg capsule 650 mg PO Q6H PRN Pain 10/02/19 09/26/22 Unknown History (Tylenol) multivitamin 1 cap PO DAILY 10/02/19 09/26/22 09/26/22 History aluminum-mag hydroxide-simethicone 10 ml PO Q6H PRN indigestion 06/21/21 09/26/22 09/26/22 Rx 200 mg-200 mg-20 mg/5 mL oral susp #3,000 mL (Giana-Lanta) guaifenesin 100 mg/5 mL oral 200 mg (10 mL) PO Q4H PRN cough 06/21/21 09/26/22 09/26/22 Rx liquid (Adult Tussin Chest #473 mL Congestion) divalproex 250 mg tablet,delayed 250 mg PO BID #60 tabs 06/14/22 09/26/22 09/26/22 Rx release (Depakote) blood sugar diagnostic (True #100 ea 06/16/22 08/30/22 Unknown Rx Metrix Glucose Test Strip) lancets 30 gauge (TRUEplus Lancets) ##100 06/16/22 08/30/22 Unknown Rx glucose 4 gram chewable tablet See Rx Instructions .Route 06/28/22 09/26/22 09/26/22 Rx .COMPLEX #50 ea lacosamide 200 mg tablet (Vimpat) 200 mg PO BID #60 tabs 06/29/22 09/26/22 09/27/22 Rx lorazepam 1 mg tablet 0.5 mg PO DAILY PRN Seizures 07/24/22 09/28/22 09/26/22 History olanzapine 5 mg tablet (Zyprexa) 5 mg PO BID 07/24/22 09/26/22 09/26/22 History sitagliptin phosphate 100 mg 100 mg PO DAILY 07/24/22 09/26/22 09/27/22 History tablet (Januvia) bisacodyl 5 mg tablet 20 mg PO ONCE #4 tabs 08/23/22 09/26/22 09/27/22 Rx glimepiride 4 mg tablet 4 mg PO DAILY 08/23/22 09/26/22 09/27/22 History aspirin 81 mg tablet,delayed 81 mg PO DAILY 09/26/22 09/26/22 09/24/22 History release calcium carbonate 500 mg-vitamin 1 tab PO DAILY 09/26/22 09/26/22 09/26/22 History D3 5 mcg (200 unit) tablet (Oyster Shell Calcium-Vitamin D3) diphenhydramine HCl 25 mg tablet 25 mg PO DAILY 09/26/22 09/26/22 09/27/22 History (Allergy Relief (diphenhydramine)) ketoconazole 2 % shampoo 1 applic topical .4XWEEK 09/26/22 09/26/22 09/26/22 History loratadine 10 mg tablet 10 mg PO DAILY 09/26/22 09/26/22 09/27/22 History multivitamin-ferrous 1 tab PO DAILY 09/26/22 09/26/22 09/26/22 History fumarate-folic acid 18 mg-400 mcg tablet (Sentry) pantoprazole 40 mg tablet,delayed 40 mg PO BID 09/26/22 09/26/22 09/26/22 History release paroxetine HCl 30 mg tablet 30 mg PO DAILY 09/26/22 09/26/22 09/26/22 History polyethylene glycol 3350 17 17 g PO DAILY 09/26/22 09/26/22 09/26/22 History gram/dose oral powder sucralfate 1 gram tablet See Rx Instructions .Route 09/26/22 09/28/22 09/27/22 Rx .COMPLEX #60 tabs trazodone 50 mg tablet 25 mg PO BEDTIME 09/26/22 09/26/22 09/26/22 History magnesium hydroxide 400 mg/5 mL 1 ml PO PRN PRN Acid Reflux 09/28/22 09/28/22 Unknown History oral suspension (Milk of Magnesia) Allergies Allergy/AdvReac Type Severity Reaction Status Date / Time carbamazepine [From Tegretol] Allergy Unknown Verified 09/26/22 08:50 gabapentin [From Neurontin] Allergy Unknown Verified 09/26/22 08:50 haloperidol [From Haldol] Allergy Unknown Verified 09/26/22 08:50 levothyroxine sodium Allergy Unknown Verified 09/26/22 08:50 [From Levoxyl] Penicillins Allergy Unknown Verified 09/26/22 08:50 Current Medications Generic Name Dose Route Start Last Admin Trade Name Freq PRN Reason Stop Dose Admin Sodium Chloride 1,000 mls @ 30 mls/hr 09/28/22 08:15 09/28/22 08:58 Sodium Chloride 0.9% IV 09/29/22 08:14 30 mls/hr .Q24H PAULO Administration PFSH Anesthesia Medical History ADD (attention deficit disorder) Bipolar affective disorder Cerebral palsy Diabetes Seizures TBI (traumatic brain injury) Surgical History History of colonoscopy 12/11/2012 - NORMAL History of hip surgery Social History Smoking and tobacco status: never smoked Alcohol intake: never Data Anesthesia Cardiac Studies: No Data to Display
--- NOTE | 2022-09-28 10:08 | P.HP_ITS ---
Providers/Chief Complaint Primary Care Provider: Bernard Gonzalez DO Chief Complaint: K92.2, D64.9 History of Present Illness Leandra Sorto is a 62 year old male here for EGD and colonoscopy Medications/Allergies Home Medications Medication Instructions Recorded Confirmed Last Taken Type acetaminophen 325 mg capsule 650 mg PO Q6H PRN Pain 10/02/19 09/26/22 Unknown History (Tylenol) multivitamin 1 cap PO DAILY 10/02/19 09/26/22 09/26/22 History aluminum-mag hydroxide-simethicone 10 ml PO Q6H PRN indigestion 06/21/21 09/26/22 09/26/22 Rx 200 mg-200 mg-20 mg/5 mL oral susp #3,000 mL (Giana-Lanta) guaifenesin 100 mg/5 mL oral 200 mg (10 mL) PO Q4H PRN cough 06/21/21 09/26/22 09/26/22 Rx liquid (Adult Tussin Chest #473 mL Congestion) divalproex 250 mg tablet,delayed 250 mg PO BID #60 tabs 06/14/22 09/26/22 09/26/22 Rx release (Depakote) blood sugar diagnostic (True #100 ea 06/16/22 08/30/22 Unknown Rx Metrix Glucose Test Strip) lancets 30 gauge (TRUEplus Lancets) ##100 06/16/22 08/30/22 Unknown Rx glucose 4 gram chewable tablet See Rx Instructions .Route 06/28/22 09/26/22 09/26/22 Rx .COMPLEX #50 ea lacosamide 200 mg tablet (Vimpat) 200 mg PO BID #60 tabs 06/29/22 09/26/22 09/27/22 Rx lorazepam 1 mg tablet 0.5 mg PO DAILY PRN Seizures 07/24/22 09/28/22 09/26/22 History olanzapine 5 mg tablet (Zyprexa) 5 mg PO BID 07/24/22 09/26/22 09/26/22 History sitagliptin phosphate 100 mg 100 mg PO DAILY 07/24/22 09/26/22 09/27/22 History tablet (Januvia) bisacodyl 5 mg tablet 20 mg PO ONCE #4 tabs 08/23/22 09/26/22 09/27/22 Rx glimepiride 4 mg tablet 4 mg PO DAILY 08/23/22 09/26/22 09/27/22 History aspirin 81 mg tablet,delayed 81 mg PO DAILY 09/26/22 09/26/22 09/24/22 History release calcium carbonate 500 mg-vitamin 1 tab PO DAILY 09/26/22 09/26/22 09/26/22 History D3 5 mcg (200 unit) tablet (Oyster Shell Calcium-Vitamin D3) diphenhydramine HCl 25 mg tablet 25 mg PO DAILY 09/26/22 09/26/22 09/27/22 History (Allergy Relief (diphenhydramine)) ketoconazole 2 % shampoo 1 applic topical .4XWEEK 09/26/22 09/26/22 09/26/22 History loratadine 10 mg tablet 10 mg PO DAILY 09/26/22 09/26/22 09/27/22 History multivitamin-ferrous 1 tab PO DAILY 09/26/22 09/26/22 09/26/22 History fumarate-folic acid 18 mg-400 mcg tablet ([facility]) pantoprazole 40 mg tablet,delayed 40 mg PO BID 09/26/22 09/26/22 09/26/22 History release paroxetine HCl 30 mg tablet 30 mg PO DAILY 09/26/22 09/26/22 09/26/22 History polyethylene glycol 3350 17 17 g PO DAILY 09/26/22 09/26/22 09/26/22 History gram/dose oral powder sucralfate 1 gram tablet See Rx Instructions .Route 09/26/22 09/28/22 09/27/22 Rx .COMPLEX #60 tabs trazodone 50 mg tablet 25 mg PO BEDTIME 09/26/22 09/26/22 09/26/22 History magnesium hydroxide 400 mg/5 mL 1 ml PO PRN PRN Acid Reflux 09/28/22 09/28/22 Unknown History oral suspension (Milk of Magnesia) Allergies Allergy/AdvReac Type Severity Reaction Status Date / Time carbamazepine [From Tegretol] Allergy Unknown Verified 09/26/22 08:50 gabapentin [From Neurontin] Allergy Unknown Verified 09/26/22 08:50 haloperidol [From Haldol] Allergy Unknown Verified 09/26/22 08:50 levothyroxine sodium Allergy Unknown Verified 09/26/22 08:50 [From Levoxyl] Penicillins Allergy Unknown Verified 09/26/22 08:50 PFSH Acute PFSH: Medical History ADD (attention deficit disorder) Bipolar affective disorder Cerebral palsy Diabetes Seizures TBI (traumatic brain injury) Surgical History History of colonoscopy 12/11/2012 - NORMAL History of hip surgery Social History Smoking and tobacco status: never smoked Alcohol intake: never Vitals/I&O/Wt Last Vital Signs Temp 97.1 F L 09/28/22 08:54 Pulse 78 09/28/22 08:54 Resp 18 09/28/22 08:54 BP 117/75 09/28/22 08:54 Pulse Ox 100 09/28/22 08:54 O2 Del Method Room Air 09/28/22 08:54 A&P Assessment and plan (1) GI bleed: (2) Colon cancer screening: Plan EGD and colonoscopy Attestations Medical Necessity Statement*: Home Coding Level of Care Code Acute Code for Chg Fwd Diagnoses GI bleed K92.2 Colon cancer screening Z12.11
[2022-09-28] MEDS: EPINEPHrine 1 mg/mL INJ XX (10:23)
[2022-09-28 10:49] VITALS: BP 124/74; PULSE 65; RESP 14; O2SAT 96
[2022-09-28 11:00] VITALS: BP 135/81; PULSE 58; RESP 16; O2SAT 99
--- NOTE | 2022-09-28 11:58 | ANE.PACU2 ---
Inpatient post-anesthesia follow up: Airway intact: Yes Vital signs: Temperature 97.1 F Pulse Rate 58 Respiratory Rate 16 Blood Pressure 135/81 Pulse Oximetry 99 Oxygen Delivery Me thod Room Air Oxygen Flow Rate Fraction of Inspir ed Oxygen Hydration adequate: Yes Nausea and vomiting: No Pain level: 1 Mental status: Baseline
== END 2022-09-28 11:18 | disposition home or self-care (01) ==
PROVIDERS: PCP Family Medicine; Visit Provider Surgery
PROC: 0DJ08ZZ Inspection of Upper Intestinal Tract, Via Natural or Artificial Opening Endoscopic (ICD-10-PCS; CPT 43235; principal; 2022-09-28 09:30)
PROC: 0DJD8ZZ Inspection of Lower Intestinal Tract, Via Natural or Artificial Opening Endoscopic (ICD-10-PCS; CPT 45378; 2022-09-28 09:30)
DX: D64.9 Anemia, unspecified (principal); K92.2 Gastrointestinal hemorrhage, unspecified; K21.9 Gastro-esophageal reflux disease without esophagitis; E11.9 Type 2 diabetes mellitus without complications; F31.9 Bipolar disorder, unspecified; R56.9 Unspecified convulsions; F98.8 Other specified behavioral and emotional disorders with onset usually occurring in childhood and adolescence; Z79.84 Long term (current) use of oral hypoglycemic drugs; G80.9 Cerebral palsy, unspecified; K29.70 Gastritis, unspecified, without bleeding; B96.81 Helicobacter pylori [H. pylori] as the cause of diseases classified elsewhere
CPT/HCPCS: 43255; 45378; 88305; 88342; G0121; J0171; J2704; J7030

== ENCOUNTER → 2022-10-05 14:50 | Outpatient (BNVA) | payer MEDICARE, MEDICAID, SELFPAY | PROVIDERS: PCP Family Medicine; Visit Provider Surgery | DX: Z09 Encounter for follow-up examination after completed treatment for conditions other than malignant neoplasm (principal); K29.70 Gastritis, unspecified, without bleeding; B96.81 Helicobacter pylori [H. pylori] as the cause of diseases classified elsewhere | CPT/HCPCS: 99213 ==

== ENCOUNTER → 2022-10-11 09:13 | Outpatient (BNVA) | payer MEDICARE, MEDICAID, SELFPAY | PROVIDERS: PCP Family Medicine; Visit Provider Physician Assistant | DX: M25.559 Pain in unspecified hip (principal) | CPT/HCPCS: 73502; 99024 ==

== ENCOUNTER 2022-11-02 06:57 | Day surgery (SDC) | payer MEDICARE, MEDICAID, SELFPAY ==
[2022-11-02 07:11] VITALS: BMI 21.9
[2022-11-02 07:19] VITALS: BP 119/79; PULSE 77; RESP 16; TEMP 36.2; O2SAT 97
[2022-11-02] MEDS: sodium chloride 0.9% 1,000 ML 30 ML IV (07:28)
[2022-11-02 07:32] LABS: Glucose Point of Care 86 mg/dL (70-110)
--- NOTE | 2022-11-02 07:51 | W.PM.OPSUD ---
Surgery/Procedure H&P Update DATE OF PROCEDURE: November 02, 2022 DATE H&P PERFORMED: 10/05/22 H&P UPDATE INFORMATION: I have reviewed H&P completed within last 30 days, I have examined patient prior to procedure and No changes to prior documentation PLANNED PROCEDURE: Operation Date: 11/02/22 08:30 Proposed Procedures p Colonoscopy 05109,Z12.11(Not Applicable) - Tarik Carter, DO
--- NOTE | 2022-11-02 07:59 | ANES.PREANE2 ---
Pre-Anesthetic Assessment Height/Weight: Height 1.7 m Weight 63.503 kg Temp Pulse Resp BP Pulse Ox O2 Del Method 97.2 F L 77 16 119/79 97 Room Air 11/02/22 07:19 11/02/22 07:19 11/02/22 07:19 11/02/22 07:19 11/02/22 07:19 11/02/22 07:19 Preop Diagnosis: Screening Operation Date: 11/02/22 08:30 Proposed Procedures p Colonoscopy 99198,Z12.11(Not Applicable) - Tarik Carter, DO Was Beta Maggie taken within 24 hours: N/A Was Clonidine taken within 24 hours: N/A Last intake: Intake Last Liquid Date 11/01/22 Last Liquid Time 18:00 Last Solid Date 10/30/22 Last Solid Time 19:00 Social No alcohol and No tobacco Exam alert, clear to auscultation bilaterally and regular rate & rhythm Airway Submandibular: within normal limits Cervical ROM: within normal limits Mallampati: Class II Comments: Comments: poor dentition History/ROS No significant history except as noted and No significant complaints Pulmonary None reported CV/HEM None reported None reported Hepatic None reported GI None reported Metabolic Diabetes Mellitus Neuropsych Bipolar and Seizure Cerebral palsy. Hx traumatic head injury Anesthetic Plan ASA status: 3 Anesthesia: Anesthesia Evaluation and MAC Risk of > 500 ml blood loss (7ml/kg in children): No Medications/Allergies Home Medications Medication Instructions Recorded Confirmed Last Taken Type acetaminophen 325 mg capsule 650 mg PO Q6H PRN Pain 10/02/19 11/02/22 11/01/22 History (Tylenol) multivitamin 1 cap PO DAILY 10/02/19 11/02/22 11/01/22 History aluminum-mag hydroxide-simethicone 10 ml PO Q6H PRN indigestion 06/21/21 11/02/22 11/01/22 Rx 200 mg-200 mg-20 mg/5 mL oral susp #3,000 mL (Giana-Lanta) guaifenesin 100 mg/5 mL oral 200 mg (10 mL) PO Q4H PRN cough 06/21/21 11/02/22 11/01/22 Rx liquid (Adult Tussin Chest #473 mL Congestion) divalproex 250 mg tablet,delayed 250 mg PO BID #60 tabs 06/14/22 11/02/22 11/01/22 Rx release (Depakote) blood sugar diagnostic (True #100 ea 06/16/22 11/02/22 Unknown Rx Metrix Glucose Test Strip) lancets 30 gauge (TRUEplus Lancets) ##100 06/16/22 11/02/22 Unknown Rx glucose 4 gram chewable tablet See Rx Instructions .Route 06/28/22 11/02/22 11/01/22 Rx .COMPLEX #50 ea lacosamide 200 mg tablet (Vimpat) 200 mg PO BID #60 tabs 06/29/22 11/02/22 11/01/22 Rx lorazepam 1 mg tablet 0.5 mg PO DAILY PRN Seizures 07/24/22 11/02/22 11/01/22 History glimepiride 4 mg tablet 4 mg PO DAILY 08/23/22 11/02/22 10/31/22 History diphenhydramine HCl 25 mg tablet 25 mg PO DAILY 09/26/22 11/02/22 11/01/22 History (Allergy Relief (diphenhydramine)) ketoconazole 2 % shampoo 1 applic topical .4XWEEK 09/26/22 11/02/22 11/01/22 History loratadine 10 mg tablet 10 mg PO DAILY 09/26/22 11/02/22 11/01/22 History paroxetine HCl 30 mg tablet 30 mg PO DAILY 09/26/22 11/02/22 11/01/22 History polyethylene glycol 3350 17 17 g PO DAILY 09/26/22 11/02/22 11/01/22 History gram/dose oral powder trazodone 50 mg tablet 25 mg PO BEDTIME 09/26/22 11/02/22 11/01/22 History magnesium hydroxide 400 mg/5 mL 1 ml PO PRN PRN Acid Reflux 09/28/22 11/02/22 11/01/22 History oral suspension (Milk of Magnesia) bisacodyl 5 mg tablet 20 mg PO ONCE #4 tabs 10/05/22 11/02/22 11/01/22 Rx clarithromycin 500 mg tablet 500 mg PO BID 14 days #28 tabs 10/05/22 11/02/22 11/01/22 Rx loperamide 2 mg tablet (Imodium 2 mg PO QID PRN loose stool 30 04/11/02/22 11/01/22 Rx A-D) days #60 tabs metronidazole 500 mg tablet 500 mg PO TID 14 days #42 tabs 10/05/22 11/02/22 11/01/22 Rx pantoprazole 40 mg tablet,delayed See Rx Instructions .Route 10/05/22 11/02/22 11/01/22 Rx release .COMPLEX #60 tabs polyethylene glycol 3350 17 238 g PO ONCE #238 grams 10/05/22 11/02/22 11/01/22 Rx gram/dose oral powder (Miralax) calcium carbonate 500 mg-vitamin See Rx Instructions .Route 10/11/22 11/02/22 11/01/22 Rx D3 5 mcg (200 unit) tablet (Oyster .COMPLEX #30 tabs Shell Calcium-Vitamin D3) multivitamin-ferrous See Rx Instructions .Route 10/11/22 11/02/22 11/01/22 Rx fumarate-folic acid 18 mg-400 mcg .COMPLEX #30 tabs tablet (Sentry) aspirin 81 mg tablet,delayed See Rx Instructions .Route 10/24/22 11/02/22 10/31/22 Rx release .COMPLEX #30 tabs sitagliptin phosphate 100 mg See Rx Instructions .Route 10/24/22 11/02/22 10/31/22 Rx tablet (Januvia) .COMPLEX #30 tabs olanzapine 10 mg tablet See Rx Instructions .Route 11/01/22 11/02/22 11/01/22 Rx .COMPLEX #30 tabs Allergies Allergy/AdvReac Type Severity Reaction Status Date / Time carbamazepine [From Tegretol] Allergy Unknown Verified 10/11/22 09:14 gabapentin [From Neurontin] Allergy Unknown Verified 10/11/22 09:14 haloperidol [From Haldol] Allergy Unknown Verified 10/11/22 09:14 levothyroxine sodium Allergy Unknown Verified 10/11/22 09:14 [From Levoxyl] Penicillins Allergy Unknown Verified 10/11/22 09:14 Current Medications Generic Name Dose Route Start Last Admin Trade Name Freq PRN Reason Stop Dose Admin Sodium Chloride 1,000 mls @ 30 mls/hr 11/02/22 07:15 11/02/22 07:28 Sodium Chloride 0.9% IV 11/03/22 07:14 30 mls/hr .Q24H PAULO Administration PFSH Anesthesia Medical History ADD (attention deficit disorder) Bipolar affective disorder Cerebral palsy Diabetes Seizures TBI (traumatic brain injury) Surgical History History of colonoscopy 12/11/2012 - NORMAL History of hip surgery Social History Smoking and tobacco status: never smoked Alcohol intake: never Data Anesthesia Cardiac Studies: No Data to Display
[2022-11-02 09:27] VITALS: BP 101/70; PULSE 72; RESP 20; TEMP 36.1; O2SAT 100
[2022-11-02 09:43] VITALS: BP 135/71; PULSE 72; RESP 18; O2SAT 98
--- NOTE | 2022-11-02 14:14 | ANE.PACU2 ---
Inpatient post-anesthesia follow up: Airway intact: Yes Vital signs: Temperature 97 F Pulse Rate 72 Respiratory Rate 18 Blood Pressure 135/71 Pulse Oximetry 98 Oxygen Delivery Me thod Room Air Oxygen Flow Rate Fraction of Inspir ed Oxygen Hydration adequate: Yes Nausea and vomiting: No Pain level: 2 Mental status: Baseline
== END 2022-11-02 09:58 | disposition home or self-care (01) ==
PROVIDERS: PCP Family Medicine; Visit Provider Surgery
PROC: 0DJD8ZZ Inspection of Lower Intestinal Tract, Via Natural or Artificial Opening Endoscopic (ICD-10-PCS; CPT 45378; principal; 2022-11-02 08:30)
DX: Z12.11 Encounter for screening for malignant neoplasm of colon (principal); E11.9 Type 2 diabetes mellitus without complications; Z79.82 Long term (current) use of aspirin; Z79.84 Long term (current) use of oral hypoglycemic drugs
CPT/HCPCS: 36416; 82962; G0121; J2405; J2704; J7030

== ENCOUNTER → 2022-11-08 09:10 | Outpatient (BNVA) | payer MEDICARE, MEDICAID, SELFPAY | PROVIDERS: PCP Family Medicine; Visit Provider Specialist | DX: F31.9 Bipolar disorder, unspecified (principal); G40.109 Localization-related (focal) (partial) symptomatic epilepsy and epileptic syndromes with simple partial seizures, not intractable, without status epilepticus; G40.409 Other generalized epilepsy and epileptic syndromes, not intractable, without status epilepticus | CPT/HCPCS: 99214 ==

== ENCOUNTER → 2023-01-05 10:58 | Outpatient (BNVA) | payer MEDICARE, MEDICAID, SELFPAY | PROVIDERS: PCP Family Medicine; Visit Provider Podiatrist Foot & Ankle Surgery | DX: E11.65 Type 2 diabetes mellitus with hyperglycemia (principal); G62.9 Polyneuropathy, unspecified; Z86.31 Personal history of diabetic foot ulcer; E11.42 Type 2 diabetes mellitus with diabetic polyneuropathy | CPT/HCPCS: 99203 ==

== ENCOUNTER → 2023-05-19 15:31 | Outpatient (BNVA) | payer MEDICARE, MEDICAID, SELFPAY | PROVIDERS: PCP Family Medicine; Visit Provider Specialist | DX: G40.109 Localization-related (focal) (partial) symptomatic epilepsy and epileptic syndromes with simple partial seizures, not intractable, without status epilepticus (principal); G80.9 Cerebral palsy, unspecified; F31.9 Bipolar disorder, unspecified | CPT/HCPCS: 99213 ==

== ENCOUNTER → 2023-06-29 11:12 | Outpatient (BNVA) | payer MEDICARE, MEDICAID, SELFPAY | PROVIDERS: PCP Family Medicine; Visit Provider Podiatrist Foot & Ankle Surgery | DX: E11.8 Type 2 diabetes mellitus with unspecified complications (principal); E11.65 Type 2 diabetes mellitus with hyperglycemia; G62.9 Polyneuropathy, unspecified; Z86.31 Personal history of diabetic foot ulcer; E11.42 Type 2 diabetes mellitus with diabetic polyneuropathy | CPT/HCPCS: 99213 ==

== ENCOUNTER → 2023-12-22 12:27 | Outpatient (BNVA) | payer MEDICARE, MEDICAID, SELFPAY | PROVIDERS: PCP Family Medicine; Visit Provider Specialist | DX: G40.109 Localization-related (focal) (partial) symptomatic epilepsy and epileptic syndromes with simple partial seizures, not intractable, without status epilepticus (principal); R29.90 Unspecified symptoms and signs involving the nervous system; G80.9 Cerebral palsy, unspecified; F31.9 Bipolar disorder, unspecified | CPT/HCPCS: 99214 ==

== ENCOUNTER → 2024-06-25 08:45 | Outpatient (BNVA) | payer MEDICARE, MEDICAID, SELFPAY | PROVIDERS: PCP Family Medicine; Visit Provider Specialist | DX: G40.109 Localization-related (focal) (partial) symptomatic epilepsy and epileptic syndromes with simple partial seizures, not intractable, without status epilepticus (principal); F31.73 Bipolar disorder, in partial remission, most recent episode manic; G80.9 Cerebral palsy, unspecified | CPT/HCPCS: 99213 ==

== ENCOUNTER → 2024-06-26 11:07 | Outpatient (BNVA) | payer MEDICARE, MEDICAID, SELFPAY | PROVIDERS: PCP Family Medicine; Visit Provider Podiatrist Foot & Ankle Surgery | DX: E11.8 Type 2 diabetes mellitus with unspecified complications (principal); E11.65 Type 2 diabetes mellitus with hyperglycemia; G62.9 Polyneuropathy, unspecified; Z86.31 Personal history of diabetic foot ulcer | CPT/HCPCS: 99213 ==

== ENCOUNTER → 2024-12-24 08:39 | Outpatient (BNVA) | payer MEDICARE, MEDICAID, SELFPAY | PROVIDERS: PCP Family Medicine; Visit Provider Specialist | DX: G40.109 Localization-related (focal) (partial) symptomatic epilepsy and epileptic syndromes with simple partial seizures, not intractable, without status epilepticus (principal); F31.73 Bipolar disorder, in partial remission, most recent episode manic; G80.9 Cerebral palsy, unspecified | CPT/HCPCS: 99213 ==

== ENCOUNTER 2025-01-19 09:49 | Emergency (ER) | payer MEDICARE, MEDICAID, SELFPAY ==
[2025-01-19 09:57] VITALS: PULSE 73; RESP 16; O2SAT 100
--- NOTE | 2025-01-19 09:58 | XRR_ITS ---
PROCEDURE INFORMATION: Exam: XR Left Wrist Exam date and time: 01/19/2025 10:28 AM Age: 64 years old Clinical indication: Pain; Wrist; Left; Additional info: Lt wrist discomfort after fall today; Previous FX of lt wrist TECHNIQUE: Imaging protocol: Radiologic exam of the left wrist. Views: 3 or more views. COMPARISON: No relevant prior studies available. FINDINGS: Bones/joints: There are old comminuted fractures of the distal radius. No acute fractures are identified. There is narrowing of the carpal radial joint space. Soft tissues: Normal. XR/XR wrist LT min 3V* [id number] IMPRESSION: Old comminuted radial fracture. No acute abnormality identified.
--- NOTE | 2025-01-19 10:13 | CTR_ITS ---
PROCEDURE INFORMATION: Exam: CT Head Without Contrast Exam date and time: 01/19/2025 10:42 AM Age: 64 years old Clinical indication: Injury or trauma; Fall; Blunt trauma (contusions or hematomas) TECHNIQUE: Imaging protocol: Computed tomography of the head without contrast. Radiation optimization: All CT scans at this facility use at least one of these dose optimization techniques: automated exposure control; mA and/or kV adjustment per patient size (includes targeted exams where dose is matched to clinical indication); or iterative reconstruction. COMPARISON: No relevant prior studies available. RADIATION DOSE METRICS: Total DLP (mGy-cm): 1069.83 FINDINGS: Brain: Brain parenchyma is normal in appearance. No intracranial hemorrhage identified. Cerebral ventricles: Ventricles, sulci and cisterns are within normal limits. Paranasal sinuses: Visualized sinuses are unremarkable. No fluid levels. Mastoid air cells: Visualized mastoid air cells are well aerated. Orbital cavities: There is calcification of the left lens. The right [place] lens is absent. Bones: Bony structures are normal in appearance without evidence of fracture. Soft tissues: Mild soft tissue swelling is present over the right posterior parietal bone. CT/CT head wo con* [id number] IMPRESSION: 1. Mild soft tissue swelling over the right parietal bone. 2. No acute intracranial abnormality.
--- NOTE | 2025-01-19 10:22 | W.ED.WOUNDLC ---
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 Associated symptoms: Denies chills, fever(s), nausea or vomiting Related Data Home Medications ?Medication ?Instructions ?Recorded ?Confirmed aluminum-mag hydroxide-simethicone 10 ml PO Q6H PRN Indigestion 01/19/25 01/19/25 200 mg-200 mg-20 mg/5 mL oral susp (Giana-Lanta) aspirin 81 mg tablet,delayed 81 mg PO DAILY 01/19/25 01/19/25 release calcium 500 mg (as 1 tab PO DAILY 01/19/25 01/19/25 carbonate)-vitamin D3 5 mcg (200 unit) tablet (Oyster Shell Calcium-Vitamin D3) cetirizine 10 mg tablet 10 mg PO DAILY 01/19/25 01/19/25 dextromethorphan-guaifenesin 10 10 ml PO Q4H PRN Cough 01/19/25 01/19/25 mg-100 mg/5 mL oral syrup (Robafen DM Cough-Chest Congestion) diphenhydramine HCl 25 mg capsule 25 mg PO Q8H PRN Congestion 01/19/25 01/19/25 (Banophen) divalproex 250 mg tablet,delayed 250 mg PO BID 01/19/25 01/19/25 release glimepiride 4 mg tablet 4 mg PO DAILY 01/19/25 01/19/25 multivitamin-ferrous 1 tab PO DAILY 01/19/25 01/19/25 fumarate-folic acid 18 mg-400 mcg tablet (Sentry) olanzapine 10 mg tablet 5 mg PO BID 01/19/25 01/19/25 pantoprazole 40 mg tablet,delayed 40 mg PO BID 01/19/25 01/19/25 release paroxetine HCl 30 mg tablet 30 mg PO DAILY 01/19/25 01/19/25 sitagliptin phosphate 100 mg 100 mg PO DAILY 01/19/25 01/19/25 tablet (Januvia) trazodone 50 mg tablet 25 mg PO BEDTIME 01/19/25 01/19/25 Previous Rx's ?Medication ?Instructions ?Recorded bisacodyl 5 mg tablet 20 mg (4 x 5 mg) PO ONCE #4 tabs 10/05/22 diabetic shoes with 3 inserts #1 ea 01/05/23 blood glucose control, low (True #1 ea 10/17/23 Metrix Level 1 solution) acetaminophen 325 mg tablet See Rx Instructions .Route 11/28/23 .COMPLEX #120 tabs carbamide peroxide 6.5 % ear drops See Rx Instructions .Route 01/22/24 (Ear Wax Removal Drops) .COMPLEX #15 mL magnesium hydroxide 400 mg/5 mL See Rx Instructions .Route 02/07/24 oral suspension (Milk of Magnesia) .COMPLEX #473 mL glucose 4 gram chewable tablet See Rx Instructions .Route 05/13/24 .COMPLEX #50 ea ketoconazole 2 % shampoo See Rx Instructions .Route 05/28/24 .COMPLEX #240 mL blood sugar diagnostic (True #100 ea 07/02/24 Metrix Glucose Test Strip) lancets 30 gauge (TRUEplus Lancets) #100 ea 07/02/24 loperamide 2 mg capsule See Rx Instructions .Route 08/07/24 .COMPLEX #60 caps lorazepam 0.5 mg tablet 0.5 mg PO Q4H PRN agitation #30 08/28/24 tabs polyethylene glycol 3350 17 See Rx Instructions .Route 10/29/24 gram/dose oral powder .COMPLEX #1,530 grams lacosamide 200 mg tablet (Vimpat) 200 mg PO BID #60 tabs 12/24/24 Allergies Allergy/AdvReac Type Severity Reaction Status Date / Time carbamazepine (From Tegretol) Allergy Unknown Verified 12/24/24 08:45 gabapentin (From Neurontin) Allergy Unknown Verified 12/24/24 08:45 haloperidol (From Haldol) Allergy Unknown Verified 12/24/24 08:45 levothyroxine sodium (From Allergy Unknown Verified 12/24/24 08:45 Levoxyl) Penicillins Allergy Unknown Verified 12/24/24 08:45 Review of Systems Const: Denies: fever(s), chills, body aches or change in appetite Eyes: Denies: blurry vision or eye discomfort ENMT: Denies: throat pain or dental pain Card: Denies: chest pain GI: Denies: nausea or vomiting Musc: Reports: extremity pain; Denies: neck pain or back pain Neuro: Reports: headache(s) PFSH ED PFSH: Medical History TBI (traumatic brain injury) Cerebral palsy ADD (attention deficit disorder) Bipolar affective disorder Seizures Diabetes Surgical History History of hip surgery History of colonoscopy 12/11/2012 - NORMAL Social History Smoking and tobacco/nicotine status: never used tobacco/nicotine Alcohol intake: never Physical Exam Const: COMMON NORMALS: no acute distress, patient oriented x3 and healthy appearing HENMT: COMMON NORMALS: normocephalic HEAD & SCALP: normocephalic OTHER: 1 cm laceration above left eye also has a 2 cm stellate laceration over left lip not involving the vermilion border Eye: COMMON NORMALS: Equal, round and reactive pupils present and EOMs intact bilaterally PUPIL: Yes Equal, round and reactive pupils present Neck/C-Spine: COMMON NORMALS: full ROM and supple Chest: COMMONS NORMALS: normal inspection of the chest Resp: COMMON NORMALS: normal respiratory effort Cardio: COMMON NORMALS: regular rate, regular rhythm and No murmurs present (Cardio) RATE: regular rate RHYTHM: regular rhythm GI: COMMON NORMALS: Normal to inspection, nondistended, normoactive bowel sounds present, Soft to palpation, non-tender and no masses PALPATION: Yes Soft to palpation Extremity: COMMON NORMALS: normal to inspection and full ROM NARRATIVE EXTREMITY EXAM: Some slight tenderness to the left wrist no obvious deformity Neuro: COMMON NORMALS: patient oriented x3, moves all extremities and no focal motor deficits Psych: COMMON NORMALS: mental status grossly normal, Normal thought process present and cooperative THOUGHT PROCESS: Normal thought process present Skin: COMMON NORMALS: no rashes or lesions noted and no wounds GENERAL SKIN EXAM: no rashes or lesions noted Procedures Laceration Laceration 1: Site: face Side (If applicable): left Size (cm): 1 Description: linear Depth: simple, single layer Pre-repair: wound explored and irrigated extensively Skin layer closed with: nylon Size (cm): 5-0 Technique: simple, interrupted Laceration 2: Site: lip Side (If applicable): left Size (cm): 2 Description: stellate Depth: simple, single layer Local Anesthetic: lidocaine 1% Amount of anesthesia used (mL): 8 Pre-repair: wound explored, irrigated extensively and deep structures intact Skin layer closed with: nylon Size (cm): 5-0 Number of sutures: 4 Course Vital Signs: Vital signs: Vital Signs Pulse Rate 73 01/19/25 09:57 Respiratory Rate 16 01/19/25 09:57 Pulse Oximetry 100 01/19/25 09:57 Oxygen Delivery Me thod Room Air 01/19/25 09:57 MDM - Wound/Laceration Medical Decision Making Patient presents here with lip laceration after a fall flat small laceration above his left eye did repair both imaging here is negative he is to have sutures removed in 1 week Medical Records I reviewed the patient's medical records. Lab Data Radiology Impressions Wrist X-Ray 01/19/25 09:58 IMPRESSION: Old comminuted radial fracture. No acute abnormality identified. Head CT 01/19/25 10:13 IMPRESSION: 1. Mild soft tissue swelling over the right parietal bone. 2. No acute intracranial abnormality. All radiology interpretation(s) finalized by discharge Discharge Plan Discharge Patient Disposition: Home Clinical Impression: Laceration, Fall Condition: Stable Prescriptions: No Action bisacodyl 5 mg tablet 20 mg PO ONCE Qty: 4 0RF Rx Instructions: Take 4 tablet all at once at 8 am the day before colonoscopy Vimpat 200 mg tablet 200 mg PO BID Qty: 60 5RF (DME) diabetic shoes with 3 inserts See Rx Instructions .Route .MEDSUPPLY Qty: 1 0RF Rx Instructions: As directed to HOME (DME) True Metrix Level 1 Solution See Rx Instructions .ROUTE .COMPLEX Qty: 1 12RF Dose Instruction: USE DIRECTED Rx Instructions: USE DIRECTED acetaminophen 325 mg tablet See Rx Instructions .ROUTE .COMPLEX Qty: 120 5RF Dose Instruction: TAKE TWO TABLETS BY MOUTH EVERY 6 HOURS NEEDED FOR PAIN /FEVER >100; NOT TO EXCEED 8 TABS/24 HOURS Rx Instructions: TAKE TWO TABLETS BY MOUTH EVERY 6 HOURS NEEDED FOR PAIN /FEVER >100; NOT TO EXCEED 8 TABS/24 HOURS. Ear Wax Removal Drops 6.5 % drops See Rx Instructions .ROUTE .COMPLEX Qty: 15 5RF Dose Instruction: FILL BOTH CANALS DAILY FOR 4 DAYS OF THE MONTH FOR EAR WAX REMOVAL Rx Instructions: FILL BOTH CANALS DAILY FOR 4 DAYS OF THE MONTH FOR EAR WAX REMOVAL magnesium hydroxide [Milk of Magnesia] 400 mg/5 mL suspension See Rx Instructions .ROUTE .COMPLEX MDD 30mL Qty: 473 5RF Dose Instruction: TAKE 30ML BY MOUTH NEEDED ON FOURTH DAY IF NO BOWEL MOVEMENT IN 3 DAYS; CALL NURSE ON DAY; NOT TO EXCEED 1 DOSE DAILY FOR CONSTIPATION Rx Instructions: GIVE 30ML BY MOUTH NEEDED ON 4th DAY IF NO BM IN 3 DAYS; CALL NURSE ON DAY; FOR CONSTIPATION. glucose 4 gram tablet,chewable See Rx Instructions .ROUTE .COMPLEX Qty: 50 0RF Dose Instruction: ENSURE ALERT & ABLE TO SWALLOW (CALL RN BEFORE USE) CHEW 4 TABLETS NEEDED FOR BLOOD GLUCOSE < 70, RECHECK BLOOD SUGAR 15 MINUTES AFTER ADMINISTRATION. IF STILL BELOW, ADMINISTER 4 ADDITIONAL TABLETS. RECHECK BLOOD SUGAR AFTER 15 MINUTES. NOTIFY RN OF BS & PT STATUS FOR FUTHER INSTUCTIONS. MONITOR FOR S/SX OF HYPO/HYPERGLYCEMIA; NTE 2 DOSES DAILY Rx Instructions: ENSURE ALERT & ABLE TO SWALLOW (CALL RN BEFORE USE) CHEW 4 TABLETS NEEDED FOR BLOOD GLUCOSE < 70, RECHECK BLOOD SUGAR 15 MINUTES AFTER ADMINISTRATION. IF STILL BELOW, ADMINISTER 4 ADDITIONAL TABLETS. RECHECK BLOOD SUGAR AFTER 15 MINUTES. NOTIFY RN OF BS & PT STATUS FOR FUTHER INSTUCTIONS. MONITOR FOR S/SX OF HYPO/HYPERGLYCEMIA; NTE 2 DOSES DAILY ketoconazole 2 % shampoo See Rx Instructions .ROUTE .COMPLEX Qty: 240 0RF Dose Instruction: APPLY TOPICALLY TO SCALP 4 TIMES WEEKLY; M,W,F,SUN FOR SCALY SCALP Rx Instructions: APPLY TOPICALLY TO SCALP 4 TIMES WEEKLY on Monday,Monday,Monday, and Monday. FOR SCALY SCALP (DME) True Metrix Glucose Test Strip Strip See Rx Instructions .ROUTE .COMPLEX Qty: 100 12RF Dose Instruction: CHECK BLOOD SUGAR EVERY DAY IF <70 OR >200 CALL RN *SEE GLUCOSE TAB ORDER FOR <70*........ DOCUMENT BLOOD SUGAR READING Rx Instructions: CHECK BLOOD SUGAR EVERY DAY IF <70 OR >200 CALL RN *SEE GLUCOSE TAB ORDER FOR <70*........ DOCUMENT BLOOD SUGAR READING (DME) lancets [TRUEplus Lancets] 30 gauge misc See Rx Instructions .ROUTE .COMPLEX Qty: 100 12RF Dose Instruction: CHECK BLOOD SUGAR EVERY DAY IF <70 OR >200 CALL RN *SEE GLUCOSE TAB ORDER FOR <70* ............INITIAL ONLY Rx Instructions: CHECK BLOOD SUGAR EVERY DAY IF <70 OR >200 CALL RN *SEE GLUCOSE TAB ORDER FOR <70* ............INITIAL ONLY loperamide 2 mg capsule See Rx Instructions .ROUTE .COMPLEX Qty: 60 0RF Dose Instruction: TAKE ONE CAPSULE BY MOUTH FOUR TIMES DAILY NEEDED FOR LOOSE STOOLS; NOT TO EXCEED 4 TABLETS DAILY Rx Instructions: TAKE ONE CAPSULE BY MOUTH FOUR TIMES DAILY NEEDED FOR LOOSE STOOLS; NOT TO EXCEED 4 TABLETS DAILY lorazepam 0.5 mg tablet 0.5 mg PO Q4H PRN (Reason: agitation) Qty: 30 5RF Rx Instructions: For agitation or seizure polyethylene glycol 3350 17 gram/dose powder See Rx Instructions .ROUTE .COMPLEX Qty: 1530 0RF Dose Instruction: dissolve 1 capful (17gm) in 8 ounces of liquid and drink EVERY DAY FOR CONSTIPATION; HOLD FOR 2 DAYS FOR DIARRHEA Rx Instructions: dissolve 1 capful (17gm) in 8 ounces of liquid and drink EVERY DAY FOR CONSTIPATION; HOLD FOR 2 DAYS FOR DIARRHEA divalproex 250 mg tablet,delayed release (DR/EC) 250 mg PO BID trazodone 50 mg tablet 25 mg PO BEDTIME cetirizine 10 mg tablet 10 mg PO DAILY olanzapine 10 mg tablet 5 mg PO BID dextromethorphan-guaifenesin [Robafen DM Cough-Chest Congest] 10-100 mg/5 mL syrup 10 ml PO Q4H PRN (Reason: Cough) aspirin 81 mg tablet,delayed release (DR/EC) 81 mg PO DAILY paroxetine HCl 30 mg tablet 30 mg PO DAILY pantoprazole 40 mg tablet,delayed release (DR/EC) 40 mg PO BID diphenhydramine HCl [Banophen] 25 mg capsule 25 mg PO Q8H MDD 3 doses daily PRN (Reason: Congestion) glimepiride 4 mg tablet 4 mg PO DAILY alum-mag hydroxide-simeth [Giana-Lanta] 200-200-20 mg/5 mL suspension 10 ml PO Q6H PRN (Reason: Indigestion) calcium carbonate-vitamin D3 [Oyster Shell Calcium-Vit D3] 500 mg-5 mcg (200 unit) tablet 1 tab PO DAILY Januvia 100 mg tablet 100 mg PO DAILY Sentry 18-400 mg-mcg tablet 1 tab PO DAILY Discharge Orders: Discharge ED (Routine); Ordered 01/19/25 Ordered By: Caren Norman Referrals: Bernard Gonzalez DO [Primary Care Provider, Family Practice] - 4-7 days Discharge Diet: Advance as tolerated Discharge Activity: Resume usual activity Patient Instructions: Care For Your Stitches (ED), Laceration (ED) Activity Restrictions/Additional Instructions: suture removal in 7 dyas Print Language: Montserratian Coding Level of Care Code ED Siebel Consultant for Hannah De La Cruz
--- NOTE | 2025-01-19 11:08 | PC.PHAR ---
Pt is from [facility]
[2025-01-19 11:40] VITALS: BP 124/75; PULSE 71; O2SAT 100
== END 2025-01-19 11:42 | disposition home or self-care (01) ==
PROVIDERS: Emergency Provider Emergency Medicine; PCP Family Medicine
DX: S01.511A Laceration without foreign body of lip, initial encounter (principal); S01.112A Laceration without foreign body of left eyelid and periocular area, initial encounter; W01.0XXA Fall on same level from slipping, tripping and stumbling without subsequent striking against object, initial encounter; Z79.84 Long term (current) use of oral hypoglycemic drugs; Z79.899 Other long term (current) drug therapy; Z79.82 Long term (current) use of aspirin; Z88.0 Allergy status to penicillin; Z88.8 Allergy status to other drugs, medicaments and biological substances
CPT/HCPCS: 12013; 70450; 73110; 99284; J9999